=== PATIENT | female | born 1930 | race Caucasian/White ===

== ENCOUNTER 2018-09-29 15:26 | Inpatient (IN) ==
[2018-09-29 16:35] LABS: Calcium 8.9 mg/dL (8.6-10.3); Potassium 4.1 mEq/L (3.5-5.1)
[2018-09-29] MEDS ORDERED: 0.9 % Sodium Chloride 500 ML IVC ONE (16:38)
--- NOTE | 2018-09-29 16:47 | Emergency Department Note ---
Disposition Clinical Impression: SERENITY (acute kidney injury), Suspected UTI Altered mental status Qualifiers: Altered mental status type: unspecified Qualified Code(s): R41.82 - Altered mental status, unspecified Disposition: Admitted As Inpatient Condition: Fair Referrals: Estephania Lopes DO [Primary Care Provider] - Forms: ED Satisfaction Letter General Adult HPI - General Chief complaint: ED Recheck/Abnormal Lab/Rx Stated complaint: abnormal test results Time Seen by Provider: 09/29/18 15:48 Source: patient Limitations: no limitations - History of Present Illness Pain Scale: 9 - Related Data Home Medications Medication Instructions Recorded Confirmed Alendronate Sodium [Fosamax] 35 mg PO QMONTH 09/29/18 09/29/18 Aspirin [Lo-Dose Aspirin EC] 81 mg PO DAILY 09/29/18 09/29/18 Atenolol [Tenormin] 50 mg PO BID 09/29/18 09/29/18 Calcium Carbonate/Vitamin D3 1 each PO BID 09/29/18 09/29/18 [Calcium 500 + Vit D Caplet] Ciprofloxacin HCl [Cipro] 500 mg PO BID 09/29/18 09/29/18 Colesevelam HCl [Welchol] 1,875 mg PO BID 09/29/18 09/29/18 Cyanocobalamin (Vitamin B-12) 1,000 mcg SL MOWEFR 09/29/18 09/29/18 [Vitamin B-12] Docusate [Colace] 100 mg PO BID PRN 09/29/18 09/29/18 Ergocalciferol (VITAMIN D2) 50,000 unit PO GRACE 09/29/18 09/29/18 [Vitamin D2] Furosemide [Lasix] 20 mg PO AD 09/29/18 09/29/18 HYDROcodone/Acet 7.5/325 mg [[place] 1 tab PO Q6H PRN 09/29/18 09/29/18 7.5-325 mg] Insulin ASPART [Novolog Flexpen] 0 units SQ TID 09/29/18 09/29/18 Insulin Glargine,Hum.rec.anlog 42 unit SQ DAILY 09/29/18 09/29/18 [Lantus Solostar] Losartan Potassium [Cozaar] 50 mg PO DAILY 09/29/18 09/29/18 Magnesium Oxide [Magnesium] 400 mg PO DAILY 09/29/18 09/29/18 Memantine [Namenda] 5 mg PO BID 09/29/18 09/29/18 Multivit-Min/Iron Fum/Folic AC 1 each PO DAILY 09/29/18 09/29/18 [Fsjkw-Cckbure-Hrjsdfsx Tablet] [place]-3/Dha/Epa/Fish Oil [Fish Oil 1 each PO BID 09/29/18 09/29/18 1,000 mg Softgel] Pregabalin [Lyrica] 100 mg PO BID 09/29/18 09/29/18 Quetiapine Fumarate [SEROquel] 25 mg PO BID PRN 09/29/18 09/29/18 Ropinirole HCl [Requip] 3 mg PO HS 09/29/18 09/29/18 Allergies Allergy/AdvReac Type Severity Reaction Status Date / Time pravastatin Allergy Anaphylaxis Verified 06/06/15 13:59 atorvastatin AdvReac Muscle Pain Verified 06/06/15 13:59 Past Medical History - Past Medical History Medical history: Reports: dementia, diabetes, hypertension, osteoporosis, renal disease Psychiatric history: Reports: no psych history - Social History Smoking Status: Former smoker Smokeless Tobacco Status: No Alcohol use: Reports: none Drug use: Reports: none Physical Exam - General Limitations: no limitations General appearance: alert, in no apparent distress Course Vital Signs Temperature 99.0 F 09/29/18 15:32 Pulse Rate 67 09/29/18 15:32 Respiratory Rate 18 09/29/18 15:32 Blood Pressure 144/54 09/29/18 15:32 O2 Sat by Pulse Oximetry 97 09/29/18 15:32 Temperature 99.0 F 09/29/18 15:32 Pulse Rate 65 09/29/18 18:55 Respiratory Rate 14 09/29/18 18:55 Blood Pressure 136/56 09/29/18 18:55 O2 Sat by Pulse Oximetry 96 09/29/18 18:55 Oxygen Delivery Oxygen Delivery Room Air Medical Decision Making - Lab Data Result diagrams: 09/29/18 17:03 09/29/18 16:02 Lab Results 09/29/18 09/29/18 09/29/18 Range/Units 16:02 17:03 17:03 WBC 11.7 H (4.3-11.1) K/mcL RBC 3.45 L (3.82-4.97) M/mcL Hgb 10.5 L (11.5-15.4) g/dL Hct 31.9 L (35.3-44.9) % MCV 92.5 (83.0-100.0) fL MCH 30.4 (28.0-33.3) pg MCHC 32.9 (31.6-35.5) g/dL RDW 13.2 (11.5-14.5) % Plt Count 181 (140-400) K/mcL MPV 10.9 (9.4-12.4) fL Sodium 141 (136-145) mEq/L Potassium 4.1 (3.5-5.1) mEq/L Chloride 108 H (98-107) mEq/L Carbon Dioxide 27 (23-29) mEq/L BUN 47 H (8-23) mg/dL Creatinine 1.51 H (0.60-1.20) mg/dL Est GFR ( Amer) 39 L (> 60) Est GFR (Non-Af Amer) 32 L (> 60) BUN/Creatinine Ratio 31 H (6-26) Glucose 222 H (70-105) mg/dL Calculated Osmolality 311 H (280-300) Lactic Acid 0.7 (0.5-2.2) mmol/L Calcium 8.9 (8.6-10.3) mg/dL Urine Color (Yellow) Urine Clarity (Clear) Urine pH (5.0-8.0) pH Units Ur Specific [place] (1.010-1.025) Urine Protein (Neg-Trace) mg/dL Urine Glucose (UA) (Normal) mg/dL Urine Ketones (Negative) mg/dL Urine Blood (Negative) Urine Nitrite (Negative) Urine Bilirubin (Negative) Urine Urobilinogen (Normal) mg/dL Ur Leukocyte Esterase (Negative) Urine Microscopic RBC (0-3) per hpf Urine Microscopic WBC (0-3) per hpf Ur Squamous Epith Cells (None-Few) per lpf Urine Bacteria (None-Few) per hpf Hyaline Casts (None-Few) per lpf Ur Culture Indicated? (NO) 09/29/18 Range/Units 18:09 WBC (4.3-11.1) K/mcL RBC (3.82-4.97) M/mcL Hgb (11.5-15.4) g/dL Hct (35.3-44.9) % MCV (83.0-100.0) fL MCH (28.0-33.3) pg MCHC (31.6-35.5) g/dL RDW (11.5-14.5) % Plt Count (140-400) K/mcL MPV (9.4-12.4) fL Sodium (136-145) mEq/L Potassium (3.5-5.1) mEq/L Chloride (98-107) mEq/L Carbon Dioxide (23-29) mEq/L BUN (8-23) mg/dL Creatinine (0.60-1.20) mg/dL Est GFR ( Amer) (> 60) Est GFR (Non-Af Amer) (> 60) BUN/Creatinine Ratio (6-26) Glucose (70-105) mg/dL Calculated Osmolality (280-300) Lactic Acid (0.5-2.2) mmol/L Calcium (8.6-10.3) mg/dL Urine Color Yellow (Yellow) Urine Clarity Cloudy A (Clear) Urine pH 5.5 (5.0-8.0) pH Units Ur Specific [place] 1.013 (1.010-1.025) Urine Protein 30 H (Neg-Trace) mg/dL Urine Glucose (UA) 100 H (Normal) mg/dL Urine Ketones Negative (Negative) mg/dL Urine Blood Moderate H (Negative) Urine Nitrite Negative (Negative) Urine Bilirubin Negative (Negative) Urine Urobilinogen Normal (Normal) mg/dL Ur Leukocyte Esterase Large H (Negative) Urine Microscopic RBC 5-15 H (0-3) per hpf Urine Microscopic WBC 50-100 H (0-3) per hpf Ur Squamous Epith Cells Moderate H (None-Few) per lpf Urine Bacteria None Seen (None-Few) per hpf Hyaline Casts None Seen (None-Few) per lpf Ur Culture Indicated? YES A (NO) Attestation Statement - Attestation Attestation: I examined this patient and my medical decision-making was reviewed with the E D TECH/PA/Advanced Practice Nurse/Resident Physician. I agree with the documented findings, disposition and treatment plan as described except to the extent set forth below. The patient presents with intermittent confusion for the last 2 days and the patient was diagnosed with urinary tract infection and put on ciprofloxacin 2 days ago and she does not have any localized numbness or weakness of the extremities now however yesterday told the daughter she had numbness of the right hand but then told the provider at the primary care office that she did not have numbness of the hand. No slurred speech or facial droop. Does have chronic confusion from Alzheimer's disease and the patient does know the name of the hospital but does not know the day or month or year. She is breathing comfortably. My neuro exam does not show any focal neurologic deficit or any cranial nerve abnormalities at this time. Test results are pending including blood tests which will be repeated and urine testing. I did review the records from yesterday showing elevated creatinine level 1.69 did write for 500 mL normal saline bolus 1646 Did review the patient's test results. Creatinine is minimally improved but still elevated from baseline. IV fluids have been ordered. Urine results pending. The patient will be straight catheter. [id number]
--- NOTE | 2018-09-29 16:51 | Emergency Department Note ---
Disposition Clinical Impression: SERENITY (acute kidney injury), Suspected UTI Altered mental status Qualifiers: Altered mental status type: unspecified Qualified Code(s): R41.82 - Altered mental status, unspecified Disposition: Admitted As Inpatient Condition: Fair Referrals: Estephania Lopes DO [Primary Care Provider] - Forms: ED Satisfaction Letter Time of Disposition: 19:45 General Adult HPI - General Chief complaint: ED Recheck/Abnormal Lab/Rx Stated complaint: abnormal test results Time Seen by Provider: 09/29/18 15:48 Source: patient Limitations: no limitations Nursing Notes Reviewed: Yes Vital Signs Reviewed: Yes - History of Present Illness HPI Narrative: Patient presenting for abnormal chest x-ray, atelectasis vs infection in RML. Patient was seen by PCP for increased confusion over past 2-3 days. Daughter states she has Alzheimer's but has increased confusion from baseline. She knows she's at [place] and her date but is unsure of her age and what year it is. She denies slurred speech. She doesn't think she's anymore confused than baseline. She was treated with ciprofloxacin for suspected UTI yesterday. Patient also had elevated creatinine at 1.61, she sees Dr. Mortensen for CKD III. She denies urinary symptoms, chest pain, shortness of breath, fevers/chills, numbness/tingling, changes in bowel/bladder habits. Pt Subjective Complaint: Abnormal chest x-ray Pain Scale: 9 - Related Data Home Medications Medication Instructions Recorded Confirmed Alendronate Sodium [Fosamax] 35 mg PO QMONTH 09/29/18 09/29/18 Aspirin [Lo-Dose Aspirin EC] 81 mg PO DAILY 09/29/18 09/29/18 Atenolol [Tenormin] 50 mg PO BID 09/29/18 09/29/18 Calcium Carbonate/Vitamin D3 1 each PO BID 09/29/18 09/29/18 [Calcium 500 + Vit D Caplet] Ciprofloxacin HCl [Cipro] 500 mg PO BID 09/29/18 09/29/18 Colesevelam HCl [Welchol] 1,875 mg PO BID 09/29/18 09/29/18 Cyanocobalamin (Vitamin B-12) 1,000 mcg SL MOWEFR 09/29/18 09/29/18 [Vitamin B-12] Docusate [Colace] 100 mg PO BID PRN 09/29/18 09/29/18 Ergocalciferol (VITAMIN D2) 50,000 unit PO GRACE 09/29/18 09/29/18 [Vitamin D2] Furosemide [Lasix] 20 mg PO AD 09/29/18 09/29/18 HYDROcodone/Acet 7.5/325 mg [[place] 1 tab PO Q6H PRN 09/29/18 09/29/18 7.5-325 mg] Insulin ASPART [Novolog Flexpen] 0 units SQ TID 09/29/18 09/29/18 Insulin Glargine,Hum.rec.anlog 42 unit SQ DAILY 09/29/18 09/29/18 [Lantus Solostar] Losartan Potassium [Cozaar] 50 mg PO DAILY 09/29/18 09/29/18 Magnesium Oxide [Magnesium] 400 mg PO DAILY 09/29/18 09/29/18 Memantine [Namenda] 5 mg PO BID 09/29/18 09/29/18 Multivit-Min/Iron Fum/Folic AC 1 each PO DAILY 09/29/18 09/29/18 [Rbaao-Eogzqot-Exvglrak Tablet] [place]-3/Dha/Epa/Fish Oil [Fish Oil 1 each PO BID 09/29/18 09/29/18 1,000 mg Softgel] Pregabalin [Lyrica] 100 mg PO BID 09/29/18 09/29/18 Quetiapine Fumarate [SEROquel] 25 mg PO BID PRN 09/29/18 09/29/18 Ropinirole HCl [Requip] 3 mg PO HS 09/29/18 09/29/18 Allergies Allergy/AdvReac Type Severity Reaction Status Date / Time pravastatin Allergy Anaphylaxis Verified 06/06/15 13:59 atorvastatin AdvReac Muscle Pain Verified 06/06/15 13:59 Review of Systems: Patient denies CP, SOB, blurred vision, MEDRANO, abdominal pain, n/v, changes in bowel/bladder habits, numbness/tingling. All systems ED: reviewed and negative except as stated. Review of Systems: As Per HPI Past Medical History - Past Medical History Medical history: Reports: dementia, diabetes, hypertension, osteoporosis, renal disease Psychiatric history: Reports: no psych history - Social History Smoking Status: Former smoker Smokeless Tobacco Status: No Alcohol use: Reports: none Drug use: Reports: none Physical Exam - General Limitations: no limitations General appearance: alert, in no apparent distress - Head Head exam: atraumatic - Respiratory Respiratory exam: Present: normal lung sounds bilaterally - Cardiovascular Cardiovascular exam: Present: regular rate, normal rhythm - Abdominal Exam Abdominal exam: Present: soft, Non-Tender - Extremities Exam Extremities exam: Present: normal inspection - Expanded Lower Extremity Exam Lower leg exam: Present: swelling (+1 pitting edema in lower 1/3 of leg bilaterally) - Neurological Exam Neurological exam: Present: alert, CN II-XII intact - Expanded Neurological Exam Cranial nerves: EOM function (II, III, IV, ): Normal, facial sensation (V): Normal, facial palsy (VII): Normal, gag reflex (IX): Normal, spinal accessory function (XI): Normal, tongue deviation (XII): Normal Motor strength - LUE: 5/5 Motor strength - RUE: 5/5 Motor strength - LLE: 5/5 Motor strength - RLE: 5/5 Sensory exam upper extremity: light touch: Normal Sensory exam lower extremity: light touch: Normal - Psychiatric Psychiatric exam: Present: normal affect, normal mood - Skin Skin exam: Present: warm, dry Course Course Narrative: Will order UA from straight cath, chest x-ray, CBC, BMP, lactic acid. Will give patient 500 ml fluid bolus of normal saline. Head CT to rule out bleed. Vital Signs Temperature 99.0 F 09/29/18 15:32 Pulse Rate 67 09/29/18 15:32 Respiratory Rate 18 09/29/18 15:32 Blood Pressure 144/54 09/29/18 15:32 O2 Sat by Pulse Oximetry 97 09/29/18 15:32 Temperature 99.0 F 09/29/18 15:32 Pulse Rate 65 09/29/18 18:55 Respiratory Rate 14 09/29/18 18:55 Blood Pressure 136/56 09/29/18 18:55 O2 Sat by Pulse Oximetry 96 09/29/18 18:55 Oxygen Delivery Oxygen Delivery Room Air Medical Decision Making - MDM Narrative Medical decision making narrative: CBC shows WBC of 11.7, improved from 12.8 yesterday. BMP shows creatinine of 1.5, improved from 1.61 yesterday. Glucose 222. Lactic acid normal. Chest x- ray shows minimal linear opacities at lung base favored to reflect atelectasis, no well-defined consolidation. Head CT shows no acute process. Patient given dose of rocephin in ED. Family states patient is still more confused than baseline. Spoke to hospitalist, who agrees to accept patient for AMS and SERENITY. - Medical Records Medical records reviewed: Yes I reviewed the patient's medical records. - Lab Data Lab results reviewed: Yes I reviewed the patient's lab results. Result diagrams: 09/29/18 17:03 09/29/18 16:02 Lab Results 09/29/18 09/29/18 09/29/18 Range/Units 16:02 17:03 17:03 WBC 11.7 H (4.3-11.1) K/mcL RBC 3.45 L (3.82-4.97) M/mcL Hgb 10.5 L (11.5-15.4) g/dL Hct 31.9 L (35.3-44.9) % MCV 92.5 (83.0-100.0) fL MCH 30.4 (28.0-33.3) pg MCHC 32.9 (31.6-35.5) g/dL RDW 13.2 (11.5-14.5) % Plt Count 181 (140-400) K/mcL MPV 10.9 (9.4-12.4) fL Sodium 141 (136-145) mEq/L Potassium 4.1 (3.5-5.1) mEq/L Chloride 108 H (98-107) mEq/L Carbon Dioxide 27 (23-29) mEq/L BUN 47 H (8-23) mg/dL Creatinine 1.51 H (0.60-1.20) mg/dL Est GFR ( Amer) 39 L (> 60) Est GFR (Non-Af Amer) 32 L (> 60) BUN/Creatinine Ratio 31 H (6-26) Glucose 222 H (70-105) mg/dL Calculated Osmolality 311 H (280-300) Lactic Acid 0.7 (0.5-2.2) mmol/L Calcium 8.9 (8.6-10.3) mg/dL Urine Color (Yellow) Urine Clarity (Clear) Urine pH (5.0-8.0) pH Units Ur Specific [place] (1.010-1.025) Urine Protein (Neg-Trace) mg/dL Urine Glucose (UA) (Normal) mg/dL Urine Ketones (Negative) mg/dL Urine Blood (Negative) Urine Nitrite (Negative) Urine Bilirubin (Negative) Urine Urobilinogen (Normal) mg/dL Ur Leukocyte Esterase (Negative) Urine Microscopic RBC (0-3) per hpf Urine Microscopic WBC (0-3) per hpf Ur Squamous Epith Cells (None-Few) per lpf Urine Bacteria (None-Few) per hpf Hyaline Casts (None-Few) per lpf Ur Culture Indicated? (NO) 09/29/18 Range/Units 18:09 WBC (4.3-11.1) K/mcL RBC (3.82-4.97) M/mcL Hgb (11.5-15.4) g/dL Hct (35.3-44.9) % MCV (83.0-100.0) fL MCH (28.0-33.3) pg MCHC (31.6-35.5) g/dL RDW (11.5-14.5) % Plt Count (140-400) K/mcL MPV (9.4-12.4) fL Sodium (136-145) mEq/L Potassium (3.5-5.1) mEq/L Chloride (98-107) mEq/L Carbon Dioxide (23-29) mEq/L BUN (8-23) mg/dL Creatinine (0.60-1.20) mg/dL Est GFR ( Amer) (> 60) Est GFR (Non-Af Amer) (> 60) BUN/Creatinine Ratio (6-26) Glucose (70-105) mg/dL Calculated Osmolality (280-300) Lactic Acid (0.5-2.2) mmol/L Calcium (8.6-10.3) mg/dL Urine Color Yellow (Yellow) Urine Clarity Cloudy A (Clear) Urine pH 5.5 (5.0-8.0) pH Units Ur Specific [place] 1.013 (1.010-1.025) Urine Protein 30 H (Neg-Trace) mg/dL Urine Glucose (UA) 100 H (Normal) mg/dL Urine Ketones Negative (Negative) mg/dL Urine Blood Moderate H (Negative) Urine Nitrite Negative (Negative) Urine Bilirubin Negative (Negative) Urine Urobilinogen Normal (Normal) mg/dL Ur Leukocyte Esterase Large H (Negative) Urine Microscopic RBC 5-15 H (0-3) per hpf Urine Microscopic WBC 50-100 H (0-3) per hpf Ur Squamous Epith Cells Moderate H (None-Few) per lpf Urine Bacteria None Seen (None-Few) per hpf Hyaline Casts None Seen (None-Few) per lpf Ur Culture Indicated? YES A (NO) - Radiology Data Radiology results reviewed: Yes I reviewed the patient's radiology results.
[2018-09-29 17:14] LABS: Hematocrit 31.9 % (35.3-44.9); Hemoglobin 10.5 g/dL (11.5-15.4); Mean Corpuscular HGB Conc 32.9 g/dL (31.6-35.5); Mean Corpuscular Hemoglobin 30.4 pg (28.0-33.3); Mean Corpuscular Volume 92.5 fL (83.0-100.0); Mean Platelet Volume 10.9 fL (9.4-12.4); Platelet Count 181 K/mcL (140-400); Red Blood Count 3.45 M/mcL (3.82-4.97); Red Cell Distribution Width 13.2 % (11.5-14.5)
[2018-09-29 18:26] LABS: Bilirubin,Urine Negative (Negative); Blood,Urine Moderate (Negative); Clarity,Urine Cloudy (Clear); Color,Urine Yellow (Yellow); Glucose,Urine (UA) 100 mg/dL (Normal); Ketones,Urine Negative (Negative); Leukocyte Esterase,Urine Large (Negative); Nitrite,Urine Negative (Negative); PH,Urine 5.5 pH Units (5.0-8.0); Protein,Urine 30 mg/dL (Neg-Trace); Specific Gravity,Urine 1.013 (1.010-1.025); Urobilinogen,Urine Normal (Normal)
[2018-09-29 18:28] LABS: Bacteria,Urine None Seen per hpf (None-Few); Hyaline Casts,Urine None Seen per lpf (None-Few); Squamous Epithelial Cell,Urine Moderate per lpf (None-Few); WBC,Urine 50-100 per hpf (0-3)
[2018-09-29] MEDS ORDERED: cefTRIAXone 2,000 MG in Water for inj. (sterile) 20 ML 20 ML IVP ONE (19:03)
[2018-09-30] MEDS ORDERED: Naloxone 0.4 MG/ML INJ IVP PRN (01:41)
[2018-09-30] MEDS ORDERED: *HR* Dextrose 50 % in Water (Syg) 50 ML SYRINGE IVP PRN (05:08)
[2018-09-30] MEDS ORDERED: D5% in Water 1,000 ML IVC PRN (05:08)
[2018-09-30] MEDS ORDERED: Dextrose Gel 15 GM/37.5 ML TUBE PO PRN ×2 (05:08)
[2018-09-30] MEDS ORDERED: Dextrose 4 GM Chewable Tablets PO PRN ×2 (05:08)
--- NOTE | 2018-09-30 05:18 | Internal Med History&Physical ---
Date of Encounter: 09/30/18 Time of Encounter: 02:35 Internal Medicine - H&P: HPI Chief complaint: Urinary tract infection Admitted From: Emergency Dept Plans for Post Hospital Care: Home History of present illness: Ms. Munson is a 88 year old female Patient presented to the emergency room for increased confusion for the last few days. She has a history of Alzheimer's disease at baseline. She has a recent history of diagnosis of a urinary tract infection, and was started on ciprofloxacin outpatient. Her granddaughter is at bedside, and assists with the history. She says that the patient had a fall last Thursday but did not hit her head or lose consciousness. On Thursday she went to her primary care physician, and was diagnosed with a urinary tract infection. Patient continued to have pain with urination and increased confusion from her normal baseline. She has history of kidney disease stage III and follows with nephrology. In the emergency room patient's vital signs were within normal limits. Patien t's CBC was also within normal limits. Patient's BMP showed a creatinine of 1.51 which is up from her baseline. Patient's GFR was also 32 which is decreased from her baseline of around 45. Urinalysis was negative for nitrites but had large leukocyte esterase. Chest x-ray showed minimal linear opacities at the lung bases most likely atelectasis. There was no well-defined consolidation. Head CT showed no acute intracranial abnormality. Patient was started on ceftriaxone, and urine culture was ordered. She was sent to the medical floor for further management. Upon my evaluation, patient is resting comfortably in hospital bed. She is having some back pain which she has baseline. She denies chest pain, nausea, vomiting and diarrhea. She does have some constipation and lower abdominal pain. On my exam she is awake alert and oriented 3. Past Med Surg Social Fam HX - Past Medical History Medical history: dementia, diabetes, hypertension, osteoporosis, renal disease Additional medical history: neuropathy, spinal stenosis, alzheimers, stage 3 kidney dx Psychiatric history: no psych history - Social History Smoking Status: Former smoker Smokeless Tobacco Status: No Alcohol use: none Drug use: none - Family History Sister Hx Family Cancer: Yes (lung) Brother Hx Family Medical Disorders: Yes (diabetes) Internal Medicine - H&P: Meds Alendronate Sodium [Fosamax] 35 mg PO QMONTH 09/29/18 [History] Aspirin [Lo-Dose Aspirin EC] 81 mg PO DAILY 09/29/18 [History] Atenolol [Tenormin] 50 mg PO BID 09/29/18 [History] Calcium Carbonate/Vitamin D3 [Calcium 500 + Vit D Caplet] 1 each PO BID 09/29/18 [History] Ciprofloxacin HCl [Cipro] 500 mg PO BID 09/29/18 [History] Colesevelam HCl [Welchol] 1,875 mg PO BID 09/29/18 [History] Cyanocobalamin (Vitamin B-12) [Vitamin B-12] 1,000 mcg SL MOWEFR 09/29/18 [History] Docusate [Colace] 100 mg PO BID PRN 09/29/18 [History] Ergocalciferol (VITAMIN D2) [Vitamin D2] 50,000 unit PO GRACE 09/29/18 [History] Furosemide [Lasix] 20 mg PO AD 09/29/18 [History] HYDROcodone/Acet 7.5/325 mg [[place] 7.5-325 mg] 1 tab PO Q6H PRN 09/29/18 [History] Insulin ASPART [Novolog Flexpen] 0 units SQ TID 09/29/18 [History] Insulin Glargine,Hum.rec.anlog [Lantus Solostar] 42 unit SQ DAILY 09/29/18 [His tory] Losartan Potassium [Cozaar] 50 mg PO DAILY 09/29/18 [History] Magnesium Oxide [Magnesium] 400 mg PO DAILY 09/29/18 [History] Memantine [Namenda] 5 mg PO BID 09/29/18 [History] Multivit-Min/Iron Fum/Folic AC [[place]-Dnlsxnb-Vwwpuohy Tablet] 1 each PO DAILY 09/29/18 [History] [place]-3/Dha/Epa/Fish Oil [Fish Oil 1,000 mg Softgel] 1 each PO BID 09/29/18 [History] Pregabalin [Lyrica] 100 mg PO BID 09/29/18 [History] Quetiapine Fumarate [SEROquel] 25 mg PO BID PRN 09/29/18 [History] Ropinirole HCl [Requip] 3 mg PO HS 09/29/18 [History] Allergy/AdvReac Type Severity Reaction Status Date / Time pravastatin Allergy Anaphylaxis Verified 06/06/15 13:59 atorvastatin AdvReac Muscle Pain Verified 06/06/15 13:59 All Systems PM: A 10-system review of systems was performed and is negative for pertinent findings except as documented above in the HPI. - Constitutional Vitals: Temp Pulse Resp BP Pulse Ox 97.5 F L 80 16 161/69 93 09/30/18 03:16 09/30/18 03:16 09/30/18 03:16 09/30/18 03:16 09/30/18 03:16 General appearance: Present: cooperative, A&O X 3, pleasant, no acute distress, answers questions appropriately Exam: - - Head Head exam: Present: normal inspection - Eye Eye exam: Present: EOMI, normal appearance Additional comments: Poor vision at baseline - Neck Neck exam general surgery: Present: full ROM - Respiratory Respiratory exam: Present: CTAB. Absent: rales, respiratory distress, rhonchi, wheezes - Cardiovascular Cardiovascular exam: Present: RRR. Absent: diastolic murmur, systolic murmur - GI/Abdominal GI/Abdominal exam: Present: normal bowel sounds, soft, tenderness Additional comments: Lower abdominal pain - Extremities Exam Extremities exam: Present: warm, radial pulses palpable and symmetrical. Absent: pedal edema, tenderness - Neurological Exam Neurological exam: Present: no focal deficits, strengths equal and symetr throughout. Absent: motor sensory deficit, facial droop, speech deficit - Skin Skin exam: Present: dry, normal color, warm Internal Med - H&P Results - Labs CBC & Chem 7: 09/29/18 17:03 09/29/18 16:02 Labs: Short CBC 09/29/18 Range/Units 17:03 WBC 11.7 H (4.3-11.1) K/mcL Hgb 10.5 L (11.5-15.4) g/dL Hct 31.9 L (35.3-44.9) % Plt Count 181 (140-400) K/mcL BMP 09/29/18 16:02 Sodium 141 Potassium 4.1 Chloride 108 H Carbon Dioxide 27 BUN 47 H Creatinine 1.51 H Glucose 222 H Calcium 8.9 Urine 09/29/18 Range/Units 18:09 Urine Color Yellow (Yellow) Urine Clarity Cloudy A (Clear) Urine pH 5.5 (5.0-8.0) pH Units Ur Specific [place] 1.013 (1.010-1.025) Urine Protein 30 H (Neg-Trace) mg/dL Urine Glucose (UA) 100 H (Normal) mg/dL - Impressions ITS Impressions Chest X-Ray 09/29/18 16:38 IMPRESSION: 1. Minimal linear opacities at the lung bases favored to reflect atelectasis. No well-defined consolidative change identified. D/ / Noel Grewal MD / Noel Grewal MD Interpreting Provider: Noel Grewal MD Head CT 09/29/18 17:35 IMPRESSION: No acute intracranial abnormality. D/ / Sylvain Bear MD / Sylvain Bear MD Interpreting Provider: Sylvain Bear MD - Assessment and Plan (1) Suspected UTI Current Visit: Yes Status: Acute Assessment and plan: patient's UA not totally convincing of infection, but is positive for large leukocyte esterase and 5200 white blood cells. Nitrites are negative. She has been treated outpatient for urinary tract infection already which can skew these results. She started on ceftriaxone in the ER. She does state she has some dysuria which has been going on for about a week. Continue ceftriaxone Follow-up urine culture (2) Back pain Current Visit: Yes Status: Acute Assessment and plan: Chronic, continue home meds Qualifiers: Chronicity: chronic Back pain laterality: unspecified Sciatica presence: unspecified whether sciatica present Qualified Code(s): M54.5 - Low back pain; G89.29 - Other chronic pain (3) SERENITY (acute kidney injury) Current Visit: Yes Status: Acute Assessment and plan: Elevated creatinine from baseline. Patient received 500 mL bolus of IV fluids in the ER. Repeat labs in the morning Continue IV fluid hydration (4) Altered mental status Current Visit: Yes Status: Acute Assessment and plan: on my exam, patient is awake alert and oriented 3. She has baseline dementia. 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 Continue to monitor Qualifiers: Altered mental status type: unspecified Qualified Code(s): R41.82 - Altered mental status, unspecified (5) DVT prophylaxis Current Visit: Yes Status: Acute Assessment and plan: Subcutaneous heparin - Time Spent With Patient Total time spent is greater than 50% in coordination of care (as documented) at patient's floor/unit and/or counseling patient: Greater than 35 minutes
[2018-09-30] MEDS ORDERED: 0.9 % Sodium Chloride 1,000 ML IVC ONE (05:55)
[2018-09-30] MEDS: cefTRIAXone 2,000 MG in Water for inj. (sterile) 20 ML 20 ML IVP SCH (06:10)
[2018-09-30] MEDS: *HR* HYDROcodone/Acet 7.5/325 mg TABLET PO PRN ×3 (06:10→20:46)
[2018-09-30] MEDS: *HR* Heparin 5,000 UNIT/ML VIAL SQ SCH ×2 (06:10→17:59)
[2018-09-30 06:19] LABS: Hematocrit 31.7 % (35.3-44.9); Hemoglobin 10.5 g/dL (11.5-15.4); Mean Corpuscular HGB Conc 33.1 g/dL (31.6-35.5); Mean Corpuscular Hemoglobin 30.2 pg (28.0-33.3); Mean Corpuscular Volume 91.1 fL (83.0-100.0); Platelet Count 204 K/mcL (140-400); Red Blood Count 3.48 M/mcL (3.82-4.97); Red Cell Distribution Width 13.3 % (11.5-14.5)
[2018-09-30 06:35] LABS: Calcium 8.7 mg/dL (8.6-10.3); Potassium 4.1 mEq/L (3.5-5.1)
[2018-09-30] MEDS: Aspirin Enteric Coated 81 MG Tablet PO SCH (09:02)
[2018-09-30] MEDS: Insulin LISPRO 300 UNITS/3 ML VIAL SQ SCH ×3 (09:02→17:58)
--- NOTE | 2018-09-30 09:34 | Internal Med Progress Note ---
<Michael Pena - Last Filed: 09/30/18 17:06> Hospitalist Progress Note - Encounter Date of Encounter: 09/30/18 Time of Encounter: 08:40 - Subjective Interval History: Patient 88 yo female, is here for possible UTI and SERENITY on CKD. Patient on exam is noticeably forgetful, the granddaughter states that it is worse than her baseline. Patient has a history of dementia per family. Patient denies palpitation, orthopnea, and chest pain but admits to edema. Patient denies an overnight cough, dyspnea, and wheezing. patient denies vomiting, diarrhea, or rectal bleeding, she admits to being constipated. Patient admits to having an i ncrease urinary urgency and dysuria. The nurse on staff didnt have anything to note. - Exam Vitals: Temp Pulse Resp BP Pulse Ox 98.3 F 76 14 150/74 95 09/30/18 08:31 09/30/18 08:31 09/30/18 08:31 09/30/18 08:31 09/30/18 08:31 Exam: GEN: Well appearing, alert, and interactive. Neuro: AA&O x1, CN II-XII grossly intact, no focal deficits Cardio: RRR, no rubs, no murmurs, b/l LE edema present Lungs: normal effort, no wheezing, no rales, CTA b/l GI: Soft, non-distended, BSx4, + hypogastric tenderness, + CVA tenderness I & O 09/29/18 15:26 thru 09/30/18 13:38 Intake Total 760 Output Total 850 Balance -90 Weight 93.2 kg Intake: IV Fluids 520 0.9 % Sodium Chloride 500 ML @ 500 1875 mls/hr IVC .Q16M ONE Rx#: [id number] Rocephin 2,000 MG In Water for 20 inj. (sterile) 20 ML @ 600 mls/ hr IVP ONCE ONE Rx#:[id number] Oral 240 Output: Urine 850 Other: Meal Breakfast Percent of Meal Consumed 100% Stool Size Large Stool Consistency formed Stool Characteristics Normal for Patient Stool Color Brown # Voids 1 # Bowel Movements 1 Blood Glucose* [address]: No acute abnormalities Chest x-ray: Atelectasis - Assessment and Plan (1) Suspected UTI Current Visit: Yes Status: Acute Assessment and Plan: Urine Culture: pending. Urine analysis: Positive Leukocyte esterase, microscopic RBC & WBC. Negative nitrites and bacteria. Patient was given a fluorquinolone before the urine was collected WBC: 8.9, Temp: 98.8 F, pulse rate: 63, RR: 14, BP: 171/79 Start IV Ceftriaxone Sodium 2,000 mg in sterile water 20 mls @ 600 mls/hr IVP Q24H SMILEY (2) Altered mental status Current Visit: Yes Status: Acute Assessment and Plan: Head CT: no acute abnormalities, CN II-XII grossly intact Continue to monitor AMS likely secondary to acute UTI (3) SERENITY (acute kidney injury) Current Visit: Yes Status: Acute Assessment and Plan: BUN: 40, Cr: 1.27, CrCl: 44, GFR: 40 Stop IV fluids, promote oral rehydration Likely pre-renal SERENITY secondary to dehydration. Kidneys responded to IV fluids. (4) CKD (chronic kidney disease) stage 3, GFR 30-59 ml/min Current Visit: Yes Status: Chronic Assessment and Plan: BUN: 40, Cr: 1.27, CrCl: 44, GFR: 40 BUN baseline: ~34, Cr baseline: ~1.01, GFR baseline: ~59 Stop IV fluids, Start oral rehydration. (5) Hypovolemia Current Visit: Yes Status: Resolved Assessment and Plan: Na: 141 --> 142, GFR: 39 --> 48 Normal skin turgor, normal mucus membranes, 2/4 peripheral pulses Stop IV fluids, Start oral rehydration Hypovolemia likely secondary to dehydration secondary to hypersomnolence (6) Dementia Current Visit: Yes Status: Chronic Assessment and Plan: AMS per family Continue memantine, continue monitoring (7) HTN (hypertension) Current Visit: No Status: Chronic Assessment and Plan: Blood Pressure: 136/67 --> 171/79. Head CT: No acute abnormalities Start Hydralazine Hcl 10 mg IVP Q6HR PRN, Continue Atenolol 50 mg PO BID SMILEY (8) Diabetes mellitus Current Visit: No Status: Chronic Assessment and Plan: Glucose: 222 --> 207, Urine analysis shows increase glucose, protein in the urine Continue Gluctose, and Glucagen, continue Humalog - Time Spent with Patient Total time spent is greater than 50% in coordination of care (as documented) at patient's floor/unit and/or counseling patient: 25 - 35 minutes Internal Medicine: Result - Labs CBC & Chem 7: 09/30/18 05:40 09/30/18 05:40 Labs: Short CBC 09/29/18 09/30/18 Range/Units 17:03 05:40 WBC 11.7 H 8.9 (4.3-11.1) K/mcL Hgb 10.5 L 10.5 L (11.5-15.4) g/dL Hct 31.9 L 31.7 L (35.3-44.9) % Plt Count 181 204 (140-400) K/mcL BMP 09/29/18 09/30/18 16:02 05:40 Sodium 141 142 Potassium 4.1 4.1 Chloride 108 H 112 H Carbon Dioxide 27 21 L BUN 47 H 40 H Creatinine 1.51 H 1.27 H Glucose 222 H 207 H Calcium 8.9 8.7 Urine 09/29/18 Range/Units 18:09 Urine Color Yellow (Yellow) Urine Clarity Cloudy A (Clear) Urine pH 5.5 (5.0-8.0) pH Units Ur Specific [place] 1.013 (1.010-1.025) Urine Protein 30 H (Neg-Trace) mg/dL Urine Glucose (UA) 100 H (Normal) mg/dL - Impressions Impressions Chest X-Ray 09/29/18 16:38 IMPRESSION: 1. Minimal linear opacities at the lung bases favored to reflect atelectasis. No well-defined consolidative change identified. D/ / Noel Grewal MD / Noel Grewal MD Interpreting Provider: Noel Grewal MD Head CT 09/29/18 17:35 IMPRESSION: No acute intracranial abnormality. D/ / Sylvain Bear MD / Sylvain Bear MD Interpreting Provider: Sylvain Bear MD Consult Discharge Plan - Plan Referrals: Estephania Lopes DO [Primary Care Provider] - <Kemar Braxton - Last Filed: 09/30/18 18:22> Hospitalist Progress Note - Encounter Date of Encounter: 09/30/18 Internal Medicine: Result - Labs CBC & Chem 7: 09/30/18 05:40 09/30/18 05:40 Labs: Short CBC 09/30/18 Range/Units 05:40 WBC 8.9 (4.3-11.1) K/mcL Hgb 10.5 L (11.5-15.4) g/dL Hct 31.7 L (35.3-44.9) % Plt Count 204 (140-400) K/mcL BMP 09/30/18 05:40 Sodium 142 Potassium 4.1 Chloride 112 H Carbon Dioxide 21 L BUN 40 H Creatinine 1.27 H Glucose 207 H Calcium 8.7 Urine 09/29/18 Range/Units 18:09 Urine Color Yellow (Yellow) Urine Clarity Cloudy A (Clear) Urine pH 5.5 (5.0-8.0) pH Units Ur Specific [place] 1.013 (1.010-1.025) Urine Protein 30 H (Neg-Trace) mg/dL Urine Glucose (UA) 100 H (Normal) mg/dL - Impressions Impressions Head CT 09/29/18 17:35 IMPRESSION: No acute intracranial abnormality. D/ / Sylvain Bear MD / Sylvain Bear MD Interpreting Provider: Sylvain Bear MD - Attending Attestation Patient seen and examined independently, including review of objective data including labs, micro, and imaging. I agree with plan of care as documented above by the medical student; MDM discussed and pt examined together. Here are additional comments: S: Pt already feeling better, decreased back pain, improving appetite, daughter is present and reports considerable improvement already O: Vitals reviewed and unremarkable, patient awake and oriented to person, at baseline per daughter, no abdominal tenderness, lungs clear and heart regular, does have pedal edema, UA w +LE +WBC A/P: UTI causing dehydration and acute metabolic encephalopathy. Continue Rocephin and de-escalate to PO when UCx results. D/c MIVF as pt now has good PO. Likely d/c home tomorrow on PO abx. <Michael Pena Filed: 09/30/18 17:06> (2) Altered mental status Qualifiers: Altered mental status type: unspecified Qualified Code(s): R41.82 - Altered mental status, unspecified (6) Dementia Qualifiers: Dementia type: Alzheimer's disease (8) Diabetes mellitus Qualifiers: Diabetes mellitus type: type 2
[2018-09-30] MEDS ORDERED: Insulin LISPRO 300 UNITS/3 ML VIAL SQ SCH (21:00)
[2018-10-01] MEDS ORDERED: Melatonin 3 MG TABLET PO PRN ×2 (01:17→11:56)
[2018-10-01] MEDS: *HR* HYDROcodone/Acet 7.5/325 mg TABLET PO PRN ×3 (03:28→18:47)
[2018-10-01 04:09] LABS: Calcium 8.4 mg/dL (8.6-10.3); Potassium 4.1 mEq/L (3.5-5.1)
[2018-10-01] MEDS: cefTRIAXone 2,000 MG in Water for inj. (sterile) 20 ML 20 ML IVP SCH (06:16)
[2018-10-01] MEDS: *HR* Heparin 5,000 UNIT/ML VIAL SQ SCH ×2 (06:17→17:16)
[2018-10-01] MEDS: Aspirin Enteric Coated 81 MG Tablet PO SCH (08:21)
[2018-10-01] MEDS: Insulin LISPRO 300 UNITS/3 ML VIAL SQ SCH ×3 (08:21→17:16)
--- NOTE | 2018-10-01 10:00 | Internal Med Progress Note ---
<Michael Pena - Last Filed: 10/01/18 14:23> Hospitalist Progress Note - Encounter Date of Encounter: 10/01/18 Time of Encounter: 08:30 - Subjective Interval History: Patient is in no acute distress today. No notable events overnight. Patient is having worsening cognitive ability. Patient states and supported by her family that she denied fatigue but admitted to change in her sleep patterns. She denied headaches, vertigo, but admits to being unstable when upright. She admits to a slight cough but denies wheezing, or sputum production. Patient admits to edema of the lower extremites but denies palpitations, diaphoresis or orthopnea. She complained last night of loose stools and an increase in appetite. She is still complaining of increased urgency and burning on urination. The nurse didn't express any concern. - Exam Vitals: Temp Pulse Resp BP Pulse Ox 98.2 F 56 17 146/75 95 10/01/18 05:10 10/01/18 05:10 10/01/18 05:10 10/01/18 05:10 10/01/18 05:10 Exam: GEN: NAD, well appearing, interactive Cardiac: RRR, no rubs, no murmurs, LE edema, 2/4 peripheral pulse Lungs: CTA b/l, no wheezes, no rales GI: BSx4, non-tender to palpations Extremities: Tender to R ankle pain Neuro: MOCA 07/25, AA&Ox1 I & O 09/29/18 15:26 thru 10/01/18 09:14 Intake Total 900 Output Total 851 Balance 49 Weight 93.2 kg Intake: IV Fluids 540 0.9 % Sodium Chloride 500 ML @ 500 1875 mls/hr IVC .Q16M ONE Rx#: [id number] Rocephin 2,000 MG In Water for 40 inj. (sterile) 20 ML @ 600 mls/ hr IVP Q24H SMILEY Rx#:[id number] Oral 360 Output: Urine 851 Other: Meal Breakfast Percent of Meal Consumed 70% Stool Size Smear Stool Consistency soft formed Stool Characteristics Normal for Patient Stool Color Brown # Voids 1 # Bowel Movements 2 Blood Glucose* 258 Urine culture: No growth - Assessment and Plan (1) Suspected UTI Current Visit: Yes Status: Acute Assessment and Plan: Urine Culture: no growth. Urine analysis: Positive Leukocyte esterase, microscopic RBC & WBC. Negative nitrites and bacteria. Patient was given a fluorquinolone before the urine was collected DC IV Ceftriaxone Sodium, Start Cephalexin 500 mg PO q12h X10 days (2) Altered mental status Current Visit: Yes Status: Acute Assessment and Plan: Head CT: no acute abnormalities, CN II-XII grossly intact Continue to monitor, promote wakefulness by increasing light and sun exposure. MOCA score of 07/25 AMS likely secondary to acute UTI (3) SERENITY (acute kidney injury) Current Visit: Yes Status: Acute Assessment and Plan: BUN: 30, Cr: 1.25, GFR: 40 BUN baseline: ~34, Cr baseline: ~1.01, GFR baseline: ~59 Continue to encourage oral re-hydration (4) CKD (chronic kidney disease) stage 3, GFR 30-59 ml/min Current Visit: Yes Status: Chronic Assessment and Plan: BUN: 30, Cr: 1.25, GFR: 40 BUN baseline: ~34, Cr baseline: ~1.01, GFR baseline: ~59 Continue oral re-hydration (5) Hypovolemia Current Visit: Yes Status: Resolved Assessment and Plan: Na: 142 --> 142, GFR: 40 --> 40 Normal skin turgor, normal mucus membranes, 2/4 peripheral pulses Stop IV fluids, Start oral rehydration Hypovolemia likely secondary to dehydration secondary to hypersomnolence (6) Dementia Current Visit: Yes Status: Chronic Assessment and Plan: Patient has a history of Alzheimer's MOCA evaluation showed 07/25. - Executive functioning 3/5 - Naming 3/3 - Attention 2/2 - Language 2/3 - Abstraction 1/2 - Delayed Recall 0/5 - Orientation 0/6 Continue memantine, continue monitoring (7) HTN (hypertension) Current Visit: No Status: Chronic Assessment and Plan: Blood Pressure: 171/79--> 146/[address]: No acute abnormalities Continue Hydralazine Hcl 10 mg IVP Q6HR PRN, Continue Atenolol 50 mg PO BID SMILEY (8) Diabetes mellitus Current Visit: No Status: Chronic Assessment and Plan: Glucose: 207 --> 214, Urine analysis shows increase glucose, protein in the urine Continue Gluctose, and Glucagen, continue Humalog (9) Sleep disturbance, unspecified Current Visit: Yes Status: Acute Assessment and Plan: Patient and her family are reporting a decrease in sleep Start Melatonin 3 mg PO PRN. Promote proper [employer] daytime arousal, ie increasing light/sun exposure. Prioritize quitetime Sleep disturbances most likely secondary to abnormal sleep hygiene. - Time Spent with Patient Total time spent is greater than 50% in coordination of care (as documented) at patient's floor/unit and/or counseling patient: 25 - 35 minutes Internal Medicine: Result - Labs CBC & Chem 7: 09/30/18 05:40 10/01/18 03:14 Labs: BMP 10/01/18 03:14 Sodium 142 Potassium 4.1 Chloride 112 H Carbon Dioxide 24 BUN 30 H Creatinine 1.25 H Glucose 214 H Calcium 8.4 L Consult Discharge Plan - Plan Referrals: Estephania Lopes DO [Primary Care Provider] - Prescriptions: cephALEXin [Keflex] 500 mg PO BID #10 capsule <Kemar Braxton - Last Filed: 10/01/18 14:47> Hospitalist Progress Note - Encounter Date of Encounter: 10/01/18 - Assessment and Plan (1) Dementia Current Visit: Yes Status: Chronic Internal Medicine: Result - Labs CBC & Chem 7: 09/30/18 05:40 10/01/18 03:14 Labs: BMP 10/01/18 03:14 Sodium 142 Potassium 4.1 Chloride 112 H Carbon Dioxide 24 BUN 30 H Creatinine 1.25 H Glucose 214 H Calcium 8.4 L - Attending Attestation Patient seen and examined together with the medical student. Relevant objective data including labs, imaging, and micro were reviewed. Medical decision making was discussed with the medical student and is reflected in the note above, with the following comments: UTI causing acute metabolic encephalopathy: UTI improving, UCx expectantly negative given recent cipro use, continues to improve on Rocephin and will deescalate empirically to Keflex 500 bid ending 10/05. Encephalopathy resolved, and pt able to stand and take a few steps assisted on my exam. PO intake improving. Awaiting PT/OT evaluation for discharge rec's. Patient has good family support and they are hopeful to take her home tomorrow. <Michael Pena - Last Filed: 10/01/18 14:23> (2) Altered mental status Qualifiers: Altered mental status type: unspecified Qualified Code(s): R41.82 - Altered mental status, unspecified (6) Dementia Qualifiers: Dementia type: Alzheimer's disease (8) Diabetes mellitus Qualifiers: Diabetes mellitus type: type 2 <Kemar Braxton G - Last Filed: 10/01/18 14:47> (1) Dementia Qualifiers: Dementia type: Alzheimer's disease
--- NOTE | 2018-10-01 13:26 | Physician Discharge Referral ---
Home Health/Hosp Referral Info Transfer to: Home Health Provider in Charge Post Discharge: PCP - Diagnosis (1) Dementia Priority: Primary Status: Chronic - Respiratory Orders Smoking Cessation: Smoking cessation has been advised. For more information, call the [place] Tobacco Quit Line at 7-010-ILUO-NOW. - Services Needed Following services are medically necessary services: Nursing, Home Health Aide, Physical Therapy, Occupational Therapy - Transfer Medications Prescriptions: cephALEXin [Keflex] 500 mg PO BID #10 capsule Home Medications: Alendronate Sodium [Fosamax] 35 mg PO QMONTH 09/29/18 [History] Aspirin [Lo-Dose Aspirin EC] 81 mg PO DAILY 09/29/18 [History] Atenolol [Tenormin] 50 mg PO BID 09/29/18 [History] Calcium Carbonate/Vitamin D3 [Calcium 500 + Vit D Caplet] 1 each PO BID 09/29/18 [History] Colesevelam HCl [Welchol] 1,875 mg PO BID 09/29/18 [History] Cyanocobalamin (Vitamin B-12) [Vitamin B-12] 1,000 mcg SL MOWEFR 09/29/18 [History] Docusate [Colace] 100 mg PO BID PRN 09/29/18 [History] Ergocalciferol (VITAMIN D2) [Vitamin D2] 50,000 unit PO GRACE 09/29/18 [History] Furosemide [Lasix] 20 mg PO AD 09/29/18 [History] HYDROcodone/Acet 7.5/325 mg [[place] 7.5-325 mg] 1 tab PO Q6H PRN 09/29/18 [History] Insulin ASPART [Novolog Flexpen] 0 units SQ TID 09/29/18 [History] Insulin Glargine,Hum.rec.anlog [Lantus Solostar] 42 unit SQ DAILY 09/29/18 [History] Losartan Potassium [Cozaar] 50 mg PO DAILY 09/29/18 [History] Magnesium Oxide [Magnesium] 400 mg PO DAILY 09/29/18 [History] Memantine [Namenda] 5 mg PO BID 09/29/18 [History] Multivit-Min/Iron Fum/Folic AC [Rdrra-Lwwhnfk-Uqfsgxvs Tablet] 1 each PO DAILY 09/29/18 [History] [place]-3/Dha/Epa/Fish Oil [Fish Oil 1,000 mg Softgel] 1 each PO BID 09/29/18 [History] Pregabalin [Lyrica] 100 mg PO BID 09/29/18 [History] Quetiapine Fumarate [Seroquel] 25 mg PO BID PRN 09/29/18 [History] Ropinirole HCl [Requip] 3 mg PO HS 09/29/18 [History] cephALEXin [Keflex] 500 mg PO BID #10 capsule 10/01/18 [Rx] Allergies/Adverse Reactions: Allergy/AdvReac Type Severity Reaction Status Date / Time pravastatin Allergy Anaphylaxis Verified 06/06/15 13:59 atorvastatin AdvReac Muscle Pain Verified 06/06/15 13:59 Certification: Further, I certify that my clinical findings support that this patient is homebound (i.e. absences from home require considerable and taxing effort and are for medical reasons or jew services or infrequently or short duration when for other reasons) because: Homebound Reason: Altered mental status requiring supervision when leaving home Attestation: My signature below is to certify that this patient is under my care and that I, or nurse practitioner, or a physician's preschool teacher's assistant working with me, has a [id number] encounter with this patient.
[2018-10-01] MEDS: cephALEXin 500 MG CAPSULE PO SCH (20:23)
[2018-10-01] MEDS ORDERED: Insulin LISPRO 300 UNITS/3 ML VIAL SQ SCH (21:00)
[2018-10-01] MEDS ORDERED: cephALEXin 250 MG CAPSULE PO SCH (21:00)
[2018-10-01] MEDS ORDERED: Hydrocortisone Rectal 2.5% CRM 28 GM TUBE RC PRN (22:35)
[2018-10-02] MEDS: *HR* HYDROcodone/Acet 7.5/325 mg TABLET PO PRN (01:12)
[2018-10-02] MEDS ORDERED: cephALEXin 500 MG CAPSULE PO SCH (06:00)
[2018-10-02] MEDS: *HR* Heparin 5,000 UNIT/ML VIAL SQ SCH (06:08)
--- NOTE | 2018-10-02 07:13 | Discharge Summary ---
- NOTES TO OUTPATIENT PROVIDER Notes to Outpatient Provider: UTI on Keflex Date of Encounter: 10/02/18 Time of Encounter: 07:08 - Discharge Diagnosis (1) UTI (urinary tract infection) Priority: Primary Status: Acute Qualifiers: Urinary tract infection type: acute cystitis Hematuria presence: with hematuria Qualified Code(s): N30.01 - Acute cystitis with hematuria Hospital course: Dear Doctors, I recently had the opportunity to care for this patient during their recent hospital stay at [facility] [place]. Iris Munson is an 88 F w hx dementia, HTN, DM2, who presented at time of admission with worsening confusion and unsteady gait and weakness. She has had UTIs in the past, and her UA here was dirty. The patient was hypovolemic from poor PO intake for 2-3 days. Prior to admission, her PCP sent in a Rx for Cipro, which patient took once or twice prior to presentation, and thus resultant UCx here was negative. Patient improved with Rocephin and IV rehydration. She lives with her daughter who has stayed with her here in the hospital during admission (supportive home environment), and will be discharged home with home health/PT. 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 Please contact me with any questions or concerns regarding their hospital stay. Sincerely, Kemar Braxton MD - Discharge Medications Prescriptions: New cephALEXin [Keflex] 500 mg PO BID #10 capsule Continue Memantine [Namenda] 5 mg PO BID HYDROcodone/Acet 7.5/325 mg [[place] 7.5-325 mg] 1 tab PO Q6H PRN PRN Reason: Pain Multivit-Min/Iron Fum/Folic AC [Zbhfg-Drzjpoz-Swbdygmj Tablet] 1 each PO DAILY Magnesium Oxide [Magnesium] 400 mg PO DAILY Pregabalin [Lyrica] 100 mg PO BID Losartan Potassium [Cozaar] 50 mg PO DAILY Alendronate Sodium [Fosamax] 35 mg PO QMONTH Insulin Glargine,Hum.rec.anlog [Lantus Solostar] 42 unit SQ DAILY [place]-3/Dha/Epa/Fish Oil [Fish Oil 1,000 mg Softgel] 1 each PO BID Furosemide [Lasix] 20 mg PO AD Docusate [Colace] 100 mg PO BID PRN PRN Reason: Constipation Calcium Carbonate/Vitamin D3 [Calcium 500 + Vit D Caplet] 1 each PO BID Atenolol [Tenormin] 50 mg PO BID Aspirin [Lo-Dose Aspirin EC] 81 mg PO DAILY Insulin ASPART [Novolog Flexpen] 0 units SQ TID Ergocalciferol (VITAMIN D2) [Vitamin D2] 50,000 unit PO GRACE Cyanocobalamin (Vitamin B-12) [Vitamin B-12] 1,000 mcg SL MOWEFR Quetiapine Fumarate [Seroquel] 25 mg PO BID PRN PRN Reason: Agitation Ropinirole HCl [Requip] 3 mg PO HS Colesevelam HCl [Welchol] 1,875 mg PO BID Home Medications: Alendronate Sodium [Fosamax] 35 mg PO QMONTH 09/29/18 [History] Aspirin [Lo-Dose Aspirin EC] 81 mg PO DAILY 09/29/18 [History] Atenolol [Tenormin] 50 mg PO BID 09/29/18 [History] Calcium Carbonate/Vitamin D3 [Calcium 500 + Vit D Caplet] 1 each PO BID 09/29/18 [History] Colesevelam HCl [Welchol] 1,875 mg PO BID 09/29/18 [History] Cyanocobalamin (Vitamin B-12) [Vitamin B-12] 1,000 mcg SL MOWEFR 09/29/18 [History] Docusate [Colace] 100 mg PO BID PRN 09/29/18 [History] Ergocalciferol (VITAMIN D2) [Vitamin D2] 50,000 unit PO GRACE 09/29/18 [History] Furosemide [Lasix] 20 mg PO AD 09/29/18 [History] HYDROcodone/Acet 7.5/325 mg [[place] 7.5-325 mg] 1 tab PO Q6H PRN 09/29/18 [History] Insulin ASPART [Novolog Flexpen] 0 units SQ TID 09/29/18 [History] Insulin Glargine,Hum.rec.anlog [Lantus Solostar] 42 unit SQ DAILY 09/29/18 [History] Losartan Potassium [Cozaar] 50 mg PO DAILY 09/29/18 [History] Magnesium Oxide [Magnesium] 400 mg PO DAILY 09/29/18 [History] Memantine [Namenda] 5 mg PO BID 09/29/18 [History] Multivit-Min/Iron Fum/Folic AC [Epwpw-Qmwiahc-Rpsmjlsg Tablet] 1 each PO DAILY 09/29/18 [History] [place]-3/Dha/Epa/Fish Oil [Fish Oil 1,000 mg Softgel] 1 each PO BID 09/29/18 [History] Pregabalin [Lyrica] 100 mg PO BID 09/29/18 [History] Quetiapine Fumarate [Seroquel] 25 mg PO BID PRN 09/29/18 [History] Ropinirole HCl [Requip] 3 mg PO HS 09/29/18 [History] cephALEXin [Keflex] 500 mg PO BID #10 capsule 10/01/18 [Rx] Allergies/Adverse Reactions: Allergy/AdvReac Type Severity Reaction Status Date / Time pravastatin Allergy Anaphylaxis Verified 06/06/15 13:59 atorvastatin AdvReac Muscle Pain Verified 06/06/15 13:59 Date of admission: 10/01/18 13:51 Primary care physician: Estephania Lopes DO Consults: 09/30/18 10:37 Consult to Nursing Home Manager [CONS] Routine Reason for SW Consult: Patient currently has home health 10/01/18 08:38 Consult to Occupational Therapy [CONS] Routine Comment: Evaluate, develop and implement POC Reason for Consult: d/c planning Does patient have active BEDREST order?: No Is patient medically & hemodynamically stable?: Yes Consult to Physical Therapy [CONS] Routine Comment: Evaluate, develop and implement POC Reason for Consult: d/c planning Does patient have active BEDREST order?: No Is patient medically & hemodynamically stable?: Yes - Constitutional Vitals: Temp Pulse Resp BP Pulse Ox 98.5 F 70 16 190/75 96 10/02/18 06:42 10/02/18 06:42 10/02/18 06:42 10/02/18 06:42 10/02/18 06:42 General appearance: Present: cooperative, A&O X 3, pleasant, no acute distress, answers questions appropriately Exam: General: NAD, good eye contact, well appearing, elderly Thoracic: Normal breath sounds b/l, no wheezing or crackles Cardio: Normal S1 and S2, regular rate and rhythm, no murmurs Abdomen: Soft, nontender Extremities: Warm, well perfused. DP pulses 2+ b/l. Mild pedal edema. Skin: Intact. No rashes, bruises, or ulcers Neuro: Awake, oriented to person and place. Speech fluent. Able to stand independently and walk slowly with slight imbalance - Patient Status Disposition: Home Health Service Condition: Fair - Discharge Instructions Instructions: Acute Kidney Injury (DC), Urinary Tract Infection in Women (DC) Follow Up With: Estephania Lopes DO [Primary Care Provider] -
[2018-10-02 07:33] VITALS: BP 170/70
[2018-10-02] MEDS: Aspirin Enteric Coated 81 MG Tablet PO SCH (08:10)
[2018-10-02] MEDS: cephALEXin 500 MG CAPSULE PO SCH (08:10)
[2018-10-02] MEDS: Insulin LISPRO 300 UNITS/3 ML VIAL SQ SCH (08:11)
== END 2018-10-02 12:06 | disposition home health service (06) | DRG 689 ==
LOC: 3NENU 15:26 → EMEROOARM 15:26 → SUATTDRO 21:06 → 3NENU 21:31
PROVIDERS: ADMIT Family Medicine; ATTEND Internal Medicine

== ENCOUNTER 2018-12-09 08:25 | Inpatient (IN) ==
--- NOTE | 2018-12-09 08:30 | Emergency Department Note ---
Disposition Clinical Impression: Sepsis, Weakness, Pneumonia, UTI (urinary tract infection) Disposition: Admitted As Inpatient Condition: Fair Referrals: Estephania Lopes DO [Primary Care Provider] - Forms: ED Satisfaction Letter General Adult HPI - General Stated complaint: General weakness Time Seen by Provider: 12/09/18 08:27 - Related Data Home Medications Medication Instructions Recorded Confirmed Alendronate Sodium [Fosamax] 35 mg PO QMONTH 09/29/18 09/29/18 Aspirin [Lo-Dose Aspirin EC] 81 mg PO DAILY 09/29/18 09/29/18 Atenolol [Tenormin] 50 mg PO BID 09/29/18 09/29/18 Calcium Carbonate/Vitamin D3 1 each PO BID 09/29/18 09/29/18 [Calcium 500 + Vit D Caplet] Colesevelam HCl [Welchol] 1,875 mg PO BID 09/29/18 09/29/18 Cyanocobalamin (Vitamin B-12) 1,000 mcg SL MOWEFR 09/29/18 09/29/18 [Vitamin B-12] Docusate [Colace] 100 mg PO BID PRN 09/29/18 09/29/18 Ergocalciferol (VITAMIN D2) 50,000 unit PO GRACE 09/29/18 09/29/18 [Vitamin D2] Furosemide [Lasix] 20 mg PO AD 09/29/18 09/29/18 HYDROcodone/Acet 7.5/325 mg [[place] 1 tab PO Q6H PRN 09/29/18 09/29/18 7.5-325 mg] Insulin ASPART [Novolog Flexpen] 0 units SQ TID 09/29/18 09/29/18 Insulin Glargine,Hum.rec.anlog 42 unit SQ DAILY 09/29/18 09/29/18 [Lantus Solostar] Losartan Potassium [Cozaar] 50 mg PO DAILY 09/29/18 09/29/18 Magnesium Oxide [Magnesium] 400 mg PO DAILY 09/29/18 09/29/18 Memantine [Namenda] 5 mg PO BID 09/29/18 09/29/18 Multivit-Min/Iron Fum/Folic AC 1 each PO DAILY 09/29/18 09/29/18 [Uxdbc-Imimzrc-Evplbrbb Tablet] [place]-3/Dha/Epa/Fish Oil [Fish Oil 1 each PO BID 09/29/18 09/29/18 1,000 mg Softgel] Pregabalin [Lyrica] 100 mg PO BID 09/29/18 09/29/18 Quetiapine Fumarate [Seroquel] 25 mg PO BID PRN 09/29/18 09/29/18 Ropinirole HCl [Requip] 3 mg PO HS 09/29/18 09/29/18 Previous Rx's Medication Instructions Recorded cephALEXin [Keflex] 500 mg PO BID #10 capsule 10/01/18 Allergies Allergy/AdvReac Type Severity Reaction Status Date / Time pravastatin Allergy Anaphylaxis Verified 12/09/18 08:31 atorvastatin AdvReac Muscle Pain Verified 12/09/18 08:31 Past Medical History - Past Medical History Medical history: Reports: dementia, diabetes, hypertension, osteoporosis, renal disease Psychiatric history: Reports: no psych history - Social History Smoking Status: Former smoker Smokeless Tobacco Status: No Alcohol use: Reports: none Drug use: Reports: none Course Vital Signs Temperature 100.4 F H 12/09/18 08:31 Pulse Rate 91 12/09/18 08:31 Respiratory Rate 20 12/09/18 08:31 Blood Pressure 140/53 12/09/18 08:31 O2 Sat by Pulse Oximetry 90 12/09/18 08:31 Temperature 100.4 F H 12/09/18 08:31 Pulse Rate 80 12/09/18 09:47 Respiratory Rate 16 12/09/18 09:47 Blood Pressure 125/46 12/09/18 09:47 O2 Sat by Pulse Oximetry 95 12/09/18 09:47 Oxygen Delivery Oxygen Delivery Nasal Cannula Medical Decision Making - Lab Data Result diagrams: 12/09/18 08:30 12/09/18 08:30 Lab Results 12/09/18 12/09/18 12/09/18 Range/Units 08:30 08:30 08:30 WBC 13.7 H D (4.3-11.1) K/mcL RBC 4.24 (3.82-4.97) M/mcL Hgb 13.0 (11.5-15.4) g/dL Hct 40.1 (35.3-44.9) % MCV 94.6 (83.0-100.0) fL MCH 30.7 (28.0-33.3) pg MCHC 32.4 (31.6-35.5) g/dL RDW 13.9 (11.5-14.5) % Plt Count 193 (140-400) K/mcL MPV 10.5 (9.4-12.4) fL Immature Gran % 0.4 (0-4) % Seg Neutrophils % 85.7 % Lymphocytes % 8.9 % Monocytes % 4.1 % Eosinophils % 0.5 % Basophils % 0.4 % Neutrophils # 11.7 H (1.6-8.9) K/mcL Lymphocytes # 1.2 (0.6-4.6) K/mcL Monocytes # 0.6 (0.0-1.3) K/mcL Eosinophils # 0.1 (0.0-0.6) K/mcL Basophils # 0.1 (0.0-0.2) K/mcL PT 10.6 (9.4-12.1) Seconds INR 0.9 Sodium 142 (136-145) mEq/L Potassium 4.4 (3.5-5.1) mEq/L Chloride 109 H (98-107) mEq/L Carbon Dioxide 24 (23-29) mEq/L BUN 29 H (8-23) mg/dL Creatinine 1.03 (0.60-1.20) mg/dL Est GFR ( Amer) > 60 (> 60) Est GFR (Non-Af Amer) 50 L (> 60) BUN/Creatinine Ratio 28 H (6-26) Glucose 179 H (70-105) mg/dL Calculated Osmolality 304 H (280-300) Lactic Acid (0.5-2.2) mmol/L Calcium 9.3 (8.6-10.3) mg/dL Phosphorus 3.2 (2.7-4.5) mg/dL Magnesium 1.6 (1.6-2.6) mg/dL Total Bilirubin 0.5 (0.3-1.0) mg/dL Direct Bilirubin 0.1 (0.0-0.2) mg/dL Indirect Bilirubin 0.4 (0.0-1.2) mg/dL AST 15 (13-39) Units/L ALT 16 (7-52) Units/L Alkaline Phosphatase 50 (34-104) Units/L Troponin I < 0.03 (< 0.04) ng/mL Serum Total Protein 6.4 (6.4-8.9) g/dL Albumin 3.7 (3.5-5.7) g/dL Globulin 2.7 (2.4-3.5) g/dL Albumin/Globulin Ratio 1.4 (1.1-2.2) Lipase 12 (11-82) Units/L Urine Color (Yellow) Urine Clarity (Clear) Urine pH (5.0-8.0) pH Units Ur Specific [place] (1.010-1.025) Urine Protein (Neg-Trace) mg/dL Urine Glucose (UA) (Normal) mg/dL Urine Ketones (Negative) mg/dL Urine Blood (Negative) Urine Nitrite (Negative) Urine Bilirubin (Negative) Urine Urobilinogen (Normal) mg/dL Ur Leukocyte Esterase (Negative) Urine Microscopic RBC (0-3) per hpf Urine Microscopic WBC (0-3) per hpf Ur Squamous Epith Cells (None-Few) per lpf Urine Bacteria (None-Few) per hpf Hyaline Casts (None-Few) per lpf Ur Culture Indicated? (NO) 12/09/18 12/09/18 Range/Units 08:30 08:40 WBC (4.3-11.1) K/mcL RBC (3.82-4.97) M/mcL Hgb (11.5-15.4) g/dL Hct (35.3-44.9) % MCV (83.0-100.0) fL MCH (28.0-33.3) pg MCHC (31.6-35.5) g/dL RDW (11.5-14.5) % Plt Count (140-400) K/mcL MPV (9.4-12.4) fL Immature Gran % (0-4) % Seg Neutrophils % % Lymphocytes % % Monocytes % % Eosinophils % % Basophils % % Neutrophils # (1.6-8.9) K/mcL Lymphocytes # (0.6-4.6) K/mcL Monocytes # (0.0-1.3) K/mcL Eosinophils # (0.0-0.6) K/mcL Basophils # (0.0-0.2) K/mcL PT (9.4-12.1) Seconds INR Sodium (136-145) mEq/L Potassium (3.5-5.1) mEq/L Chloride (98-107) mEq/L Carbon Dioxide (23-29) mEq/L BUN (8-23) mg/dL Creatinine (0.60-1.20) mg/dL Est GFR ( Amer) (> 60) Est GFR (Non-Af Amer) (> 60) BUN/Creatinine Ratio (6-26) Glucose (70-105) mg/dL Calculated Osmolality (280-300) Lactic Acid 1.9 (0.5-2.2) mmol/L Calcium (8.6-10.3) mg/dL Phosphorus (2.7-4.5) mg/dL Magnesium (1.6-2.6) mg/dL Total Bilirubin (0.3-1.0) mg/dL Direct Bilirubin (0.0-0.2) mg/dL Indirect Bilirubin (0.0-1.2) mg/dL AST (13-39) Units/L ALT (7-52) Units/L Alkaline Phosphatase (34-104) Units/L Troponin I (< 0.04) ng/mL Serum Total Protein (6.4-8.9) g/dL Albumin (3.5-5.7) g/dL Globulin (2.4-3.5) g/dL Albumin/Globulin Ratio (1.1-2.2) Lipase (11-82) Units/L Urine Color Yellow (Yellow) Urine Clarity Cloudy A (Clear) Urine pH 5.0 (5.0-8.0) pH Units Ur Specific [place] 1.021 (1.010-1.025) Urine Protein 100 H (Neg-Trace) mg/dL Urine Glucose (UA) Normal (Normal) mg/dL Urine Ketones Negative (Negative) mg/dL Urine Blood Negative (Negative) Urine Nitrite Positive A (Negative) Urine Bilirubin Negative (Negative) Urine Urobilinogen Normal (Normal) mg/dL Ur Leukocyte Esterase Moderate H (Negative) Urine Microscopic RBC 0-3 (0-3) per hpf Urine Microscopic WBC 30-50 H (0-3) per hpf Ur Squamous Epith Cells Few (None-Few) per lpf Urine Bacteria Many H (None-Few) per hpf Hyaline Casts None Seen (None-Few) per lpf Ur Culture Indicated? YES A (NO) Critical Care Time Critical Care Time: Yes Total Critical Care Time: 30 Attestation: The high probability of a clinically significant, sudden or life threatening deterioration of the [] system(s) required my full and direct attention, intervention and personal management. The aggregate critical care time was [] minutes. This time is in addition to time spent performing reported procedures but includes the following: [] Data Review and interpretation [] Patient assessment and monitoring of vital signs [] Documentation [] Medication orders and managementn Attestation Statement - Attestation Attestation: I reviewed the residents documentation and agree with the residents assessment and plan of care. I have personally had face to face time with the patient. (Brief History, Brief Exam, and MDM) I personally supervised and was present for the delong/critical portions of the following procedures completed by the resident: (add procedures performed here). [id number] time provided Patient arrives home by EMS. Family is concerned about generalized weakness. Patient appears in no acute distress upon arrival. I attest to supervising the resident physician's interpretation of the ECG 10:00: Patient meets sepsis criteria due to Temp, WBC, CXR.
[2018-12-09] MEDS ORDERED: 0.9 % Sodium Chloride 1,000 ML IVC ONE (08:35)
--- NOTE | 2018-12-09 08:40 | Emergency Department Note ---
Disposition Clinical Impression: Weakness Sepsis Qualifiers: Sepsis type: sepsis due to unspecified organism Qualified Code(s): A41.9 - Sepsis, unspecified organism Pneumonia Qualifiers: Pneumonia type: due to unspecified organism Laterality: unspecified laterality Lung location: unspecified part of lung Qualified Code(s): J18.9 - Pneumonia, unspecified organism UTI (urinary tract infection) Qualifiers: Urinary tract infection type: site unspecified Hematuria presence: without hematuria Qualified Code(s): N39.0 - Urinary tract infection, site not specified Disposition: Admitted As Inpatient Condition: Fair Referrals: Estephania Lopes DO [Primary Care Provider] - Forms: ED Satisfaction Letter Time of Disposition: 09:43 General Adult HPI - General Chief complaint: ED Altered Mental Status Stated complaint: General weakness Time Seen by Provider: 12/09/18 08:27 Source: family, EMS Mode of arrival: ambulatory Limitations: altered mental status Nursing Notes Reviewed: Yes Vital Signs Reviewed: Yes - History of Present Illness HPI Narrative: 88-year-old female history of dementia, hypertension, diabetes presents for evaluation of generalized weakness in the setting of altered mental status. Much of the history provided via EMS as well as the patient's daughter at bedside. States the patient become more altered in the past 24 hours. States that they obtained a urine culture in the past week. States that the patient has been having these tremors as started last night. Denies any recent trauma or falls. States the patient was coughing last night. Denies any chest pain nausea vomiting or abdominal pain. Denies any recent changes in medications. Pain Scale: 5 - Related Data Home Medications Medication Instructions Recorded Confirmed Alendronate Sodium [Fosamax] 35 mg PO QMONTH 09/29/18 09/29/18 Aspirin [Lo-Dose Aspirin EC] 81 mg PO DAILY 09/29/18 09/29/18 Atenolol [Tenormin] 50 mg PO BID 09/29/18 09/29/18 Calcium Carbonate/Vitamin D3 1 each PO BID 09/29/18 09/29/18 [Calcium 500 + Vit D Caplet] Colesevelam HCl [Welchol] 1,875 mg PO BID 09/29/18 09/29/18 Cyanocobalamin (Vitamin B-12) 1,000 mcg SL MOWEFR 09/29/18 09/29/18 [Vitamin B-12] Docusate [Colace] 100 mg PO BID PRN 09/29/18 09/29/18 Ergocalciferol (VITAMIN D2) 50,000 unit PO GRACE 09/29/18 09/29/18 [Vitamin D2] Furosemide [Lasix] 20 mg PO AD 09/29/18 09/29/18 HYDROcodone/Acet 7.5/325 mg [[place] 1 tab PO Q6H PRN 09/29/18 09/29/18 7.5-325 mg] Insulin ASPART [Novolog Flexpen] 0 units SQ TID 09/29/18 09/29/18 Insulin Glargine,Hum.rec.anlog 42 unit SQ DAILY 09/29/18 09/29/18 [Lantus Solostar] Losartan Potassium [Cozaar] 50 mg PO DAILY 09/29/18 09/29/18 Magnesium Oxide [Magnesium] 400 mg PO DAILY 09/29/18 09/29/18 Memantine [Namenda] 5 mg PO BID 09/29/18 09/29/18 Multivit-Min/Iron Fum/Folic AC 1 each PO DAILY 09/29/18 09/29/18 [Dzobj-Fkghnht-Pengtyas Tablet] [place]-3/Dha/Epa/Fish Oil [Fish Oil 1 each PO BID 09/29/18 09/29/18 1,000 mg Softgel] Pregabalin [Lyrica] 100 mg PO BID 09/29/18 09/29/18 Quetiapine Fumarate [Seroquel] 25 mg PO BID PRN 09/29/18 09/29/18 Ropinirole HCl [Requip] 3 mg PO HS 09/29/18 09/29/18 Allergies Allergy/AdvReac Type Severity Reaction Status Date / Time pravastatin Allergy Anaphylaxis Verified 12/09/18 08:31 atorvastatin AdvReac Muscle Pain Verified 12/09/18 08:31 All systems ED: reviewed and negative except as stated. Constitutional: Reports: fever Cardiovascular: Denies: chest pain Respiratory: Reports: cough. Denies: dyspnea Gastrointestinal: Denies: abdominal pain, nausea, vomiting Past Medical History - Past Medical History Source: patient Medical history: Reports: dementia, diabetes, hypertension, osteoporosis, renal disease Psychiatric history: Reports: no psych history - Social History Smoking Status: Former smoker Smokeless Tobacco Status: No Alcohol use: Reports: none Drug use: Reports: none Physical Exam - General Limitations: altered mental status General appearance: alert, in no apparent distress - Head Head exam: atraumatic, normocephalic, normal inspection - Eye Eye exam: Present: normal appearance, PERRL, EOMI - ENT ENT exam: normal exam - Neck Neck exam: Present: normal inspection - Chest Chest inspection: Present: normal inspection, symmetric chest wall rise - Respiratory Respiratory exam: Present: other (Poor inspiratory effort). Absent: respiratory distress, prolonged expiratory phase - Cardiovascular Cardiovascular exam: Present: regular rate, normal rhythm. Absent: normal heart sounds - Abdominal Exam Abdominal exam: Present: soft, Non-Tender. Absent: guarding, rebound - Extremities Exam Extremities exam: Present: normal inspection. Absent: pedal edema - Back Exam Back exam: Present: normal inspection. Absent: tenderness - Neurological Exam Neurological exam: Present: alert, CN II-XII intact. Absent: oriented X3 - Expanded Neurological Exam Patient oriented to: Present: person Cranial nerves: EOM function (II, III, IV, ): Normal, facial sensation (V): Normal, facial palsy (VII): Normal, spinal accessory function (XI): Normal, tongue deviation (XII): Normal Motor strength - LUE: 5/5 Motor strength - RUE: 5/5 Motor strength - LLE: 5/5 Motor strength - RLE: 5/5 Coma Scale Eye Opening: Spontaneous Coma Scale Motor Response: Obeys Commands Coma Scale Verbal Response: Confused Coma Scale Total: 14 - Skin Skin exam: Present: warm, dry, intact, normal color Course Course Narrative: Patient presents with abnormal vitals. Patient does appear to meet sepsis. Patient will get broad workup including looking at focus in the lungs as well as in the urine. Patient's prior urine cultures grew pansensitive Escherichia coli. Patient also get a head CT given the evidence of jerking on exam however believe this less likely be secondary to any central etiology. Disposition admission. - Reevaluation(s) Reevaluation #1: Patient's prior records reviewed show evidence of pansensitive Escherichia coli. Patient was recently hospitalized for weakness was in the past couple months. Concerns of patient's cough, oxygen requirement and fever for clinical pneumonia. Patient will be covered for healthcare associated pneumonia. Time: 09:05 Reevaluation #2: Patient's lactate came back normal. Patient does not meet the 30 mL/kg requirement. Patient did receive a liter of fluids as well as placed on maintenance. Time: 09:34 Reevaluation #3: Plan of care was discussed with the family. All questions were answered. Time: 09:40 Vital Signs Temperature 100.4 F H 12/09/18 08:31 Pulse Rate 91 12/09/18 08:31 Respiratory Rate 20 12/09/18 08:31 Blood Pressure 140/53 12/09/18 08:31 O2 Sat by Pulse Oximetry 90 12/09/18 08:31 Temperature 100.4 F H 12/09/18 08:31 Pulse Rate 76 12/09/18 10:06 Respiratory Rate 20 12/09/18 10:06 Blood Pressure 115/44 12/09/18 10:06 O2 Sat by Pulse Oximetry 95 12/09/18 10:06 Oxygen Delivery Oxygen Delivery Nasal Cannula Medical Decision Making - MDM Narrative Medical decision making narrative: Patient presents for concerns of generalized weakness. On exam the patient is a GCS 14. Patient's confused. Patient does have abnormal vitals concerning for likely sepsis. Patient does have a nausea requirement with a cough and was treated for healthcare associated pneumonia with Vanco and Zosyn. Patient source likely in the lungs. Patient was started on broad-spectrum antibiotic coverage. Cultures obtained. Patient will be admitted to the hospital service for continued evaluation monitoring. Patient has low suspicion or concern that this is related to any meningitis or encephalitis. Patient's abdominal exam is soft and benign and no need to obtain any imaging. Patient urine also for signs of infection. - Lab Data Lab results reviewed: Yes I reviewed the patient's lab results. Result diagrams: 12/09/18 08:30 12/09/18 08:30 Lab Results 12/09/18 12/09/18 12/09/18 Range/Units 08:30 08:30 08:30 WBC 13.7 H D (4.3-11.1) K/mcL RBC 4.24 (3.82-4.97) M/mcL Hgb 13.0 (11.5-15.4) g/dL Hct 40.1 (35.3-44.9) % MCV 94.6 (83.0-100.0) fL MCH 30.7 (28.0-33.3) pg MCHC 32.4 (31.6-35.5) g/dL RDW 13.9 (11.5-14.5) % Plt Count 193 (140-400) K/mcL MPV 10.5 (9.4-12.4) fL Immature Gran % 0.4 (0-4) % Seg Neutrophils % 85.7 % Lymphocytes % 8.9 % Monocytes % 4.1 % Eosinophils % 0.5 % Basophils % 0.4 % Neutrophils # 11.7 H (1.6-8.9) K/mcL Lymphocytes # 1.2 (0.6-4.6) K/mcL Monocytes # 0.6 (0.0-1.3) K/mcL Eosinophils # 0.1 (0.0-0.6) K/mcL Basophils # 0.1 (0.0-0.2) K/mcL PT 10.6 (9.4-12.1) Seconds INR 0.9 Sodium 142 (136-145) mEq/L Potassium 4.4 (3.5-5.1) mEq/L Chloride 109 H (98-107) mEq/L Carbon Dioxide 24 (23-29) mEq/L BUN 29 H (8-23) mg/dL Creatinine 1.03 (0.60-1.20) mg/dL Est GFR ( Amer) > 60 (> 60) Est GFR (Non-Af Amer) 50 L (> 60) BUN/Creatinine Ratio 28 H (6-26) Glucose 179 H (70-105) mg/dL Calculated Osmolality 304 H (280-300) Lactic Acid (0.5-2.2) mmol/L Calcium 9.3 (8.6-10.3) mg/dL Phosphorus 3.2 (2.7-4.5) mg/dL Magnesium 1.6 (1.6-2.6) mg/dL Total Bilirubin 0.5 (0.3-1.0) mg/dL Direct Bilirubin 0.1 (0.0-0.2) mg/dL Indirect Bilirubin 0.4 (0.0-1.2) mg/dL AST 15 (13-39) Units/L ALT 16 (7-52) Units/L Alkaline Phosphatase 50 (34-104) Units/L Troponin I < 0.03 (< 0.04) ng/mL Serum Total Protein 6.4 (6.4-8.9) g/dL Albumin 3.7 (3.5-5.7) g/dL Globulin 2.7 (2.4-3.5) g/dL Albumin/Globulin Ratio 1.4 (1.1-2.2) Lipase 12 (11-82) Units/L Urine Color (Yellow) Urine Clarity (Clear) Urine pH (5.0-8.0) pH Units Ur Specific [place] (1.010-1.025) Urine Protein (Neg-Trace) mg/dL Urine Glucose (UA) (Normal) mg/dL Urine Ketones (Negative) mg/dL Urine Blood (Negative) Urine Nitrite (Negative) Urine Bilirubin (Negative) Urine Urobilinogen (Normal) mg/dL Ur Leukocyte Esterase (Negative) Urine Microscopic RBC (0-3) per hpf Urine Microscopic WBC (0-3) per hpf Ur Squamous Epith Cells (None-Few) per lpf Urine Bacteria (None-Few) per hpf Hyaline Casts (None-Few) per lpf Ur Culture Indicated? (NO) 12/09/18 12/09/18 Range/Units 08:30 08:40 WBC (4.3-11.1) K/mcL RBC (3.82-4.97) M/mcL Hgb (11.5-15.4) g/dL Hct (35.3-44.9) % MCV (83.0-100.0) fL MCH (28.0-33.3) pg MCHC (31.6-35.5) g/dL RDW (11.5-14.5) % Plt Count (140-400) K/mcL MPV (9.4-12.4) fL Immature Gran % (0-4) % Seg Neutrophils % % Lymphocytes % % Monocytes % % Eosinophils % % Basophils % % Neutrophils # (1.6-8.9) K/mcL Lymphocytes # (0.6-4.6) K/mcL Monocytes # (0.0-1.3) K/mcL Eosinophils # (0.0-0.6) K/mcL Basophils # (0.0-0.2) K/mcL PT (9.4-12.1) Seconds INR Sodium (136-145) mEq/L Potassium (3.5-5.1) mEq/L Chloride (98-107) mEq/L Carbon Dioxide (23-29) mEq/L BUN (8-23) mg/dL Creatinine (0.60-1.20) mg/dL Est GFR ( Amer) (> 60) Est GFR (Non-Af Amer) (> 60) BUN/Creatinine Ratio (6-26) Glucose (70-105) mg/dL Calculated Osmolality (280-300) Lactic Acid 1.9 (0.5-2.2) mmol/L Calcium (8.6-10.3) mg/dL Phosphorus (2.7-4.5) mg/dL Magnesium (1.6-2.6) mg/dL Total Bilirubin (0.3-1.0) mg/dL Direct Bilirubin (0.0-0.2) mg/dL Indirect Bilirubin (0.0-1.2) mg/dL AST (13-39) Units/L ALT (7-52) Units/L Alkaline Phosphatase (34-104) Units/L Troponin I (< 0.04) ng/mL Serum Total Protein (6.4-8.9) g/dL Albumin (3.5-5.7) g/dL Globulin (2.4-3.5) g/dL Albumin/Globulin Ratio (1.1-2.2) Lipase (11-82) Units/L Urine Color Yellow (Yellow) Urine Clarity Cloudy A (Clear) Urine pH 5.0 (5.0-8.0) pH Units Ur Specific [place] 1.021 (1.010-1.025) Urine Protein 100 H (Neg-Trace) mg/dL Urine Glucose (UA) Normal (Normal) mg/dL Urine Ketones Negative (Negative) mg/dL Urine Blood Negative (Negative) Urine Nitrite Positive A (Negative) Urine Bilirubin Negative (Negative) Urine Urobilinogen Normal (Normal) mg/dL Ur Leukocyte Esterase Moderate H (Negative) Urine Microscopic RBC 0-3 (0-3) per hpf Urine Microscopic WBC 30-50 H (0-3) per hpf Ur Squamous Epith Cells Few (None-Few) per lpf Urine Bacteria Many H (None-Few) per hpf Hyaline Casts None Seen (None-Few) per lpf Ur Culture Indicated? YES A (NO) - Radiology Data Radiology results reviewed: Yes I reviewed the patient's radiology results. Vital Signs Temperature 100.4 F H 12/09/18 08:31 Pulse Rate 91 12/09/18 08:31 Respiratory Rate 20 12/09/18 08:31 Blood Pressure 140/53 12/09/18 08:31 O2 Sat by Pulse Oximetry 90 12/09/18 08:31 Temperature 100.4 F H 12/09/18 08:31 Pulse Rate 91 12/09/18 08:31 Respiratory Rate 20 12/09/18 08:31 Blood Pressure 140/53 12/09/18 08:31 O2 Sat by Pulse Oximetry 93 12/09/18 08:35 Oxygen Delivery Oxygen Delivery Room Air Chest X-Ray 12/09/18 08:36 IMPRESSION: 1. Cardiomegaly with vascular congestion. 2. Patchy density involving the right upper and left lower lobes which could represent developing pneumonia. Follow-up to resolution is recommended. D/ / Edmund Fraser MD / Edmund Fraser MD Interpreting Provider: Edmund Fraser MD Head CT 12/09/18 08:36 IMPRESSION: 1. Motion compromised study but no acute intracranial abnormality. I would suggest follow-up. 2. Diffuse cerebral atrophy with chronic small vessel ischemic disease. D/ / Edmund Fraser MD / Edmund Fraser MD Interpreting Provider: Edmund Fraser MD - EKG Data EKG #1 EKG attestation: Yes I reviewed and interpreted this EKG. EKG shows normal: sinus rhythm Rate: normal Rhythm: NSR [place]/QRS: left axis deviation Interpretation: no acute changes, nonspecific ST-T wave changes S.Silverio - Fany Situation: Demographics Background: Presenting Complaint Assessment: Vital Signs, Course and respsone to treatment, Patient/Family Expectation Recommendation: Barrier(s) to disposition, Recommendation based on pending studies, treatments, or consults S.Silverio Report Given to: Hospitalist Fany Repor Time: 10:08
[2018-12-09 08:58] LABS: Basophils # 0.1 K/mcL (0.0-0.2); Basophils % 0.4 %; Eosinophils # 0.1 K/mcL (0.0-0.6); Eosinophils % 0.5 %; Hematocrit 40.1 % (35.3-44.9); Immature Granulocytes % 0.4 % (0-4); Lymphocytes # 1.2 K/mcL (0.6-4.6); Lymphocytes % 8.9 %; Mean Corpuscular HGB Conc 32.4 g/dL (31.6-35.5); Mean Corpuscular Hemoglobin 30.7 pg (28.0-33.3); Mean Corpuscular Volume 94.6 fL (83.0-100.0); Mean Platelet Volume 10.5 fL (9.4-12.4); Monocytes # 0.6 K/mcL (0.0-1.3); Monocytes % 4.1 %; Neutrophils # 11.7 K/mcL (1.6-8.9); Platelet Count 193 K/mcL (140-400); Red Blood Count 4.24 M/mcL (3.82-4.97); Red Cell Distribution Width 13.9 % (11.5-14.5); Segmented Neutrophils % 85.7 %
[2018-12-09] MEDS ORDERED: Piperacillin/Tazobactam 3.375 GM in Water for inj. (sterile) 20 ML 20 ML IVP ONE (09:04)
[2018-12-09 09:05] LABS: INR 0.9; Prothrombin Time 10.6 Seconds (9.4-12.1)
[2018-12-09] MEDS ORDERED: 0.9 % Sodium Chloride 1,000 ML IVC SCH ×2 (09:15→09:46)
[2018-12-09 09:19] LABS: Alanine Aminotransferase 16 Units/L (7-52); Albumin 3.7 g/dL (3.5-5.7); Albumin/Globulin Ratio 1.4 (1.1-2.2); Alkaline Phosphatase 50 Units/L (34-104); Aspartate Amino Transferase 15 Units/L (13-39); BUN/Creatinine Ratio 28 (6-26); Bilirubin,Direct 0.1 mg/dL (0.0-0.2); Bilirubin,Indirect 0.4 mg/dL (0.0-1.2); Bilirubin,Total 0.5 mg/dL (0.3-1.0); Blood Urea Nitrogen 29 mg/dL (8-23); Calcium 9.3 mg/dL (8.6-10.3); Carbon Dioxide 24 mEq/L (23-29); Chloride 109 mEq/L (98-107); Globulin 2.7 g/dL (2.4-3.5); Glucose 179 mg/dL (70-105); Lipase 12 Units/L (11-82); Magnesium 1.6 mg/dL (1.6-2.6); Osmolality,Calculated 304 (280-300); Phosphorous 3.2 mg/dL (2.7-4.5); Potassium 4.4 mEq/L (3.5-5.1); Sodium 142 mEq/L (136-145); Total Protein 6.4 g/dL (6.4-8.9); Troponin I < 0.03 ng/mL (< 0.04); eGFR For Non-African Americans 50 (> 60)
[2018-12-09 09:33] LABS: Bilirubin,Urine Negative (Negative); Blood,Urine Negative (Negative); Clarity,Urine Cloudy (Clear); Color,Urine Yellow (Yellow); Glucose,Urine (UA) Normal (Normal); Ketones,Urine Negative (Negative); Leukocyte Esterase,Urine Moderate (Negative); Nitrite,Urine Positive (Negative); Protein,Urine 100 mg/dL (Neg-Trace); Specific Gravity,Urine 1.021 (1.010-1.025); Urobilinogen,Urine Normal (Normal)
[2018-12-09 09:36] LABS: Bacteria,Urine Many per hpf (None-Few); Hyaline Casts,Urine None Seen per lpf (None-Few); RBC,Urine 0-3 per hpf (0-3); Squamous Epithelial Cell,Urine Few per lpf (None-Few); WBC,Urine 30-50 per hpf (0-3)
[2018-12-09] MEDS ORDERED: 0.9 % Sodium Chloride 1,000 ML ONE (09:49)
--- NOTE | 2018-12-09 10:16 | Internal Med History&Physical ---
<Tano Jeffers - Last Filed: 12/09/18 11:51> Date of Encounter: 12/09/18 Time of Encounter: 10:13 Internal Medicine - H&P: HPI Chief complaint: AMS Admitted From: Emergency Dept History of present illness: Ms. Munson is a 88 year old female with a past medical history of hypertension, dementia, RLS, and osteoporosis who presented to the ED with her daughter due to altered mental status. Patient lives at home with her daughter who reported patient is confused and has associated fever, rigors, non-productive cough, urinary frequency, urinary urgency, and generalized weakness. Patient has a history of Escherichia coli UTIs in the past with most recent hospitalization on 10/02/18. Family is at bedside and reports she has been sleeping more for the past 2 days. She was evaluated her PCP yesterday and urine culture was obtained at that time. She was not started on an antibiotic therapy. In the ED, patient meet sepsis criteria with leukocytosis WBC 13.7, tachycardia heart rate 91, and PNA/UTI as likley source of infection. Temperature was elevated at 100.4 F and patient was hypoxic at 90% on room air. CXR revealed vascular congestion and patchy density involving the right upper and left lower lobes which could represent developing pneumonia. Patient was placed on 2 L supplemental oxygen, lactic acid was 1.9, blood cultures were obtained, IV fluid bolus, and patient was started on broad-spectrum IV antibiotics. Past Med Surg Social Fam HX - Past Medical History Medical history: dementia, diabetes, hypertension, osteoporosis, renal disease Additional medical history: neuropathy, spinal stenosis, alzheimers, stage 3 kidney dx Psychiatric history: no psych history - Past Surgical History Surgical History: cholecystectomy, orthopedic, other (Left shoulder) Additional surgical history: Tubal ligation - Social History Smoking Status: Former smoker Smokeless Tobacco Status: No Alcohol use: none Drug use: none Current living situation: With Family - Family History Sister Hx Family Cancer: Yes (lung) Hx Family Endocrine Disorder: Yes (DM) Mother Living Status: Hx Family Cardiac Disorders: Yes (CHF) Father Hx Family Cancer: Yes (Throat) Brother Hx Family Endocrine Disorder: Yes (DM) Internal Medicine - H&P: Meds Alendronate Sodium [Fosamax] 35 mg PO QMONTH 09/29/18 [History] Aspirin [Lo-Dose Aspirin EC] 81 mg PO DAILY 09/29/18 [History] Atenolol [Tenormin] 50 mg PO BID 09/29/18 [History] Calcium Carbonate/Vitamin D3 [Calcium 500 + Vit D Caplet] 1 each PO BID 09/29/18 [History] Colesevelam HCl [Welchol] 1,875 mg PO BID 09/29/18 [History] Cyanocobalamin (Vitamin B-12) [Vitamin B-12] 1,000 mcg SL MOWEFR 09/29/18 [History] Docusate [Colace] 100 mg PO BID PRN 09/29/18 [History] Ergocalciferol (VITAMIN D2) [Vitamin D2] 50,000 unit PO GRACE 09/29/18 [History] Furosemide [Lasix] 20 mg PO AD 09/29/18 [History] HYDROcodone/Acet 7.5/325 mg [[place] 7.5-325 mg] 1 tab PO TID PRN 09/29/18 [History] Insulin ASPART [Novolog Flexpen] 4 - 15 units SQ TID 09/29/18 [History] Insulin Glargine,Hum.rec.anlog [Lantus Solostar] 45 unit SQ HS 09/29/18 [Hist ory] Losartan Potassium [Cozaar] 50 mg PO DAILY 09/29/18 [History] Magnesium Oxide [Magnesium] 400 mg PO DAILY 09/29/18 [History] Memantine [Namenda] 5 mg PO BID 09/29/18 [History] Multivit-Min/Iron Fum/Folic AC [Erfug-Vgedgod-Gwumbjbw Tablet] 1 each PO DAILY 09/29/18 [History] [place]-3/Dha/Epa/Fish Oil [Fish Oil 1,000 mg Softgel] 1 each PO BID 09/29/18 [History] Pregabalin [Lyrica] 100 mg PO BID 09/29/18 [History] Quetiapine Fumarate [Seroquel] 25 mg PO BID PRN 09/29/18 [History] Ropinirole HCl [Requip] 3 mg PO HS 09/29/18 [History] Allergy/AdvReac Type Severity Reaction Status Date / Time pravastatin Allergy Anaphylaxis Verified 12/09/18 10:52 atorvastatin AdvReac Muscle Pain Verified 12/09/18 10:52 ROS unobtainable: due to mental status All Systems PM: A 10-system review of systems was performed and is negative for pertinent findings except as documented above in the HPI. - Constitutional Vitals: Temp Pulse Resp BP Pulse Ox 100.4 F H 76 20 115/44 95 12/09/18 08:31 12/09/18 10:06 12/09/18 10:06 12/09/18 10:06 12/09/18 10:06 General appearance: Present: obese. Absent: cooperative, answers questions appropriately Exam: Lethargic, arousable with sternal rub - Head Head exam: Present: atraumatic, normocephalic - Eye Eye exam: Present: EOMI, conjuntiva pink, sclera anicteric - ENT ENT exam: Present: mucous membranes dry, normal oropharynx - Neck Neck exam general surgery: Present: supple, trachea midline. Absent: lymphadenopathy - Respiratory Respiratory exam: Present: decreased breath sounds (Poor respiratory effort). Absent: accessory muscle use, rales, rhonchi, wheezes Additional comments: Wearing 2 L oxygen via nasal cannula - Cardiovascular Cardiovascular exam: Present: RRR, +S1, +S2. Absent: diastolic murmur, gallop, rubs, systolic murmur - GI/Abdominal GI/Abdominal exam: Present: normal bowel sounds, soft, no peritoneal signs. Absent: distended, guarding, tenderness - Extremities Exam Extremities exam: Present: pedal edema (2+), warm, radial pulses palpable and symmetrical. Absent: calf tenderness, cyanotic - Back Exam Back exam: Present: normal inspection. Absent: paraspinal tenderness, tenderness - Neurological Exam Neurological exam: Present: altered, no focal deficits. Absent: facial droop, speech deficit - Psychiatric Psychiatric exam: Present: flat affect. Absent: normal mood - Skin Skin exam: Present: dry, intact. Absent: warm Additional comments: Capillary refill 2 seconds Internal Med - H&P Results - Labs CBC & Chem 7: 12/09/18 08:30 12/09/18 08:30 Labs: Short CBC 12/09/18 Range/Units 08:30 WBC 13.7 H D (4.3-11.1) K/mcL Hgb 13.0 (11.5-15.4) g/dL Hct 40.1 (35.3-44.9) % Plt Count 193 (140-400) K/mcL Neutrophils # 11.7 H (1.6-8.9) K/mcL BMP 12/09/18 08:30 Sodium 142 Potassium 4.4 Chloride 109 H Carbon Dioxide 24 BUN 29 H Creatinine 1.03 Glucose 179 H Calcium 9.3 Cardiac Enzymes 12/09/18 Range/Units 08:30 Troponin I < 0.03 (< 0.04) ng/mL Liver Function 12/09/18 Range/Units 08:30 Total Bilirubin 0.5 (0.3-1.0) mg/dL Direct Bilirubin 0.1 (0.0-0.2) mg/dL AST 15 (13-39) Units/L ALT 16 (7-52) Units/L Alkaline Phosphatase 50 (34-104) Units/L Albumin 3.7 (3.5-5.7) g/dL Urine 12/09/18 Range/Units 08:40 Urine Color Yellow (Yellow) Urine Clarity Cloudy A (Clear) Urine pH 5.0 (5.0-8.0) pH Units Ur Specific [place] 1.021 (1.010-1.025) Urine Protein 100 H (Neg-Trace) mg/dL Urine Glucose (UA) Normal (Normal) mg/dL - Pulse Oximetry Interpretation Digit-Finger O2 Sat by Pulse Oximetry: 95 (On 2 L supplemental oxygen via nasal cannula) Actions taken: none - EKG Data -: EKG Interpreted by Myself EKG shows normal: sinus rhythm (NSR, Heart rate 91, QTC 415, no signs of ischemia) - EKG Data Prior EKG available for review: yes When compared to previous EKG: there is no significant change - Impressions ITS Impressions Chest X-Ray 12/09/18 08:36 IMPRESSION: 1. Cardiomegaly with vascular congestion. 2. Patchy density involving the right upper and left lower lobes which could represent developing pneumonia. Follow-up to resolution is recommended. D/ / Edmund Fraser MD / Edmund Fraser MD Interpreting Provider: Edmund Fraser MD Head CT 12/09/18 08:36 IMPRESSION: 1. Motion compromised study but no acute intracranial abnormality. I would suggest follow-up. 2. Diffuse cerebral atrophy with chronic small vessel ischemic disease. D/ / Edmund Fraser MD / Edmund Fraser MD Interpreting Provider: Edmund Fraser MD - Assessment and Plan (1) Sepsis Current Visit: Yes Status: Acute Assessment and plan: Patient meet sepsis criteria with leukocytosis WBC 13.7, tachycardia heart rate 91, and PNA/UTI as likley source of infection. CXR revealed vascular congestion and patchy density involving the right upper and left lower lobes which could represent developing pneumonia. Lactic acid was 1.9, repeat lactic acid level pending Patient was evaluated her PCP 12/08/18 and urine culture was obtained at that time. Urine culture results pending. Blood cultures were obtained, sepsis IV fluid bolus was given, and patient was started on broad-spectrum IV antibiotics . Qualifiers: Sepsis type: sepsis due to unspecified organism Qualified Code(s): A41.9 - Sepsis, unspecified organism (2) HCAP (healthcare-associated pneumonia) Current Visit: Yes Status: Acute Assessment and plan: Patient with non-productive cough, leukocytosis WBC 13.7, Temperature elevated at 100.4 F, patient hypoxic at 90% on room air, and recent hospitalization on 10/02/18. CXR revealed vascular congestion and patchy density involving the right upper and left lower lobes which could represent developing pneumonia. Patient was placed on 2 L supplemental oxygen, ABG reveals hypoxemia Continue broad-spectrum IV antibiotics (Vanc, Zosyn, Levaquin). Urine Legionella and strep pneumo antigens pending. MRSA nasal screen pending. Sputum culture pending De-escalate antibiotics based on culture results. Continue close monitoring (3) UTI (urinary tract infection) Current Visit: Yes Status: Acute Assessment and plan: Patient with altered renal status was evaluated her PCP yesterday, and urine culture was obtained at that time. Urinalysis revealed cloudy appearance, positive nitrates, moderate leukocyte esterase, 30-50 WBCs, urine culture pending De-escalate antibiotics based on culture results. Qualifiers: Urinary tract infection type: site unspecified Hematuria presence: without hematuria Qualified Code(s): N39.0 - Urinary tract infection, site not specified (4) Weakness Current Visit: Yes Status: Acute Assessment and plan: Patient walks with a walker at baseline PT/OT consulted (5) HTN (hypertension) Current Visit: Yes Status: Chronic Assessment and plan: Blood pressure stable. Continue home meds Qualifiers: Hypertension type: essential hypertension Qualified Code(s): I10 - Essential (primary) hypertension (6) Diabetes mellitus Current Visit: No Status: Chronic Assessment and plan: Hemoglobin A1c 8.2 on 12/04/18 Continue low dose SSI and Accu-Cheks. ADA diet Qualifiers: Diabetes mellitus type: type 2 Diabetes mellitus buttermaker insulin use: with chcf use Diabetes mellitus complication detail: with nephropathy Qualified Code(s): E11.21 - Type 2 diabetes mellitus with diabetic nephropathy; Z79.4 - [facility] (current) use of insulin (7) Dementia Current Visit: Yes Status: Chronic Assessment and plan: Continue home meds Qualifiers: Dementia type: Alzheimer's disease Alzheimer's disease onset: unspecified onset Dementia behavioral disturbance: without behavioral disturbance Qualified Code(s): G30.9 - Alzheimer's disease, unspecified; F02.80 - Dementia in other diseases classified elsewhere without behavioral disturbance (8) DVT prophylaxis Current Visit: No Status: Acute Assessment and plan: Heparin subcutaneous TID (9) GINNY on CPAP Current Visit: Yes Status: Chronic Assessment and plan: Continue CPAP daily at bedtime - Time Spent With Patient Total time spent is greater than 50% in coordination of care (as documented) at patient's floor/unit and/or counseling patient: Sepsis Reassessment Note - Evaluation Sepsis Screen: Severe Sepsis Risk Current Stage of Sepsis: sepsis Possible Source of Sepsis: genitourinary (vs PNA) - Focused Exam Date of Encounter: 12/09/18 Time of Encounter: 11:53 Vital Signs: Vital Signs Temp Pulse Resp BP Pulse Ox 12/09/18 10:23 99.5 F 12/09/18 10:06 76 20 115/44 95 12/09/18 09:47 80 16 125/46 95 12/09/18 08:35 93 12/09/18 08:31 100.4 F H 91 20 140/53 90 Respiratory Exam: Present: decreased breath sounds Cardiovascular Exam: Present: RRR Capillary Refill: < 2 seconds Peripheral Pulse Strength: 3+ normal Peripheral Pulse Location: Radial Skin Exam: pallor <Alexa Manjarrez Celsa - Last Filed: 12/10/18 03:30> Date of Encounter: 12/09/18 Internal Medicine - H&P: HPI History of present illness: Ms. Munson is a 88 year old female All Systems PM: A 10-system review of systems was performed and is negative for pertinent findings except as documented above in the HPI. - Constitutional Vitals: Temp Pulse Resp BP Pulse Ox 98.6 F 77 20 130/57 97 12/10/18 00:33 12/10/18 00:33 12/10/18 00:33 12/10/18 00:33 12/10/18 00:33 Internal Med - H&P Results - Labs CBC & Chem 7: 12/09/18 08:30 12/09/18 08:30 Labs: Short CBC 12/09/18 Range/Units 08:30 WBC 13.7 H D (4.3-11.1) K/mcL Hgb 13.0 (11.5-15.4) g/dL Hct 40.1 (35.3-44.9) % Plt Count 193 (140-400) K/mcL Neutrophils # 11.7 H (1.6-8.9) K/mcL BMP 12/09/18 08:30 Sodium 142 Potassium 4.4 Chloride 109 H Carbon Dioxide 24 BUN 29 H Creatinine 1.03 Glucose 179 H Calcium 9.3 Cardiac Enzymes 12/09/18 Range/Units 08:30 Troponin I < 0.03 (< 0.04) ng/mL Liver Function 12/09/18 Range/Units 08:30 Total Bilirubin 0.5 (0.3-1.0) mg/dL Direct Bilirubin 0.1 (0.0-0.2) mg/dL AST 15 (13-39) Units/L ALT 16 (7-52) Units/L Alkaline Phosphatase 50 (34-104) Units/L Albumin 3.7 (3.5-5.7) g/dL Urine 12/09/18 Range/Units 08:40 Urine Color Yellow (Yellow) Urine Clarity Cloudy A (Clear) Urine pH 5.0 (5.0-8.0) pH Units Ur Specific [place] 1.021 (1.010-1.025) Urine Protein 100 H (Neg-Trace) mg/dL Urine Glucose (UA) Normal (Normal) mg/dL - ABG Interpretation ABG results: 12/09/18 11:46 ABG pH 7.36 ABG pCO2 46 H ABG pO2 57 L ABG HCO3 26 ABG Total CO2 27 H ABG O2 Saturation 88 L ABG Base Excess 0 - Impressions ITS Impressions Chest X-Ray 12/09/18 08:36 IMPRESSION: 1. Cardiomegaly with vascular congestion. 2. Patchy density involving the right upper and left lower lobes which could represent developing pneumonia. Follow-up to resolution is recommended. D/ / Edmund Fraser MD / Edmund Fraser MD Interpreting Provider: Edmund Fraser MD Head CT 12/09/18 08:36 IMPRESSION: 1. Motion compromised study but no acute intracranial abnormality. I would suggest follow-up. 2. Diffuse cerebral atrophy with chronic small vessel ischemic disease. D/ / Edmund Fraser MD / Edmund Fraser MD Interpreting Provider: Edmund Fraser MD - Assessment and Plan (1) DVT prophylaxis Current Visit: No Status: Acute (2) Dementia Current Visit: Yes Status: Chronic Qualifiers: Dementia type: Alzheimer's disease Alzheimer's disease onset: unspecified onset Dementia behavioral disturbance: without behavioral disturbance Qualified Code(s): G30.9 - Alzheimer's disease, unspecified; F02.80 - Dementia in other diseases classified elsewhere without behavioral disturbance (3) Diabetes mellitus Current Visit: No Status: Chronic Qualifiers: Diabetes mellitus type: type 2 Diabetes mellitus chcf insulin use: with chcf use Diabetes mellitus complication detail: with nephropathy Qualified Code(s): E11.21 - Type 2 diabetes mellitus with diabetic nephropathy; Z79.4 - [employer] (current) use of insulin (4) HTN (hypertension) Current Visit: Yes Status: Chronic Qualifiers: Hypertension type: essential hypertension Qualified Code(s): I10 - Essential (primary) hypertension (5) UTI (urinary tract infection) Current Visit: Yes Status: Acute Qualifiers: Urinary tract infection type: site unspecified Hematuria presence: without hematuria Qualified Code(s): N39.0 - Urinary tract infection, site not sp ecified (6) Sepsis Current Visit: Yes Status: Acute Qualifiers: Sepsis type: sepsis due to unspecified organism Qualified Code(s): A41.9 - Sepsis, unspecified organism (7) Weakness Current Visit: Yes Status: Acute (8) HCAP (healthcare-associated pneumonia) Current Visit: Yes Status: Acute (9) GINNY on CPAP Current Visit: Yes Status: Chronic - Time Spent With Patient Total time spent is greater than 50% in coordination of care (as documented) at patient's floor/unit and/or counseling patient: - Attending Attestation I personally and independently interviewed and examined the patient, and I reviewed the patient's medical records. I am in agreement with the assessment and proposed treatment plan. I discussed my findings and recommendation with the patient and answer his questions. The patient's medical records were edited to accurately reflect this encounter. Sepsis Reassessment Note - Focused Exam Vital Signs: Vital Signs Temp Pulse Resp BP Pulse Ox 12/10/18 00:33 98.6 F 77 20 130/57 97 12/09/18 23:24 14 95 12/09/18 22:40 93 12/09/18 21:29 98.0 F 92 18 120/45 93 12/09/18 20:16 14 99 12/09/18 15:45 18 97
[2018-12-09] MEDS ORDERED: Acetaminophen 325 MG TABLET PO PRN (10:26)
[2018-12-09] MEDS ORDERED: Ondansetron 4 MG/2 ML VIAL IVP PRN (10:26)
[2018-12-09] MEDS ORDERED: Naloxone 0.4 MG/ML INJ IVP PRN (10:26)
[2018-12-09] MEDS ORDERED: Vancomycin (wt based) 1,000 MG VIAL IVPB SCH (11:00)
[2018-12-09] MEDS ORDERED: Dextrose Gel 15 GM/37.5 ML TUBE PO PRN ×2 (11:13)
[2018-12-09] MEDS ORDERED: *HR* Dextrose 50 % in Water (Syg) 50 ML SYRINGE IVP PRN (11:13)
[2018-12-09] MEDS ORDERED: D5% in Water 1,000 ML IVC PRN (11:13)
[2018-12-09] MEDS ORDERED: Levofloxacin 750 MG/150 ML 750 MG/150 ML BAG IVPB SCH ×2 (11:15→12:00)
[2018-12-09 11:50] LABS: ABG Base Excess 0 mEq/L (-2 to 3); ABG HCO3 26 mEq/L (21-27); ABG Oxygen Saturation 88 % (95-98); ABG PCO2 46 mmHg (35-45); ABG PH 7.36 pH Units (7.32-7.45); ABG PO2 57 mmHg (85-104); ABG TCO2 27 mEq/L (20-26)
[2018-12-09] MEDS: Insulin LISPRO 300 UNITS/3 ML VIAL SQ SCH ×3 (11:51→21:47)
[2018-12-09] MEDS: *HR* Heparin 5,000 UNIT/ML VIAL SQ SCH ×2 (14:36→21:24)
[2018-12-09] MEDS: Ipratropium/Albuterol Neb 3 ML IH SCH ×4 (14:45→23:24)
[2018-12-09] MEDS: Piperacillin/Tazobactam 3.375 GM in 0.9 % Sodium Chloride Mini Bag 100 ML IVPB SCH (17:29)
[2018-12-09] MEDS: Pregabalin 50 MG CAPSULE PO SCH (21:23)
--- NOTE | 2018-12-09 22:14 | Electrocardiograph Report ---
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
[2018-12-10] MEDS: Piperacillin/Tazobactam 3.375 GM in 0.9 % Sodium Chloride Mini Bag 100 ML IVPB SCH ×3 (00:35→16:41)
[2018-12-10] MEDS: Ipratropium/Albuterol Neb 3 ML IH SCH ×5 (04:13→20:32)
[2018-12-10] MEDS: *HR* Heparin 5,000 UNIT/ML VIAL SQ SCH ×3 (05:04→22:10)
--- NOTE | 2018-12-10 09:08 | Internal Med Progress Note ---
Hospitalist Progress Note - Encounter Date of Encounter: 12/10/18 Time of Encounter: 08:26 - Subjective Interval History: Patient seen and examined this morning at bedside. No acute overnight events. Patient alert and oriented. Denies any significant difficulty breathing. Denies any urinary complaints. Denies any chest pain abdominal pain bowel or bladder complaints. - Exam Vitals: Temp Pulse Resp BP Pulse Ox 97.6 F 69 16 183/69 98 12/10/18 08:05 12/10/18 08:05 12/10/18 08:05 12/10/18 08:05 12/10/18 07:36 Exam: General: In no acute distress. Respiratory exam: no accessory muscle use. Rales on Rt >Lt Cardiovascular exam: RRR, +S1, +S2. no murmur, gallop, rubs. GI/Abdominal exam: Non-tender, Non-distended, normal bowel sounds, soft, no peritoneal signs. Extremities exam: no pedal edema, pulses palpable in b/l lower extremities. no calf tenderness Neurological exam: CN II-XII intact, AO X3, no focal deficits. Skin exam: No skin rash - Assessment and Plan (1) DVT prophylaxis Current Visit: No Status: Acute (2) Dementia Current Visit: Yes Status: Chronic (3) Diabetes mellitus Current Visit: No Status: Chronic (4) HTN (hypertension) Current Visit: Yes Status: Chronic (5) UTI (urinary tract infection) Current Visit: Yes Status: Acute (6) Sepsis Current Visit: Yes Status: Acute (7) Weakness Current Visit: Yes Status: Acute (8) HCAP (healthcare-associated pneumonia) Current Visit: Yes Status: Acute (9) GINNY on CPAP Current Visit: Yes Status: Chronic - Summary of Assessment and Plan Summary of Assessment and Plan: Assessment Pneumonia Abnormal UA HTN dementia GINNY on CPAP Plan - Patient does not appear to have sepsis. - Patient started on broad antibiotics vancomycin and Zosyn and Levaquin. Patient hemodynamically stable. Discontinue Levaquin. MRSA negative on screening. Obtain respiratory infectious panel. Follow blood, sputum and urine culture. Urinary antigen negative. - We will de-escalate antibiotic to zosyn if blood culture remain negative by tomorrow. - Sliding scale insulin with Accu-Cheks - Continue with atenolol Lasix losartan - Continue with home memantine, pregabalin, Seroquel - Patient will continue home health referral on discharge. - Time Spent with Patient Total time spent is greater than 50% in coordination of care (as documented) at patient's floor/unit and/or counseling patient: Internal Medicine: Result - Labs CBC & Chem 7: 12/10/18 08:29 12/10/18 08:29 Labs: Short CBC 12/09/18 Range/Units 08:30 WBC 13.7 H D (4.3-11.1) K/mcL Hgb 13.0 (11.5-15.4) g/dL Hct 40.1 (35.3-44.9) % Plt Count 193 (140-400) K/mcL Neutrophils # 11.7 H (1.6-8.9) K/mcL BMP 12/09/18 08:30 Sodium 142 Potassium 4.4 Chloride 109 H Carbon Dioxide 24 BUN 29 H Creatinine 1.03 Glucose 179 H Calcium 9.3 Cardiac Enzymes 12/09/18 Range/Units 08:30 Troponin I < 0.03 (< 0.04) ng/mL Liver Function 12/09/18 Range/Units 08:30 Total Bilirubin 0.5 (0.3-1.0) mg/dL Direct Bilirubin 0.1 (0.0-0.2) mg/dL AST 15 (13-39) Units/L ALT 16 (7-52) Units/L Alkaline Phosphatase 50 (34-104) Units/L Albumin 3.7 (3.5-5.7) g/dL Urine 12/09/18 Range/Units 08:40 Urine Color Yellow (Yellow) Urine Clarity Cloudy A (Clear) Urine pH 5.0 (5.0-8.0) pH Units Ur Specific [place] 1.021 (1.010-1.025) Urine Protein 100 H (Neg-Trace) mg/dL Urine Glucose (UA) Normal (Normal) mg/dL - ABG Interpretation ABG results: ABG ABG pH 7.36 pH Units (7.32-7.45) 12/09/18 11:46 ABG pCO2 46 mmHg (35-45) H 12/09/18 11:46 ABG pO2 57 mmHg (85-104) L 12/09/18 11:46 ABG O2 Saturation 88 % (95-98) L 12/09/18 11:46 PT/INR, D-dimer PT 10.6 Seconds (9.4-12.1) 12/09/18 08:30 - Impressions Impressions Chest X-Ray 12/09/18 08:36 IMPRESSION: 1. Cardiomegaly with vascular congestion. 2. Patchy density involving the right upper and left lower lobes which could represent developing pneumonia. Follow-up to resolution is recommended. D/ / Edmund Fraser MD / Edmund Fraser MD Interpreting Provider: Edmund Fraser MD Head CT 12/09/18 08:36 IMPRESSION: 1. Motion compromised study but no acute intracranial abnormality. I would suggest follow-up. 2. Diffuse cerebral atrophy with chronic small vessel ischemic disease. D/ / Edmund Fraser MD / Edmund Fraser MD Interpreting Provider: Edmund Fraser MD Consult Discharge Plan - Plan Referrals: Estephania Lopes DO [Primary Care Provider] - (2) Dementia Qualifiers: Dementia type: Alzheimer's disease Alzheimer's disease onset: unspecified onset Dementia behavioral disturbance: without behavioral disturbance Qualified Code(s): G30.9 - Alzheimer's disease, unspecified; F02.80 - Dementia in other diseases classified elsewhere without behavioral disturbance (3) Diabetes mellitus Qualifiers: Diabetes mellitus type: type 2 Diabetes mellitus nursing home insulin use: with buttermaker helper use Diabetes mellitus complication detail: with nephropathy Qualified Code(s): E11.21 - Type 2 diabetes mellitus with diabetic nephropathy; Z79.4 - correction (current) use of insulin (4) HTN (hypertension) Qualifiers: Hypertension type: essential hypertension Qualified Code(s): I10 - Essential (primary) hypertension (5) UTI (urinary tract infection) Qualifiers: Urinary tract infection type: site unspecified Hematuria presence: without hematuria Qualified Code(s): N39.0 - Urinary tract infection, site not specified (6) Sepsis Qualifiers: Sepsis type: sepsis due to unspecified organism Qualified Code(s): A41.9 - Sepsis, unspecified organism
[2018-12-10 09:34] LABS: Basophils % 0.5 %; Eosinophils # 0.2 K/mcL (0.0-0.6); Eosinophils % 2.2 %; Hematocrit 36.7 % (35.3-44.9); Hemoglobin 11.5 g/dL (11.5-15.4); Immature Granulocytes % 0.1 % (0-4); Lymphocytes # 2.2 K/mcL (0.6-4.6); Lymphocytes % 28.4 %; Mean Corpuscular HGB Conc 31.3 g/dL (31.6-35.5); Mean Corpuscular Hemoglobin 30.6 pg (28.0-33.3); Mean Corpuscular Volume 97.6 fL (83.0-100.0); Mean Platelet Volume 10.9 fL (9.4-12.4); Monocytes # 0.6 K/mcL (0.0-1.3); Monocytes % 7.8 %; Neutrophils # 4.6 K/mcL (1.6-8.9); Platelet Count 172 K/mcL (140-400); Red Blood Count 3.76 M/mcL (3.82-4.97); Red Cell Distribution Width 14.2 % (11.5-14.5)
[2018-12-10 09:53] LABS: Calcium 8.9 mg/dL (8.6-10.3)
[2018-12-10] MEDS: Aspirin Enteric Coated 81 MG Tablet PO SCH (10:20)
[2018-12-10] MEDS: Magnesium Oxide 400 MG TABLET PO SCH (10:20)
[2018-12-10] MEDS: Pregabalin 50 MG CAPSULE PO SCH ×2 (10:21→22:08)
[2018-12-10] MEDS: Insulin LISPRO 300 UNITS/3 ML VIAL SQ SCH ×4 (10:30→22:14)
[2018-12-10] MEDS ORDERED: Cyanocobalamin (B-12) 1,000 MCG TABLET PO SCH (11:14)
[2018-12-10] MEDS: Furosemide 20 MG TABLET PO SCH (16:42)
[2018-12-10] MEDS ORDERED: *HR* HYDROcodone/Acet 7.5/325 mg TABLET PO PRN (22:46)
[2018-12-11] MEDS: Ipratropium/Albuterol Neb 3 ML IH SCH ×5 (00:03→15:33)
[2018-12-11] MEDS: Piperacillin/Tazobactam 3.375 GM in 0.9 % Sodium Chloride Mini Bag 100 ML IVPB SCH ×2 (01:05→08:36)
[2018-12-11] MEDS: *HR* Heparin 5,000 UNIT/ML VIAL SQ SCH ×2 (05:24→13:39)
[2018-12-11] MEDS: Magnesium Oxide 400 MG TABLET PO SCH (08:33)
[2018-12-11] MEDS: Aspirin Enteric Coated 81 MG Tablet PO SCH (08:33)
[2018-12-11] MEDS: Pregabalin 50 MG CAPSULE PO SCH (08:34)
[2018-12-11] MEDS: Insulin LISPRO 300 UNITS/3 ML VIAL SQ SCH ×2 (08:35→13:38)
[2018-12-11 11:17] VITALS: BP 175/71
[2018-12-11] MEDS ORDERED: cephALEXin 500 MG CAPSULE PO SCH (13:30)
--- NOTE | 2018-12-11 13:33 | Discharge Summary ---
- NOTES TO OUTPATIENT PROVIDER Notes to Outpatient Provider: UTI causing AMS, discharged on keflex Date of Encounter: 12/11/18 Time of Encounter: 13:30 - Discharge Diagnosis (1) UTI (urinary tract infection) Priority: Primary Status: Acute Qualifiers: Urinary tract infection type: site unspecified Hematuria presence: without hematuria Qualified Code(s): N39.0 - Urinary tract infection, site not specified Hospital course: Dear Doctors, I recently had the opportunity to care for this patient during their recent hospital stay at [facility]. Iris Munson is an 88 F w hx dementia, HTN, DM2, RLS, chronic pain, who presented at time of admission with worsening confusion associated w fever, rigors, cough, and urinary urgency/frequency, as well as generalized weakness. She has had UTIs in the past. In the ED, vitals showed T100.4, HR 90s, RR 20, WBC 14, and her UA here showed nitrites, LE, WBCs, and bacteria, concerning for UTI and sepsis. Due to reported cough, pt got CXR which showed cardiomegaly and vascular congestion as well as patchy infiltrates suggestive of possible PNA, and thus pt started on broad spectrum abx and admitted. Cultures were drawn. Lactate normal. In the hospital, patient improved w abx including return to baseline mentation and function per pt's daughter. UCx resulted E coli sensitive to keflex. Blood cultures negative and pt without any pulmonary symptoms and maintains O2 >92% while ambulating. Pt will discharge today on PO keflex, follow up PCP 1 week, and resume home health. Dx: UTI, sepsis, acute metabolic encephalopathy Pertinent tests/consults: CT head, CT chest, UA and UCx Follow up: PCP 1 week Tests pending: Blood cultures no growth at 48h Med changes: new Keflex 500 bid, last dose 12/16 Mental status: awake, oriented to person and place, speech fluent Code status: DNRCC-A / DNI Time spent on discharge: 25 minutes It has been my pleasure participating in this patient's care. Please contact me with any questions or concerns regarding their hospital stay. Sincerely, Kemar Braxton MD - Discharge Medications Prescriptions: New cephALEXin [Keflex] 500 mg PO BID #10 capsule Continued Memantine [Namenda] 5 mg PO BID HYDROcodone/Acet 7.5/325 mg [[place] 7.5-325 mg] 1 tab PO TID PRN PRN Reason: Pain Multivit-Min/Iron Fum/Folic AC [Jvftd-Dbokdmt-Ijmqduto Tablet] 1 each PO DAILY Magnesium Oxide [Magnesium] 400 mg PO DAILY Pregabalin [Lyrica] 100 mg PO BID Losartan Potassium [Cozaar] 50 mg PO DAILY Alendronate Sodium [Fosamax] 35 mg PO QMONTH Insulin Glargine,Hum.rec.anlog [Lantus Solostar] 45 unit SQ HS [place]-3/Dha/Epa/Fish Oil [Fish Oil 1,000 mg Softgel] 1 each PO BID Furosemide [Lasix] 20 mg PO AD Docusate [Colace] 100 mg PO BID PRN PRN Reason: Constipation Calcium Carbonate/Vitamin D3 [Calcium 500 + Vit D Caplet] 1 each PO BID Atenolol [Tenormin] 50 mg PO BID Aspirin [Lo-Dose Aspirin EC] 81 mg PO DAILY Insulin ASPART [Novolog Flexpen] 4 - 15 units SQ TID Ergocalciferol (VITAMIN D2) [Vitamin D2] 50,000 unit PO GRACE Cyanocobalamin (Vitamin B-12) [Vitamin B-12] 1,000 mcg SL MOWEFR Quetiapine Fumarate [Seroquel] 25 mg PO BID PRN PRN Reason: Agitation Ropinirole HCl [Requip] 3 mg PO HS Colesevelam HCl [Welchol] 1,875 mg PO BID HYDROcodone/Acet 7.5/325 mg [[place] 7.5-325 mg] 1 tab PO Q6HR PRN PRN Reason: Pain Home Medications: Alendronate Sodium [Fosamax] 35 mg PO QMONTH 09/29/18 [History] Aspirin [Lo-Dose Aspirin EC] 81 mg PO DAILY 09/29/18 [History] Atenolol [Tenormin] 50 mg PO BID 09/29/18 [History] Calcium Carbonate/Vitamin D3 [Calcium 500 + Vit D Caplet] 1 each PO BID 09/29/18 [History] Colesevelam HCl [Welchol] 1,875 mg PO BID 09/29/18 [History] Cyanocobalamin (Vitamin B-12) [Vitamin B-12] 1,000 mcg SL MOWEFR 09/29/18 [History] Docusate [Colace] 100 mg PO BID PRN 09/29/18 [History] Ergocalciferol (VITAMIN D2) [Vitamin D2] 50,000 unit PO GRACE 09/29/18 [History] Furosemide [Lasix] 20 mg PO AD 09/29/18 [History] HYDROcodone/Acet 7.5/325 mg [[place] 7.5-325 mg] 1 tab PO TID PRN 09/29/18 [History] Insulin ASPART [Novolog Flexpen] 4 - 15 units SQ TID 09/29/18 [History] Insulin Glargine,Hum.rec.anlog [Lantus Solostar] 45 unit SQ HS 09/29/18 [History] Losartan Potassium [Cozaar] 50 mg PO DAILY 09/29/18 [History] Magnesium Oxide [Magnesium] 400 mg PO DAILY 09/29/18 [History] Memantine [Namenda] 5 mg PO BID 09/29/18 [History] Multivit-Min/Iron Fum/Folic AC [Tfixo-Zhkvjzg-Uivnrzvx Tablet] 1 each PO DAILY 09/29/18 [History] [place]-3/Dha/Epa/Fish Oil [Fish Oil 1,000 mg Softgel] 1 each PO BID 09/29/18 [History] Pregabalin [Lyrica] 100 mg PO BID 09/29/18 [History] Quetiapine Fumarate [Seroquel] 25 mg PO BID PRN 09/29/18 [History] Ropinirole HCl [Requip] 3 mg PO HS 09/29/18 [History] HYDROcodone/Acet 7.5/325 mg [[place] 7.5-325 mg] 1 tab PO Q6HR PRN 12/10/18 [History] cephALEXin [Keflex] 500 mg PO BID #10 capsule 12/11/18 [Rx] Allergies/Adverse Reactions: Allergy/AdvReac Type Severity Reaction Status Date / Time pravastatin Allergy Anaphylaxis Verified 12/09/18 10:52 atorvastatin AdvReac Muscle Pain Verified 12/09/18 10:52 Date of admission: 12/10/18 14:32 Primary care physician: Estephania Lopes DO Consults: 12/09/18 10:29 Consult to Occupational Therapy [CONS] Routine Comment: Evaluate, develop and implement POC Reason for Consult: weakness Does patient have active BEDREST order?: No Is patient medically & hemodynamically stable?: Yes Patient assessed for mobility or mobilized this visit?: No Consult to Physical Therapy [CONS] Routine Comment: Evaluate, develop and implement POC Reason for Consult: weakness Does patient have active BEDREST order?: No Is patient medically & hemodynamically stable?: Yes Patient assessed for mobility or mobilized this visit?: No 12/09/18 11:31 Consult to Nutrition [CONS] Routine Comment: Consulting Provider: NUTRITION Reason for Dietary Consult: MST Score - Constitutional Vitals: Temp Pulse Resp BP Pulse Ox 97.9 F 57 16 175/71 99 12/11/18 11:12 12/11/18 11:12 12/11/18 11:12 12/11/18 11:12 12/11/18 11:12 Exam: General: NAD, good eye contact, well appearing, elderly Thoracic: Normal breath sounds b/l, no wheezing or crackles Cardio: Normal S1 and S2, regular rate and rhythm, no murmurs Abdomen: Soft, nontender Extremities: Warm, well perfused. DP pulses 2+ b/l. Mild pedal edema. Skin: Intact. No rashes, bruises, or ulcers Neuro: Awake, oriented to person and place. Speech fluent. Poor short term memory. Able to stand independently and walk slowly with slight imbalance - Patient Status Disposition: Home Health Service Condition: Fair Functional capacity at discharge: uses cane/walker Overall status at discharge: patient is back to baseline - Discharge Instructions Follow Up With: Estephania Lopes DO [Primary Care Provider] - - Diet and Activity Activity: resume usual activities as tolerated Diet: advance to your usual diet
[2018-12-11] MEDS: Furosemide 20 MG TABLET PO SCH ×2 (13:46→13:47)
== END 2018-12-11 16:24 | disposition home health service (06) | DRG 871 ==
LOC: EMEROOARM 08:25 → 3BNU 08:25 → SUATTDRO 10:13 → 3BNU 10:42 → 2NENU 11:22 → SUATTDRO 12-10 14:32
PROVIDERS: ADMIT Internal Medicine Nephrology; ATTEND Internal Medicine

== ENCOUNTER 2018-12-20 09:12 | Inpatient (IN) ==
--- NOTE | 2018-12-20 09:21 | Emergency Department Note ---
Disposition Clinical Impression: Hypoxia, Generalized weakness Pneumonia Qualifiers: Pneumonia type: due to unspecified organism Laterality: left Lung location: lower lobe of lung Qualified Code(s): J18.1 - Lobar pneumonia, unspecified organism Urinary tract infection Qualifiers: Urinary tract infection type: acute cystitis Hematuria presence: with hematuria Qualified Code(s): N30.01 - Acute cystitis with hematuria Leukocytosis Qualifiers: Leukocytosis type: unspecified Qualified Code(s): D72.829 - Elevated white blood cell count, unspecified Disposition: Admitted As Inpatient Condition: Undetermined Time of Disposition: 13:10 General Adult HPI - General Chief complaint: ED Recheck/Abnormal Lab/Rx Stated complaint: Weakness Time Seen by Provider: 12/20/18 09:18 Source: patient, EMS Limitations: no limitations Nursing Notes Reviewed: Yes Vital Signs Reviewed: Yes - History of Present Illness HPI Narrative: Patient is an 88-year-old female with past medical history of hypertension, diabetes mellitus, dementia, presenting with a chief complaint of generalized weakness and feeling tired. The patient was recently admitted for treatment of pneumonia. She received IV antibiotics and was discharged home on antibiotics. She lives with a family member. She finished the course of antibiotics several days ago. She has been in her usual health and at baseline until this morning. Family states the patient woke up and she was feeling more tired than usual. She also complains of generalized weakness. She has chills but no documented fevers. Family states this is how the presentation presented to the emergency department prior to her last admission. They were concerned that she might be septic again. EMS was called. When they arrived, the patient was hypoxic in the low 80s. They placed her on 2 L of oxygen with improvement in her oxygen saturation. Denies chest pain, abdominal pain, nausea, vomiting, diarrhea. Pain Scale: 0 - Related Data Home Medications Medication Instructions Recorded Confirmed Alendronate Sodium [Fosamax] 35 mg PO QMONTH 09/29/18 12/20/18 Aspirin [Lo-Dose Aspirin EC] 81 mg PO DAILY 09/29/18 12/20/18 Atenolol [Tenormin] 50 mg PO BID 09/29/18 12/20/18 Calcium Carbonate/Vitamin D3 1 each PO BID 09/29/18 12/20/18 [Calcium 500 + Vit D Caplet] Colesevelam HCl [Welchol] 1,875 mg PO BID 09/29/18 12/20/18 Cyanocobalamin (Vitamin B-12) 1,000 mcg SL MOWEFR 09/29/18 12/20/18 [Vitamin B-12] Docusate [Colace] 100 mg PO BID PRN 09/29/18 12/20/18 Ergocalciferol (VITAMIN D2) 50,000 unit PO GRACE 09/29/18 12/20/18 [Vitamin D2] Furosemide [Lasix] 20 mg PO AD 09/29/18 12/20/18 HYDROcodone/Acet 7.5/325 mg [[place] 1 tab PO TID PRN 09/29/18 12/20/18 7.5-325 mg] Insulin ASPART [Novolog Flexpen] 4 - 15 units SQ TID 09/29/18 12/20/18 Insulin Glargine,Hum.rec.anlog 45 unit SQ HS 09/29/18 12/20/18 [Lantus Solostar] Losartan Potassium [Cozaar] 50 mg PO DAILY 09/29/18 12/20/18 Magnesium Oxide [Magnesium] 400 mg PO DAILY 09/29/18 12/20/18 Memantine [Namenda] 5 mg PO BID 09/29/18 12/20/18 Multivit-Min/Iron Fum/Folic AC 1 each PO DAILY 09/29/18 12/20/18 [Lpcpi-Nitnbrw-Lrujavpp Tablet] [place]-3/Dha/Epa/Fish Oil [Fish Oil 1 each PO BID 09/29/18 12/20/18 1,000 mg Softgel] Pregabalin [Lyrica] 100 mg PO BID 09/29/18 12/20/18 Quetiapine Fumarate [Seroquel] 25 mg PO BID PRN 09/29/18 12/20/18 Ropinirole HCl [Requip] 3 mg PO HS 09/29/18 12/20/18 HYDROcodone/Acet 7.5/325 mg [[place] 1 tab PO Q6HR PRN 12/10/18 12/20/18 7.5-325 mg] Previous Rx's Medication Instructions Recorded cephALEXin [Keflex] 500 mg PO BID #10 capsule 12/11/18 Allergies Allergy/AdvReac Type Severity Reaction Status Date / Time pravastatin Allergy Anaphylaxis Verified 12/09/18 10:52 atorvastatin AdvReac Muscle Pain Verified 12/09/18 10:52 All systems ED: reviewed and negative except as stated. Review of Systems: As Per HPI Constitutional: Reports: chills. Denies: fever Cardiovascular: Denies: chest pain, palpitations Respiratory: Reports: cough, dyspnea Gastrointestinal: Denies: abdominal pain, nausea Genitourinary: Denies: dysuria Neurological: Reports: weakness. Denies: headache Past Medical History - Past Medical History Attestation: Yes The following information was validated with the patient. Source: patient Medical history: Reports: dementia, diabetes, hypertension, osteoporosis, renal disease Surgical history: Reports: cholecystectomy, orthopedic, other (Left shoulder) Psychiatric history: Reports: no psych history - Social History Smoking Status: Former smoker Smokeless Tobacco Status: No Alcohol use: Reports: none Drug use: Reports: none Physical Exam - General Limitations: no limitations General appearance: alert, in no apparent distress - Head Head exam: atraumatic, normocephalic - Eye Eye exam: Present: normal appearance, PERRL, EOMI - ENT ENT exam: normal exam, normal oropharynx - Neck Neck exam: Present: normal inspection, trachea midline - Chest Chest inspection: Present: normal inspection, symmetric chest wall rise - Respiratory Respiratory exam: Present: other (Diminished breath sounds bilateral bases without crackles or wheezing) - Cardiovascular Cardiovascular exam: Present: regular rate, normal rhythm, other (bilateral radial pulses palpable and equal) - Abdominal Exam Abdominal exam: Present: soft, Non-Tender - Extremities Exam Extremities exam: Present: normal inspection, normal capillary refill, other (Mild 1+ lateral lower extremity swelling to the calf, unchanged per family) - Neurological Exam Neurological exam: Present: alert, oriented X3, CN II-XII intact. Absent: motor sensory deficit - Expanded Neurological Exam Motor strength - LUE: 5/5 Motor strength - RUE: 5/5 Motor strength - LLE: 5/5 Motor strength - RLE: 5/5 - Psychiatric Psychiatric exam: Present: normal affect, normal mood - Skin Skin exam: Present: warm, dry. Absent: diaphoresis, pallor Course Vital Signs Temperature 99.4 F 12/20/18 09:17 Pulse Rate 88 12/20/18 09:17 Respiratory Rate 18 12/20/18 09:17 Blood Pressure 153/77 12/20/18 09:17 O2 Sat by Pulse Oximetry 100 12/20/18 09:17 Temperature 99.4 F 12/20/18 09:17 Pulse Rate 73 12/20/18 14:14 Respiratory Rate 18 12/20/18 14:14 Blood Pressure 104/77 12/20/18 14:14 O2 Sat by Pulse Oximetry 96 12/20/18 14:14 Oxygen Delivery Oxygen Delivery Nasal Cannula Medical Decision Making - MDM Narrative Medical decision making narrative: Patient presenting with signs and symptoms concerning for an infection. She has generalized weakness and feeling tired. Initial vitals were stable. She remains on 2 L of oxygen at 100%. Patient has no gross neurologic deficits on examination. Afebrile. Chest x-ray, EKG, CBC, BMP, lactate, blood cultures, urinalysis were obtained to evaluate for further sources of infection. Troponin was also obtained to evaluate for ACS. 12:20 Lab work and imaging were reviewed. The patient has pneumonia in the left lung base, as well as interstitial edema, as well as a urinary tract infection. As the patient had a recent hospital admission, we will treat for hospital-acquired pneumonia. We will give her vancomycin, Zosyn, azithromycin. Blood pressures remained stable. She is not septic at this time. She has leukocytosis of 18,000. Lactate is normal. Troponin is less than 0.03. BNP 83. No acute ischemic changes on EKG. Patient will require admission for further management. 13:00 Discussed with hospitalist, Dr. Manjarrez, who accepts admission. She remains stable. - Medical Records Medical records reviewed: Yes I reviewed the patient's medical records. - Lab Data Lab results reviewed: Yes I reviewed the patient's lab results. Result diagrams: 12/20/18 09:18 12/20/18 09:27 Lab Results 12/20/18 12/20/18 12/20/18 Range/Units 09:18 09:27 09:27 WBC 18.7 H (4.3-11.1) K/mcL RBC 4.10 (3.82-4.97) M/mcL Hgb 12.5 (11.5-15.4) g/dL Hct 39.1 (35.3-44.9) % MCV 95.4 (83.0-100.0) fL MCH 30.5 (28.0-33.3) pg MCHC 32.0 (31.6-35.5) g/dL RDW 13.7 (11.5-14.5) % Plt Count 173 (140-400) K/mcL MPV 10.5 (9.4-12.4) fL Immature Gran % 0.4 (0-4) % Seg Neutrophils % 89.1 % Lymphocytes % 7.3 % Monocytes % 2.8 % Eosinophils % 0.2 % Basophils % 0.2 % Neutrophils # 16.7 H (1.6-8.9) K/mcL Lymphocytes # 1.4 (0.6-4.6) K/mcL Monocytes # 0.5 (0.0-1.3) K/mcL Eosinophils # 0.0 (0.0-0.6) K/mcL Basophils # 0.0 (0.0-0.2) K/mcL Carboxyhemoglobin (0-5) % Sodium 141 (136-145) mEq/L Potassium 4.7 (3.5-5.1) mEq/L Chloride 107 (98-107) mEq/L Carbon Dioxide 26 (23-29) mEq/L BUN 32 H (8-23) mg/dL Creatinine 1.16 (0.60-1.20) mg/dL Est GFR ( Amer) 53 L (> 60) Est GFR (Non-Af Amer) 44 L (> 60) BUN/Creatinine Ratio 28 H (6-26) Glucose 170 H (70-105) mg/dL Calculated Osmolality 303 H (280-300) Lactic Acid 1.8 (0.5-2.2) mmol/L Calcium 9.5 (8.6-10.3) mg/dL Troponin I < 0.03 (< 0.04) ng/mL B-Natriuretic Peptide (Less than 100) pg/mL Urine Color (Yellow) Urine Clarity (Clear) Urine pH (5.0-8.0) pH Units Ur Specific [place] (1.010-1.025) Urine Protein (Neg-Trace) mg/dL Urine Glucose (UA) (Normal) mg/dL Urine Ketones (Negative) mg/dL Urine Blood (Negative) Urine Nitrite (Negative) Urine Bilirubin (Negative) Urine Urobilinogen (Normal) mg/dL Ur Leukocyte Esterase (Negative) Urine Microscopic RBC (0-3) per hpf Urine Microscopic WBC (0-3) per hpf Ur Squamous Epith Cells (None-Few) per lpf Urine Bacteria (None-Few) per hpf Hyaline Casts (None-Few) per lpf Ur Culture Indicated? (NO) 12/20/18 12/20/18 12/20/18 Range/Units 09:27 09:27 11:05 WBC (4.3-11.1) K/mcL RBC (3.82-4.97) M/mcL Hgb (11.5-15.4) g/dL Hct (35.3-44.9) % MCV (83.0-100.0) fL MCH (28.0-33.3) pg MCHC (31.6-35.5) g/dL RDW (11.5-14.5) % Plt Count (140-400) K/mcL MPV (9.4-12.4) fL Immature Gran % (0-4) % Seg Neutrophils % % Lymphocytes % % Monocytes % % Eosinophils % % Basophils % % Neutrophils # (1.6-8.9) K/mcL Lymphocytes # (0.6-4.6) K/mcL Monocytes # (0.0-1.3) K/mcL Eosinophils # (0.0-0.6) K/mcL Basophils # (0.0-0.2) K/mcL Carboxyhemoglobin 4 (0-5) % Sodium (136-145) mEq/L Potassium (3.5-5.1) mEq/L Chloride (98-107) mEq/L Carbon Dioxide (23-29) mEq/L BUN (8-23) mg/dL Creatinine (0.60-1.20) mg/dL Est GFR ( Amer) (> 60) Est GFR (Non-Af Amer) (> 60) BUN/Creatinine Ratio (6-26) Glucose (70-105) mg/dL Calculated Osmolality (280-300) Lactic Acid (0.5-2.2) mmol/L Calcium (8.6-10.3) mg/dL Troponin I (< 0.04) ng/mL B-Natriuretic Peptide 83 (Less than 100) pg/mL Urine Color Yellow (Yellow) Urine Clarity Cloudy A (Clear) Urine pH 5.0 (5.0-8.0) pH Units Ur Specific [place] 1.012 (1.010-1.025) Urine Protein 30 H (Neg-Trace) mg/dL Urine Glucose (UA) Normal (Normal) mg/dL Urine Ketones Negative (Negative) mg/dL Urine Blood Large H (Negative) Urine Nitrite Positive A (Negative) Urine Bilirubin Negative (Negative) Urine Urobilinogen Normal (Normal) mg/dL Ur Leukocyte Esterase Trace H (Negative) Urine Microscopic RBC TNTC H (0-3) per hpf Urine Microscopic WBC 15-30 H (0-3) per hpf Ur Squamous Epith Cells Moderate H (None-Few) per lpf Urine Bacteria Many H (None-Few) per hpf Hyaline Casts None Seen (None-Few) per lpf Ur Culture Indicated? YES A (NO) - Radiology Data Radiology results reviewed: Yes I reviewed the patient's radiology results. Chest X-Ray 12/20/18 09:18 IMPRESSION: Prominence of the interstitial markings which is concerning for interstitial edema. Small left effusion. Atelectasis or infiltrate in the left lung base. Follow up to resolution is suggested. D/ / 12/20/2018 09:57:28 Jenelle Rodriguez MD / Mallory Lantigua Interpreting Provider: Jenelle Rodriguez MD Attestation Statement - Attestation Attestation: Patient was seen with resident physician. I reviewed the history, physical, assessment and plan, and agree with the findings. I also personally evaluated this patient and had [id number] time with this patient. 88-year-old female presents to the emergency department with chief complaint of generalized weakness. Patient has a history of pneumonia and sepsis. She is recently discharged hospital approximately week ago. She was being treated at home for UTI. She said the treatments were done, but today she started feeling bad again. Family says that the symptoms are similar to when she had her sepsis. Namely is just generalized weakness and not feeling well. Patient denies dysuria. She has had no cough. She did have a fever at home. I which again was hard with the family was concerned about. Review of systems as above remainder negative. Physical exam vital signs on arrival were stable, but this is on oxygen provided by EMS. Patient is not on home O2. Report per EMS is that she had mid 80s was her oxygen sat on room air. ENT is unremarkable. Heart regular rhythm and rate. Lungs could not hear any crackles or wheezing. Abdomen is soft and nontender. Extremities unremarkable. Neurologically she moves all extremities she has no focal deficits and she is alert. Psych little bit of a flat affect but otherwise okay. ED course. We will do a full sepsis workup. Likely considering the patient's history she will end up being admitted to the hospital for additional evaluation and treatment. Patient's workup demonstrated UTI and pneumonia. Because she is recently discharged hospital will treat for hospital-acquired pneumonia. She is also given IV hydration. Hemodynamically she did well while in the emergency department. Hospitalist agreed to accept patient for admission. I agree with resident physician assessment and plan.
[2018-12-20 09:48] LABS: Basophils % 0.2 %; Eosinophils % 0.2 %; Hematocrit 39.1 % (35.3-44.9); Hemoglobin 12.5 g/dL (11.5-15.4); Immature Granulocytes % 0.4 % (0-4); Lymphocytes # 1.4 K/mcL (0.6-4.6); Lymphocytes % 7.3 %; Mean Corpuscular Hemoglobin 30.5 pg (28.0-33.3); Mean Corpuscular Volume 95.4 fL (83.0-100.0); Mean Platelet Volume 10.5 fL (9.4-12.4); Monocytes # 0.5 K/mcL (0.0-1.3); Monocytes % 2.8 %; Neutrophils # 16.7 K/mcL (1.6-8.9); Platelet Count 173 K/mcL (140-400); Red Cell Distribution Width 13.7 % (11.5-14.5); Segmented Neutrophils % 89.1 %; White Blood Count 18.7 K/mcL (4.3-11.1)
[2018-12-20 10:04] LABS: BUN/Creatinine Ratio 28 (6-26); Blood Urea Nitrogen 32 mg/dL (8-23); Calcium 9.5 mg/dL (8.6-10.3); Carbon Dioxide 26 mEq/L (23-29); Chloride 107 mEq/L (98-107); Glucose 170 mg/dL (70-105); Osmolality,Calculated 303 (280-300); Potassium 4.7 mEq/L (3.5-5.1); Sodium 141 mEq/L (136-145); Troponin I < 0.03 ng/mL (< 0.04); eGFR For African Americans 53 (> 60); eGFR For Non-African Americans 44 (> 60)
[2018-12-20 11:24] LABS: Bilirubin,Urine Negative (Negative); Blood,Urine Large (Negative); Clarity,Urine Cloudy (Clear); Color,Urine Yellow (Yellow); Glucose,Urine (UA) Normal (Normal); Ketones,Urine Negative (Negative); Leukocyte Esterase,Urine Trace (Negative); Nitrite,Urine Positive (Negative); Protein,Urine 30 mg/dL (Neg-Trace); Specific Gravity,Urine 1.012 (1.010-1.025); Urobilinogen,Urine Normal (Normal)
[2018-12-20 11:27] LABS: Bacteria,Urine Many per hpf (None-Few); Hyaline Casts,Urine None Seen per lpf (None-Few); RBC,Urine TNTC per hpf (0-3); Squamous Epithelial Cell,Urine Moderate per lpf (None-Few); WBC,Urine 15-30 per hpf (0-3)
[2018-12-20] MEDS ORDERED: Piperacillin/Tazobactam 3.375 GM in 0.9 % Sodium Chloride Mini Bag 100 ML IVPB ONE (12:06)
[2018-12-20] MEDS ORDERED: Azithromycin 500 MG in D5% in Water 250 ML IVPB ONE (12:06)
[2018-12-20] MEDS ORDERED: Naloxone 0.4 MG/ML INJ IVP PRN ×2 (13:19→14:39)
[2018-12-20] MEDS ORDERED: Ondansetron 4 MG/2 ML VIAL IVP PRN (13:19)
[2018-12-20] MEDS ORDERED: Acetaminophen 325 MG TABLET PO PRN (13:19)
--- NOTE | 2018-12-20 13:50 | Internal Med History&Physical ---
Date of Encounter: 12/20/18 Time of Encounter: 13:39 Internal Medicine - H&P: HPI Chief complaint: weakness Admitted From: Emergency Dept Plans for Post Hospital Care: Home History of present illness: Ms. Munson is a 88 year old female past medical history hypertension dementia CKG stage III diabetes GINNY on CPAP. Patient was recently admitted to this facility approximate one week ago with urinary tract infection she received IV antibiotics and was discharged home on Keflex. She resides with her daughter who is her caregiver-daughter states that since she has been home she continues to experience fatigue and sleeps frequently. She normally uses a walker however has been generally weak and at times has almost fallen. Patient has been experiencing chills but no fevers. No nausea vomiting or diarrhea she has been experiencing urinary urgency and frequency. She also has nonproductive cough denies any shortness of breath or sputum production. Daughter was concerned the patient may be developing sepsis due to her weakness and called EMS. Upon arrival of EMS patient was found to be hypoxic with SPO2 in the 80s. She was placed on 2 L nasal cannula and oxygen saturations increased to 90s. In the ER chest x-ray did reveal a atelectasis/infiltrate in the left lung base as well as a small left effusion. Mild for did reveal leukocytosis urinalysis indicative of UTI. Blood cultures were drawn patient was initially given vancomycin and Zosyn and azithromycin in the ER. She was admitted for further workup and evaluation of UTI/HCAP. Currently patient does not appear to be in any respiratory distress and denies any pain at this time. I discussed treatment plan with the patient's family who is at bedside and verbalizes understanding. I did discuss CODE STATUS with the patient and family-POA would like patient to be a DNR CC. Past Med Surg Social Fam HX - Past Medical History Medical history: dementia, diabetes, hypertension, osteoporosis, renal disease Additional medical history: neuropathy, spinal stenosis, alzheimers, stage 3 kidney dx Psychiatric history: no psych history - Past Surgical History Surgical History: cholecystectomy, orthopedic, other (Left shoulder) Additional surgical history: Tubal ligation - Social History Smoking Status: Former smoker Smokeless Tobacco Status: No Alcohol use: none Drug use: none - Family History Sister Hx Family Cancer: Yes (lung) Hx Family Endocrine Disorder: Yes (DM) Mother Living Status: Hx Family Cardiac Disorders: Yes (CHF) Father Hx Family Cancer: Yes (Throat) Brother Hx Family Endocrine Disorder: Yes (DM) Internal Medicine - H&P: Meds Alendronate Sodium [Fosamax] 35 mg PO QMONTH 09/29/18 [History] Aspirin [Lo-Dose Aspirin EC] 81 mg PO DAILY 09/29/18 [History] Atenolol [Tenormin] 50 mg PO BID 09/29/18 [History] Calcium Carbonate/Vitamin D3 [Calcium 500 + Vit D Caplet] 1 each PO BID 09/29/18 [History] Colesevelam HCl [Welchol] 1,875 mg PO BID 09/29/18 [History] Cyanocobalamin (Vitamin B-12) [Vitamin B-12] 1,000 mcg SL MOWEFR 09/29/18 [History] Docusate [Colace] 100 mg PO BID PRN 09/29/18 [History] Ergocalciferol (VITAMIN D2) [Vitamin D2] 50,000 unit PO GRACE 09/29/18 [History] Furosemide [Lasix] 20 mg PO AD 09/29/18 [History] HYDROcodone/Acet 7.5/325 mg [[place] 7.5-325 mg] 1 tab PO TID PRN 09/29/18 [History] Insulin ASPART [Novolog Flexpen] 4 - 15 units SQ TID 09/29/18 [History] Insulin Glargine,Hum.rec.anlog [Lantus Solostar] 45 unit SQ HS 09/29/18 [History] Losartan Potassium [Cozaar] 50 mg PO DAILY 09/29/18 [History] Magnesium Oxide [Magnesium] 400 mg PO DAILY 09/29/18 [History] Memantine [Namenda] 5 mg PO BID 09/29/18 [History] Multivit-Min/Iron Fum/Folic AC [Uuiys-Hlqqdbh-Syhycwdi Tablet] 1 each PO DAILY 09/29/18 [History] [place]-3/Dha/Epa/Fish Oil [Fish Oil 1,000 mg Softgel] 1 each PO BID 09/29/18 [History] Pregabalin [Lyrica] 100 mg PO BID 09/29/18 [History] Quetiapine Fumarate [Seroquel] 25 mg PO BID PRN 09/29/18 [History] Ropinirole HCl [Requip] 3 mg PO HS 09/29/18 [History] HYDROcodone/Acet 7.5/325 mg [[place] 7.5-325 mg] 1 tab PO Q6HR PRN 12/10/18 [History] cephALEXin [Keflex] 500 mg PO BID #10 capsule 12/11/18 [Rx] Allergy/AdvReac Type Severity Reaction Status Date / Time pravastatin Allergy Anaphylaxis Verified 12/09/18 10:52 atorvastatin AdvReac Muscle Pain Verified 12/09/18 10:52 All Systems PM: A 10-system review of systems was performed and is negative for pertinent findings except as documented above in the HPI. - Constitutional Vitals: Temp Pulse Resp BP Pulse Ox 99.4 F 88 18 153/77 100 12/20/18 09:17 12/20/18 09:17 12/20/18 09:17 12/20/18 09:17 12/20/18 09:17 Exam: Skin: Free of rash and discoloration. Eyes: Sclera is white. There is no discharge from eyes. ENMT: Oral/pharyngeal mucosa is normal in appearance. There is no discharge from nose or ears. Respiratory: Breath sounds diminished in the bases-no wheezing or rales noted CV: Heart is regular with no gallop or murmur. GI: Abdomen is flat and soft with no palpable mass or visceromegaly. : There is no tenderness in patient's flanks bilaterally. Neuro exam: He has good strength in upper and lower extremities. He has normal eye movements. Psychiatric: He has normal affect. His thought process is appropriate to the situation. Internal Med - H&P Results - Labs CBC & Chem 7: 12/20/18 09:18 12/20/18 09:27 Labs: Short CBC 12/20/18 Range/Units 09:18 WBC 18.7 H (4.3-11.1) K/mcL Hgb 12.5 (11.5-15.4) g/dL Hct 39.1 (35.3-44.9) % Plt Count 173 (140-400) K/mcL Neutrophils # 16.7 H (1.6-8.9) K/mcL BMP 12/20/18 09:27 Sodium 141 Potassium 4.7 Chloride 107 Carbon Dioxide 26 BUN 32 H Creatinine 1.16 Glucose 170 H Calcium 9.5 Cardiac Enzymes 12/20/18 Range/Units 09:27 Troponin I < 0.03 (< 0.04) ng/mL Urine 12/20/18 Range/Units 11:05 Urine Color Yellow (Yellow) Urine Clarity Cloudy A (Clear) Urine pH 5.0 (5.0-8.0) pH Units Ur Specific [place] 1.012 (1.010-1.025) Urine Protein 30 H (Neg-Trace) mg/dL Urine Glucose (UA) Normal (Normal) mg/dL - Impressions ITS Impressions Chest X-Ray 12/20/18 09:18 IMPRESSION: Prominence of the interstitial markings which is concerning for interstitial edema. Small left effusion. Atelectasis or infiltrate in the left lung base. Follow up to resolution is suggested. D/ / 12/20/2018 09:57:28 Jenelle Rodriguez MD / Mallory Lantigua Interpreting Provider: Jenelle Rodriguez MD - Assessment and Plan (1) HCAP (healthcare-associated pneumonia) Current Visit: No Status: Acute Assessment and plan: Patient presented with increasing weakness and fatigue. Daughter states the patient almost fell today she assisted her to the bed. Upon arrival of EMS patient's oxygen saturations were 80% place on 2 L nasal cannula and oxygen saturations improved. Chest x-ray was obtained which did reveal atelectasis/ in the left lung base. She did have leukocytosis and a low-grade fever. Daughter states patient has had a nonproductive cough as well as subjective fevers. She was given vancomycin and Zosyn and azithromycin in the emergency department Blood cultures have been obtained We will place patient on cefepime/Levaquin Obtain sputum culture Attain Legionella and strep pneumonia antigens Continue with oxygen titrated to maintain SPO2 greater than 92% (2) Acute respiratory failure with hypoxia Current Visit: Yes Status: Acute Assessment and plan: Patient presented with weakness-upon arrival EMS patient was found to be hypoxic with PO2 in the 80s place on 2 L nasal cannula which improvement-hypoxia secondary to pneumonia Continue with oxygen titrated to maintain SPO2 greater than 92% Continue with CPAP at night (3) UTI (urinary tract infection) Current Visit: Yes Status: Acute Assessment and plan: Patient was recently treated approximately a week ago at this facility for urinary tract infections. She was sent home with Keflex-daughter states the patient continues to experience urinary urgency and frequency presented with leukocytosis and urinalysis reveals UTI. Previous micro-culture grew Escherichia coli sensitive to Levaquin which we will initiate on the patient. She was given vancomycin and Zosyn and azithromycin in the ER Urine culture pending at this time Blood cultures have been obtained Qualifiers: Urinary tract infection type: acute cystitis Hematuria presence: with h ematuria Qualified Code(s): N30.01 - Acute cystitis with hematuria (4) DVT prophylaxis Current Visit: No Status: Acute Assessment and plan: Subcutaneous heparin (5) CKD (chronic kidney disease) stage 3, GFR 30-59 ml/min Current Visit: No Status: Chronic Assessment and plan: Patient has history CK D it appears her creatinine baseline is around 1-1.5-currently at baseline we will continue to monitor closely Avoid Nephrotoxins Renal dose antibiotics Maintain MAP greater than 60 (6) Dementia Current Visit: No Status: Chronic Assessment and plan: Patient's daughter states she has a history of dementia and does have some confusion however states that she is more confused than normal. Currently patient is pleasantly confused cooperative and following simple commands. We will continue with home medications once they are verified Qualifiers: Dementia type: Alzheimer's disease Alzheimer's disease onset: unspecified onset Dementia behavioral disturbance: without behavioral disturbance Qualified Code(s): G30.9 - Alzheimer's disease, unspecified; F02.80 - Dementia in other diseases classified elsewhere without behavioral disturbance (7) Diabetes mellitus Current Visit: No Status: Chronic Assessment and plan: Accu-Cheks before meals at bedtime with sliding scale insulin as well as basal insulin Diabetic diet Qualifiers: Diabetes mellitus type: type 2 Diabetes mellitus assistant terminal manager insulin use: with prison use Diabetes mellitus complication detail: with nephropathy Qualified Code(s): E11.21 - Type 2 diabetes mellitus with diabetic nephropathy; Z79.4 - skilled nursing (current) use of insulin (8) HTN (hypertension) Current Visit: No Status: Chronic Assessment and plan: Currently blood pressure is controlled we will continue with home medications once verified Qualifiers: Hypertension type: essential hypertension Qualified Code(s): I10 - Essential (primary) hypertension (9) GINNY on CPAP Current Visit: No Status: Chronic Assessment and plan: We will continue with patient's home CPAP - Time Spent With Patient Total time spent is greater than 50% in coordination of care (as documented) at patient's floor/unit and/or counseling patient:
[2018-12-20] MEDS ORDERED: *HR* Dextrose 50 % in Water (Syg) 50 ML SYRINGE IVP PRN (14:12)
[2018-12-20] MEDS ORDERED: D5% in Water 1,000 ML IVC PRN (14:12)
[2018-12-20] MEDS ORDERED: Dextrose Gel 15 GM/37.5 ML TUBE PO PRN ×2 (14:12)
[2018-12-20] MEDS ORDERED: Furosemide 20 MG TABLET PO SCH (14:45)
[2018-12-20] MEDS: Insulin LISPRO 300 UNITS/3 ML VIAL SQ SCH ×2 (17:16→21:15)
[2018-12-20] MEDS: *HR* Heparin 5,000 UNIT/ML VIAL SQ SCH (17:18)
[2018-12-20] MEDS: Cyanocobalamin (B-12) 1,000 MCG TABLET PO SCH (17:30)
[2018-12-20] MEDS ORDERED: levoFLOXacin 750 MG/150 ML 750 MG/150 ML BAG IVPB SCH (18:00)
[2018-12-20] MEDS ORDERED: NON-FORMULARY MEDICATION 1 EACH EACH (Calcium Carbonate/Vitamin D3 [Calcium 500 + Vit D Ca PO SCH (21:00)
[2018-12-20] MEDS: Pregabalin 50 MG CAPSULE PO SCH (21:22)
[2018-12-20] MEDS: *HR* HYDROcodone/Acet 5/325 mg TABLET PO PRN (21:22)
[2018-12-20] MEDS: Insulin DETEMIR 100 UNIT/ML X5UNITS SQ SCH (21:23)
[2018-12-20] MEDS: (Omega-3/Dha/Epa/Fish Oil [Fish Oil 1,000 Mg Softgel] PO SCH (21:24)
[2018-12-21 04:59] LABS: Basophils % 0.4 %; Eosinophils # 0.2 K/mcL (0.0-0.6); Hematocrit 33.8 % (35.3-44.9); Immature Granulocytes % 0.4 % (0-4); Lymphocytes # 1.9 K/mcL (0.6-4.6); Lymphocytes % 23.6 %; Mean Corpuscular HGB Conc 31.7 g/dL (31.6-35.5); Mean Corpuscular Hemoglobin 30.3 pg (28.0-33.3); Mean Corpuscular Volume 95.8 fL (83.0-100.0); Mean Platelet Volume 10.7 fL (9.4-12.4); Monocytes # 0.5 K/mcL (0.0-1.3); Monocytes % 5.7 %; Neutrophils # 5.4 K/mcL (1.6-8.9); Platelet Count 150 K/mcL (140-400); Red Blood Count 3.53 M/mcL (3.82-4.97); Segmented Neutrophils % 66.9 %
[2018-12-21 05:02] LABS: Hemoglobin 10.7 g/dL (11.5-15.4); White Blood Count 8.1 K/mcL (4.3-11.1)
[2018-12-21 05:24] LABS: Calcium 8.8 mg/dL (8.6-10.3); Chol/HDL Ratio 3.2 (0-4.9); Magnesium 1.8 mg/dL (1.6-2.6)
[2018-12-21] MEDS: *HR* Heparin 5,000 UNIT/ML VIAL SQ SCH ×2 (05:48→17:37)
[2018-12-21] MEDS: Insulin LISPRO 300 UNITS/3 ML VIAL SQ SCH ×4 (07:30→20:27)
[2018-12-21] MEDS ORDERED: levoFLOXacin 750 MG/150 ML 750 MG/150 ML BAG IVPB SCH (09:00)
[2018-12-21] MEDS: Cefepime HCl 2,000 MG in Water for inj. (sterile) 20 ML IVP SCH ×2 (09:03→20:26)
[2018-12-21] MEDS: Pregabalin 50 MG CAPSULE PO SCH ×2 (09:04→20:26)
[2018-12-21] MEDS: Cholecalciferol (D-3) 1,000 UNIT (25MCG) TABLET PO SCH (09:04)
[2018-12-21] MEDS: Magnesium Oxide 400 MG TABLET PO SCH (09:05)
[2018-12-21] MEDS: Multivit/Ca/Min/Fe/FA 1 TAB TABLET PO SCH (09:05)
[2018-12-21] MEDS: Aspirin Enteric Coated 81 MG Tablet PO SCH (09:05)
[2018-12-21] MEDS: *HR* HYDROcodone/Acet 5/325 mg TABLET PO PRN ×2 (09:05→21:20)
[2018-12-21] MEDS: Furosemide 20 MG TABLET PO SCH (09:05)
[2018-12-21] MEDS: (Omega-3/Dha/Epa/Fish Oil [Fish Oil 1,000 Mg Softgel] PO SCH (09:06)
--- NOTE | 2018-12-21 10:56 | Internal Med Progress Note ---
Hospitalist Progress Note - Encounter Date of Encounter: 12/21/18 Time of Encounter: 10:56 - Subjective Interval History: Patient was seen and examined at bedside currently seems to be improving patient's family states that she seems to be returning to her mental baseline. He continues to require oxygen supplementation - Exam Vitals: Temp Pulse Resp BP Pulse Ox 98.0 F 57 16 161/69 97 12/21/18 06:34 12/21/18 06:34 12/21/18 06:34 12/21/18 06:34 12/21/18 06:34 Exam: Skin: Free of rash and discoloration. Eyes: Sclera is white. There is no discharge from eyes. ENMT: Oral/pharyngeal mucosa is normal in appearance. There is no discharge fr om nose or ears. Respiratory: Breath sounds diminished in the bases-no wheezing or rales noted CV: Heart is regular with no gallop or murmur. GI: Abdomen is flat and soft with no palpable mass or visceromegaly. : There is no tenderness in patient's flanks bilaterally. Neuro exam: He has good strength in upper and lower extremities. He has normal eye movements. Psychiatric: He has normal affect. His thought process is appropriate to the situation. - Assessment and Plan (1) HCAP (healthcare-associated pneumonia) Current Visit: No Status: Acute Assessment and Plan: Patient presented with increasing weakness and fatigue. Daughter states the patient almost fell today she assisted her to the bed. Upon arrival of EMS patient's oxygen saturations were 80% place on 2 L nasal cannula and oxygen saturations improved. Chest x-ray was obtained which did reveal atelectasis/ in the left lung base. She did have leukocytosis and a low-grade fever. Daughter states patient has had a nonproductive cough as well as subjective fevers. She was given vancomycin and Zosyn and azithromycin in the emergency department Blood cultures have been obtained We will place patient on cefepime/Levaquin Obtain sputum culture-pending Attain Legionella and strep pneumonia antigens Continue with oxygen titrated to maintain SPO2 92% Patient may require home oxygen and may need a walk test prior discharge (2) Acute respiratory failure with hypoxia Current Visit: Yes Status: Acute Assessment and Plan: Patient presented with weakness-upon arrival EMS patient was found to be hypoxic with PO2 in the 80s place on 2 L nasal cannula which improvement-hypoxia secondary to pneumonia Continues with oxygen supplementation patient will require 6 minute walk prior discharge Continue with oxygen titrated to maintain SPO2 greater than 92% Continue with CPAP at night (3) UTI (urinary tract infection) Current Visit: Yes Status: Acute Assessment and Plan: Patient was recently treated approximately a week ago at this facility for urinary tract infections. She was sent home with Keflex-daughter states the patient continues to experience urinary urgency and frequency presented with leukocytosis and urinalysis reveals UTI. Previous micro-culture grew Escherichia coli sensitive to Levaquin which we will initiate on the patient. She was given vancomycin and Zosyn and azithromycin in the ER Urine culture pending at this time Blood cultures have been obtained If KRSA swab negative will de escalate (4) DVT prophylaxis Current Visit: No Status: Acute Assessment and Plan: Subcutaneous heparin (5) CKD (chronic kidney disease) stage 3, GFR 30-59 ml/min Current Visit: No Status: Chronic Assessment and Plan: Patient has history CK D it appears her creatinine baseline is around 1-1.5-currently at baseline we will continue to monitor closely Avoid Nephrotoxins Renal dose antibiotics Maintain MAP greater than 60 (6) Dementia Current Visit: No Status: Chronic Assessment and Plan: Patient's daughter states she has a history of dementia and does have some confusion however states that she is more confused than normal. Currently patient is pleasantly confused cooperative and following simple commands. We will continue with home medications once they are verified (7) Diabetes mellitus Current Visit: No Status: Chronic Assessment and Plan: Accu-Cheks before meals at bedtime with sliding scale insulin as well as basal insulin Diabetic diet (8) HTN (hypertension) Current Visit: No Status: Chronic Assessment and Plan: Currently blood pressure is controlled we will continue with home medications once verified (9) GINNY on CPAP Current Visit: No Status: Chronic Assessment and Plan: We will continue with patient's home CPAP - Time Spent with Patient Total time spent is greater than 50% in coordination of care (as documented) at patient's floor/unit and/or counseling patient: Internal Medicine: Result - Labs CBC & Chem 7: 12/21/18 04:21 12/21/18 04:21 Labs: Short CBC 12/21/18 Range/Units 04:21 WBC 8.1 D (4.3-11.1) K/mcL Hgb 10.7 L D (11.5-15.4) g/dL Hct 33.8 L (35.3-44.9) % Plt Count 150 (140-400) K/mcL Neutrophils # 5.4 (1.6-8.9) K/mcL BMP 12/21/18 04:21 Sodium 142 Potassium 4.0 Chloride 110 H Carbon Dioxide 25 BUN 26 H Creatinine 1.07 Glucose 99 Calcium 8.8 Urine 12/20/18 Range/Units 11:05 Urine Color Yellow (Yellow) Urine Clarity Cloudy A (Clear) Urine pH 5.0 (5.0-8.0) pH Units Ur Specific [place] 1.012 (1.010-1.025) Urine Protein 30 H (Neg-Trace) mg/dL Urine Glucose (UA) Normal (Normal) mg/dL Consult Discharge Plan - Plan Referrals: Estephania Lopes DO [Primary Care Provider] - (3) UTI (urinary tract infection) Qualifiers: Urinary tract infection type: acute cystitis Hematuria presence: with hematuria Qualified Code(s): N30.01 - Acute cystitis with hematuria (6) Dementia Qualifiers: Dementia type: Alzheimer's disease Alzheimer's disease onset: unspecified onset Dementia behavioral disturbance: without behavioral disturbance Qualified Code(s): G30.9 - Alzheimer's disease, unspecified; F02.80 - Dementia in other diseases classified elsewhere without behavioral disturbance (7) Diabetes mellitus Qualifiers: Diabetes mellitus type: type 2 Diabetes mellitus terminal gauger insulin use: with prison use Diabetes mellitus complication detail: with nephropathy Qualified Code(s): E11.21 - Type 2 diabetes mellitus with diabetic nephropathy; Z79.4 - snf (current) use of insulin (8) HTN (hypertension) Qualifiers: Hypertension type: essential hypertension Qualified Code(s): I10 - Essential (primary) hypertension
[2018-12-21] MEDS: Insulin DETEMIR 100 UNIT/ML X5UNITS SQ SCH (20:27)
[2018-12-22] MEDS: *HR* HYDROcodone/Acet 5/325 mg TABLET PO PRN (04:58)
[2018-12-22] MEDS: *HR* Heparin 5,000 UNIT/ML VIAL SQ SCH (04:58)
[2018-12-22 07:14] VITALS: BP 116/63
[2018-12-22 07:19] LABS: Basophils # 0.1 K/mcL (0.0-0.2); Basophils % 0.6 %; Eosinophils # 0.3 K/mcL (0.0-0.6); Eosinophils % 3.1 %; Hematocrit 34.7 % (35.3-44.9); Hemoglobin 11.1 g/dL (11.5-15.4); Immature Granulocytes % 0.4 % (0-4); Lymphocytes # 2.5 K/mcL (0.6-4.6); Lymphocytes % 29.1 %; Mean Corpuscular Volume 93.8 fL (83.0-100.0); Mean Platelet Volume 10.8 fL (9.4-12.4); Monocytes # 0.5 K/mcL (0.0-1.3); Neutrophils # 5.2 K/mcL (1.6-8.9); Platelet Count 166 K/mcL (140-400); Red Cell Distribution Width 13.6 % (11.5-14.5); Segmented Neutrophils % 60.8 %; White Blood Count 8.5 K/mcL (4.3-11.1)
[2018-12-22 07:38] LABS: Calcium 8.7 mg/dL (8.6-10.3); Potassium 4.2 mEq/L (3.5-5.1)
[2018-12-22] MEDS: Insulin LISPRO 300 UNITS/3 ML VIAL SQ SCH (08:30)
[2018-12-22] MEDS: Cefepime HCl 2,000 MG in Water for inj. (sterile) 20 ML IVP SCH (08:31)
[2018-12-22] MEDS: Aspirin Enteric Coated 81 MG Tablet PO SCH (08:32)
[2018-12-22] MEDS: Cyanocobalamin (B-12) 1,000 MCG TABLET PO SCH (08:33)
[2018-12-22] MEDS: Cholecalciferol (D-3) 1,000 UNIT (25MCG) TABLET PO SCH (08:33)
[2018-12-22] MEDS: Magnesium Oxide 400 MG TABLET PO SCH (08:33)
[2018-12-22] MEDS: Furosemide 20 MG TABLET PO SCH (08:33)
[2018-12-22] MEDS: Multivit/Ca/Min/Fe/FA 1 TAB TABLET PO SCH (08:33)
[2018-12-22] MEDS: Pregabalin 50 MG CAPSULE PO SCH (08:33)
[2018-12-22] MEDS ORDERED: levoFLOXacin 750 MG/150 ML 750 MG/150 ML BAG IVPB SCH (09:00)
--- NOTE | 2018-12-22 10:26 | Physician Discharge Referral ---
Home Health/Hosp Referral Info Transfer to: Home Health Provider in Charge Post Discharge: PCP - Diagnosis (1) Diabetes mellitus Priority: Secondary Status: Chronic (2) HTN (hypertension) Priority: Secondary Status: Chronic (3) UTI (urinary tract infection) Priority: Primary Status: Acute (4) HCAP (healthcare-associated pneumonia) Priority: Primary Status: Acute (5) Acute respiratory failure with hypoxia Priority: Primary Status: Acute - Respiratory Orders Smoking Cessation: Smoking cessation has been advised. For more information, call the [place] Tobacco Quit Line at 2-093-TJCR-NOW. - Diet/Nutrition Diet/Nutrition Orders: Cardiac - Activity Activity Orders: Ambulate - Services Needed Following services are medically necessary services: Nursing, Home Health Aide, Physical Therapy, Occupational Therapy - Transfer Medications Home Medications: Alendronate Sodium [Fosamax] 35 mg PO QMONTH 09/29/18 [History] Aspirin [Lo-Dose Aspirin EC] 81 mg PO DAILY 09/29/18 [History] Atenolol [Tenormin] 50 mg PO BID 09/29/18 [History] Calcium Carbonate/Vitamin D3 [Calcium 500 + Vit D Caplet] 1 each PO BID 09/29/18 [History] Colesevelam HCl [Welchol] 1,875 mg PO BID 09/29/18 [History] Cyanocobalamin (Vitamin B-12) [Vitamin B-12] 1,000 mcg SL MOWEFR 09/29/18 [History] Docusate [Colace] 100 mg PO BID PRN 09/29/18 [History] Ergocalciferol (VITAMIN D2) [Vitamin D2] 50,000 unit PO GRACE 09/29/18 [History] Furosemide [Lasix] 20 mg PO AD 09/29/18 [History] HYDROcodone/Acet 7.5/325 mg [[place] 7.5-325 mg] 1 tab PO TID PRN 09/29/18 [History] Insulin ASPART [Novolog Flexpen] 4 - 15 units SQ TID 09/29/18 [History] Insulin Glargine,Hum.rec.anlog [Lantus Solostar] 45 unit SQ HS 09/29/18 [History] Losartan Potassium [Cozaar] 50 mg PO DAILY 09/29/18 [History] Magnesium Oxide [Magnesium] 400 mg PO DAILY 09/29/18 [History] Memantine [Namenda] 5 mg PO BID 09/29/18 [History] Multivit-Min/Iron Fum/Folic AC [Pztjm-Ayuhpja-Lirtbgxp Tablet] 1 each PO DAILY 09/29/18 [History] [place]-3/Dha/Epa/Fish Oil [Fish Oil 1,000 mg Softgel] 1 each PO BID 09/29/18 [History] Pregabalin [Lyrica] 100 mg PO BID 09/29/18 [History] Quetiapine Fumarate [Seroquel] 25 mg PO BID PRN 09/29/18 [History] Ropinirole HCl [Requip] 3 mg PO HS 09/29/18 [History] HYDROcodone/Acet 7.5/325 mg [[place] 7.5-325 mg] 1 tab PO Q6HR PRN 12/10/18 [History] cephALEXin [Keflex] 500 mg PO BID #10 capsule 12/11/18 [Rx] Allergies/Adverse Reactions: Allergy/AdvReac Type Severity Reaction Status Date / Time pravastatin Allergy Anaphylaxis Verified 12/09/18 10:52 atorvastatin AdvReac Muscle Pain Verified 12/09/18 10:52 Certification: Further, I certify that my clinical findings support that this patient is homebound (i.e. absences from home require considerable and taxing effort and are for medical reasons or hoahaoism services or infrequently or short duration when for other reasons) because: Homebound Reason: Patient requires assistance of a person or device to safely leave home Attestation: My signature below is to certify that this patient is under my care and that I, or nurse practitioner, or a physician's assistant production manager working with me, has a hyxw-[id number] encounter with this patient.
--- NOTE | 2018-12-22 10:31 | Discharge Summary ---
- NOTES TO OUTPATIENT PROVIDER Notes to Outpatient Provider: f/u with PCP within a week. 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: with termite exterminator helper use Diabetes mellitus complication detail: with nephropathy Qualified Code(s): E11.21 - Type 2 diabetes mellitus with diabetic nephropathy; Z79.4 - intermediate project manager (current) use of insulin (2) HTN (hypertension) Priority: Secondary Status: Chronic Qualifiers: Hypertension type: essential hypertension Qualified Code(s): I10 - Essential (primary) hypertension (3) UTI (urinary tract infection) Priority: Primary Status: Acute Qualifiers: Urinary tract infection type: acute cystitis Hematuria presence: with hematuria Qualified Code(s): N30.01 - Acute cystitis with hematuria (4) HCAP (healthcare-associated pneumonia) Priority: Primary Status: Acute (5) Acute respiratory failure with hypoxia Priority: Primary Status: Acute Hospital course: Ms. Munson is a 88 year old female past medical history hypertension, dementia, CKG stage III, diabetes, GINNY on CPAP. Patient was recently admitted to this facility approximate one week ago with urinary tract infection she received IV antibiotics and was discharged home on Keflex. She resides with her daughter who is her caregiver-daughter states that since she has been home she continues to experience fatigue and sleeps frequently. She normally uses a walker however has been generally weak and at times has almost fallen. Patient has been experiencing chills but no fevers. No nausea vomiting or diarrhea she has been experiencing urinary urgency and frequency. She also has nonproductive cough denies any shortness of breath or sputum production. Daughter was concerned the patient may be developing sepsis due to her weakness and called EMS. Upon arrival of EMS patient was found to be hypoxic with SPO2 in the 80s. She was placed on 2 L nasal cannula and oxygen saturations increased to 90s. In the ER chest x-ray did reveal a atelectasis/infiltrate in the left lung base as well as a small left effusion. Labss revealed leukocytosis, urinalysis indicative of UTI. Blood cultures were drawn patient was initially given vancomycin and Zosyn and azithromycin in the ER. She was admitted for further workup and evaluation of UTI/HCAP. Patient was placed on cefepime/Levaquin IV, when culture showed Klebsiella pneumoniae which was sensitive to Augmentin. Patient respiratory symptoms including cough have improved significantly with the treatment for 3 days. L eukocytosis has resolved. Patient is discharged home today with home health care, she was instructed to continue to take oral Augmentin for 10 more days. She was instructed to follow- up with PCP within a week. Discharge discussed with: patient, family Time spent discussing smoking cessation with patient: more than 10 minutes - Time Spent with Patient Total time spent providing and/or coordinating discharge services: Time spent: Greater than 30 minutes - Discharge Medications Prescriptions: New Amoxicillin/Clavulanate [Augmentin] 875 mg PO BIDWM #20 tablet Continued Memantine [Namenda] 5 mg PO BID HYDROcodone/Acet 7.5/325 mg [[place] 7.5-325 mg] 1 tab PO TID PRN PRN Reason: Pain Multivit-Min/Iron Fum/Folic AC [Oteik-Pdyeuih-Iahhtcpu Tablet] 1 each PO DAILY Magnesium Oxide [Magnesium] 400 mg PO DAILY Pregabalin [Lyrica] 100 mg PO BID Losartan Potassium [Cozaar] 50 mg PO DAILY Alendronate Sodium [Fosamax] 35 mg PO QMONTH Insulin Glargine,Hum.rec.anlog [Lantus Solostar] 45 unit SQ HS [place]-3/Dha/Epa/Fish Oil [Fish Oil 1,000 mg Softgel] 1 each PO BID Furosemide [Lasix] 20 mg PO AD Docusate [Colace] 100 mg PO BID PRN PRN Reason: Constipation Calcium Carbonate/Vitamin D3 [Calcium 500 + Vit D Caplet] 1 each PO BID Atenolol [Tenormin] 50 mg PO BID Aspirin [Lo-Dose Aspirin EC] 81 mg PO DAILY Insulin ASPART [Novolog Flexpen] 4 - 15 units SQ TID Ergocalciferol (VITAMIN D2) [Vitamin D2] 50,000 unit PO GRACE Cyanocobalamin (Vitamin B-12) [Vitamin B-12] 1,000 mcg SL MOWEFR Quetiapine Fumarate [Seroquel] 25 mg PO BID PRN PRN Reason: Agitation Ropinirole HCl [Requip] 3 mg PO HS Colesevelam HCl [Welchol] 1,875 mg PO BID HYDROcodone/Acet 7.5/325 mg [[place] 7.5-325 mg] 1 tab PO Q6HR PRN PRN Reason: Pain Discontinued cephALEXin [Keflex] 500 mg PO BID #10 capsule Home Medications: Alendronate Sodium [Fosamax] 35 mg PO QMONTH 09/29/18 [History] Aspirin [Lo-Dose Aspirin EC] 81 mg PO DAILY 09/29/18 [History] Atenolol [Tenormin] 50 mg PO BID 09/29/18 [History] Calcium Carbonate/Vitamin D3 [Calcium 500 + Vit D Caplet] 1 each PO BID 09/29/18 [History] Colesevelam HCl [Welchol] 1,875 mg PO BID 09/29/18 [History] Cyanocobalamin (Vitamin B-12) [Vitamin B-12] 1,000 mcg SL MOWEFR 09/29/18 [History] Docusate [Colace] 100 mg PO BID PRN 09/29/18 [History] Ergocalciferol (VITAMIN D2) [Vitamin D2] 50,000 unit PO GRACE 09/29/18 [History] Furosemide [Lasix] 20 mg PO AD 09/29/18 [History] HYDROcodone/Acet 7.5/325 mg [[place] 7.5-325 mg] 1 tab PO TID PRN 09/29/18 [History] Insulin ASPART [Novolog Flexpen] 4 - 15 units SQ TID 09/29/18 [History] Insulin Glargine,Hum.rec.anlog [Lantus Solostar] 45 unit SQ HS 09/29/18 [History] Losartan Potassium [Cozaar] 50 mg PO DAILY 09/29/18 [History] Magnesium Oxide [Magnesium] 400 mg PO DAILY 09/29/18 [History] Memantine [Namenda] 5 mg PO BID 09/29/18 [History] Multivit-Min/Iron Fum/Folic AC [Cpguv-Jwgpfjl-Guvdhred Tablet] 1 each PO DAILY 09/29/18 [History] [place]-3/Dha/Epa/Fish Oil [Fish Oil 1,000 mg Softgel] 1 each PO BID 09/29/18 [History] Pregabalin [Lyrica] 100 mg PO BID 09/29/18 [History] Quetiapine Fumarate [Seroquel] 25 mg PO BID PRN 09/29/18 [History] Ropinirole HCl [Requip] 3 mg PO HS 09/29/18 [History] HYDROcodone/Acet 7.5/325 mg [[place] 7.5-325 mg] 1 tab PO Q6HR PRN 12/10/18 [History] Amoxicillin/Clavulanate [Augmentin] 875 mg PO BIDWM #20 tablet 12/22/18 [Rx] Allergies/Adverse Reactions: Allergy/AdvReac Type Severity Reaction Status Date / Time pravastatin Allergy Anaphylaxis Verified 12/09/18 10:52 atorvastatin AdvReac Muscle Pain Verified 12/09/18 10:52 Date of admission: 12/21/18 18:14 Primary care physician: Estephania Lopes DO Consults: 12/22/18 08:43 Consult to Nurse Navigator [CONS] Routine Comment: pneumonia Anticipated date of discharge: 12/22/18 - Constitutional Vitals: Temp Pulse Resp BP Pulse Ox 98.7 F 63 18 116/63 93 12/22/18 07:13 12/22/18 07:13 12/22/18 07:13 12/22/18 07:13 12/22/18 07:13 General appearance: Present: A&O X 3 Exam: Skin: Free of rash and discoloration. Eyes: Sclera is white. There is no discharge from eyes. ENMT: Oral/pharyngeal mucosa is normal in appearance. There is no discharge from nose or ears. Respiratory: Breath sounds diminished in the bases-no wheezing or rales noted CV: Heart is regular with no gallop or murmur. GI: Abdomen is flat and soft with no palpable mass or visceromegaly. : There is no tenderness in patient's flanks bilaterally. Neuro exam: He has good strength in upper and lower extremities. He has normal eye movements. Psychiatric: He has normal affect. His thought process is appropriate to the situation. - Patient Status Disposition: Home Health Service Condition: Undetermined Functional capacity at discharge: uses cane/walker Overall status at discharge: patient is progressing back to baseline - Discharge Instructions Follow Up With: Estephania Lopes DO [Primary Care Provider] - - Diet and Activity Activity: resume usual activities as tolerated Diet: diabetic diet, low fat, low cholesterol, low salt diet
--- NOTE | 2018-12-23 06:27 | Electrocardiograph Report ---
[facility] Test Date: 2018-12-20 Pat Name: Iris Munson Department: EXAM6 Room: 3A21 Gender: F Tipple Engineer: : [id number] Requested By: Parth Alejandre Order Number: [id number] Reading MD: Duke Khan Measurements Intervals [place] Rate: 87 P: 58 MT: 255 QRS: -16 QRSD: 105 T: 64 QT: 379 QTc: 456 Interpretive Statements Sinus rhythm Prolonged MT interval Probable left ventricular hypertrophy Electronically Signed On 12-23-2018 6:25:39 EDT by Duke Khan
== END 2018-12-22 13:07 | disposition home health service (06) | DRG 193 ==
LOC: EMEROOARM 09:12 → 3ANU 09:12
PROVIDERS: ADMIT Internal Medicine Nephrology; ATTEND Internal Medicine Nephrology

== ENCOUNTER 2019-03-20 18:41 | Observation (INO) ==
--- NOTE | 2019-03-20 19:35 | Emergency Department Note ---
Disposition Clinical Impression: Confusion, Weakness, Acute kidney injury Disposition: Still a Patient Condition: Fair Referrals: Estephania Lopes DO [Primary Care Provider] - Forms: ED Satisfaction Letter Time of Disposition: 21:44 General Adult HPI - General Stated complaint: "UTI",weak, AMS Time Seen by Provider: 03/20/19 18:57 Source: EMS - History of Present Illness Pain Scale: 0 - Related Data Home Medications Medication Instructions Recorded Confirmed Alendronate Sodium [Fosamax] 35 mg PO MO 09/29/18 12/22/18 Atenolol [Tenormin] 50 mg PO BID 09/29/18 12/22/18 Calcium Carbonate/Vitamin D3 1 tab PO BID 09/29/18 12/22/18 [Calcium 500 + Vit D Caplet] Colesevelam HCl [Welchol] 1,875 mg PO BID 09/29/18 12/22/18 Cyanocobalamin (Vitamin B-12) 1,000 mcg SL 3XW 09/29/18 12/22/18 [Vitamin B-12] Docusate [Colace] 100 mg PO BID 09/29/18 12/22/18 Ergocalciferol (VITAMIN D2) 50,000 unit PO MO 09/29/18 12/22/18 [Vitamin D2] Furosemide [Lasix] 20 mg PO BID 09/29/18 12/09/18 Insulin ASPART [Novolog Flexpen] 0 - 15 units SQ TIDWM 09/29/18 12/22/18 Insulin Glargine,Hum.rec.anlog 45 unit SQ HS 09/29/18 12/22/18 [Lantus Solostar] Losartan Potassium [Cozaar] 100 mg PO DAILY 09/29/18 12/22/18 Magnesium Oxide [Magnesium] 400 mg PO BID 09/29/18 12/22/18 Memantine [Namenda] 5 mg PO BID 09/29/18 12/22/18 Multivit-Min/Iron Fum/Folic AC 1 tab PO DAILY 09/29/18 12/22/18 [Iyhll-Wnygbnz-Zhocqhac Tablet] [place]-3/Dha/Epa/Fish Oil [Fish Oil 1 cap PO BID 09/29/18 12/22/18 1,000 mg Softgel] Pregabalin [Lyrica] 100 mg PO BID 09/29/18 12/22/18 Quetiapine Fumarate [Seroquel] 12.5 - 25 mg PO BID PRN 09/29/18 12/22/18 Ropinirole HCl [Requip] 3 mg PO HS 09/29/18 12/22/18 HYDROcodone/Acet 7.5/325 mg [[place] 1 tab PO TID PRN 12/10/18 12/22/18 7.5-325 mg] Aspirin [Adult Aspirin Regimen] 81 mg PO DAILY 12/22/18 12/22/18 Furosemide [Lasix] 20 mg PO DAILY 12/22/18 Previous Rx's Medication Instructions Recorded Amoxicillin/Clavulanate [Augmentin] 875 mg PO BIDWM #20 tablet 12/22/18 Allergies Allergy/AdvReac Type Severity Reaction Status Date / Time pravastatin Allergy Anaphylaxis Verified 12/22/18 11:03 atorvastatin AdvReac LEG CRAMPS Verified 12/22/18 11:03 Past Medical History - Past Medical History Medical history: Reports: dementia, diabetes, hypertension, osteoporosis, renal disease Surgical history: Reports: cholecystectomy, orthopedic, other (Left shoulder) Psychiatric history: Reports: no psych history - Social History Smoking Status: Former smoker Smokeless Tobacco Status: No Alcohol use: Reports: none Drug use: Reports: none Physical Exam - General General appearance: alert, in no apparent distress Course Vital Signs Temperature 98.6 F 03/20/19 19:07 Pulse Rate 67 03/20/19 19:07 Respiratory Rate 14 03/20/19 19:07 Blood Pressure 143/89 03/20/19 19:07 O2 Sat by Pulse Oximetry 94 03/20/19 19:07 Temperature 98.6 F 03/20/19 19:07 Pulse Rate 67 03/20/19 19:07 Respiratory Rate 14 03/20/19 19:07 Blood Pressure 143/89 03/20/19 19:07 O2 Sat by Pulse Oximetry 98 03/20/19 20:45 Oxygen Delivery Oxygen Delivery Room Air Medical Decision Making - Lab Data Result diagrams: 03/20/19 19:35 03/20/19 19:35 Lab Results 03/20/19 03/20/19 03/20/19 Range/Units 19:25 19:35 19:35 WBC 7.7 (4.3-11.1) K/mcL RBC 3.88 (3.82-4.97) M/mcL Hgb 12.0 (11.5-15.4) g/dL Hct 36.8 (35.3-44.9) % MCV 94.8 (83.0-100.0) fL MCH 30.9 (28.0-33.3) pg MCHC 32.6 (31.6-35.5) g/dL RDW 14.0 (11.5-14.5) % Plt Count 179 (140-400) K/mcL MPV 10.8 (9.4-12.4) fL Immature Gran % 0.4 (0-4) % Seg Neutrophils % 59.2 % Lymphocytes % 28.8 % Monocytes % 7.6 % Eosinophils % 3.5 % Basophils % 0.5 % Neutrophils # 4.6 (1.6-8.9) K/mcL Lymphocytes # 2.2 (0.6-4.6) K/mcL Monocytes # 0.6 (0.0-1.3) K/mcL Eosinophils # 0.3 (0.0-0.6) K/mcL Basophils # 0.0 (0.0-0.2) K/mcL PT 11.0 (9.4-12.1) Seconds INR 1.0 APTT 28.1 (26.0-36.0) Seconds Sodium (136-145) mEq/L Potassium (3.5-5.1) mEq/L Chloride (98-107) mEq/L Carbon Dioxide (23-29) mEq/L BUN (8-23) mg/dL Creatinine (0.60-1.20) mg/dL Est GFR ( Amer) (> 60) Est GFR (Non-Af Amer) (> 60) BUN/Creatinine Ratio (6-26) Glucose (70-105) mg/dL POC Glucose 282 H (70-99) mg/dL Calculated Osmolality (280-300) Lactic Acid (0.5-2.2) mmol/L Calcium (8.6-10.3) mg/dL Phosphorus (2.7-4.5) mg/dL Magnesium (1.6-2.6) mg/dL Total Bilirubin (0.3-1.0) mg/dL Direct Bilirubin (0.0-0.2) mg/dL Indirect Bilirubin (0.0-1.2) mg/dL AST (13-39) Units/L ALT (7-52) Units/L Alkaline Phosphatase (34-104) Units/L Troponin I (< 0.04) ng/mL Serum Total Protein (6.4-8.9) g/dL Albumin (3.5-5.7) g/dL Globulin (2.4-3.5) g/dL Albumin/Globulin Ratio (1.1-2.2) Urine Color (Yellow) Urine Clarity (Clear) Urine pH (5.0-8.0) pH Units Ur Specific Admire (1.010-1.025) Urine Protein (Neg-Trace) mg/dL Urine Glucose (UA) (Normal) mg/dL Urine Ketones (Negative) mg/dL Urine Blood (Negative) Urine Nitrite (Negative) Urine Bilirubin (Negative) Urine Urobilinogen (Normal) mg/dL Ur Leukocyte Esterase (Negative) Urine Microscopic RBC (0-3) per hpf Urine Microscopic WBC (0-3) per hpf Ur Squamous Epith Cells (None-Few) per lpf Urine Bacteria (None-Few) per hpf Hyaline Casts (None-Few) per lpf Ur Culture Indicated? (NO) 03/20/19 03/20/19 03/20/19 Range/Units 19:35 19:35 20:38 WBC (4.3-11.1) K/mcL RBC (3.82-4.97) M/mcL Hgb (11.5-15.4) g/dL Hct (35.3-44.9) % MCV (83.0-100.0) fL MCH (28.0-33.3) pg MCHC (31.6-35.5) g/dL RDW (11.5-14.5) % Plt Count (140-400) K/mcL MPV (9.4-12.4) fL Immature Gran % (0-4) % Seg Neutrophils % % Lymphocytes % % Monocytes % % Eosinophils % % Basophils % % Neutrophils # (1.6-8.9) K/mcL Lymphocytes # (0.6-4.6) K/mcL Monocytes # (0.0-1.3) K/mcL Eosinophils # (0.0-0.6) K/mcL Basophils # (0.0-0.2) K/mcL PT (9.4-12.1) Seconds INR APTT (26.0-36.0) Seconds Sodium 140 (136-145) mEq/L Potassium 4.3 (3.5-5.1) mEq/L Chloride 103 (98-107) mEq/L Carbon Dioxide 29 (23-29) mEq/L BUN 30 H (8-23) mg/dL Creatinine 1.43 H (0.60-1.20) mg/dL Est GFR ( Amer) 42 L (> 60) Est GFR (Non-Af Amer) 35 L (> 60) BUN/Creatinine Ratio 21 (6-26) Glucose 272 H (70-105) mg/dL POC Glucose (70-99) mg/dL Calculated Osmolality 306 H (280-300) Lactic Acid 1.5 (0.5-2.2) mmol/L Calcium 9.7 (8.6-10.3) mg/dL Phosphorus 3.7 (2.7-4.5) mg/dL Magnesium 1.7 (1.6-2.6) mg/dL Total Bilirubin 0.3 (0.3-1.0) mg/dL Direct Bilirubin 0.1 (0.0-0.2) mg/dL Indirect Bilirubin 0.2 (0.0-1.2) mg/dL AST 14 (13-39) Units/L ALT 13 (7-52) Units/L Alkaline Phosphatase 57 (34-104) Units/L Troponin I < 0.03 (< 0.04) ng/mL Serum Total Protein 6.6 (6.4-8.9) g/dL Albumin 3.8 (3.5-5.7) g/dL Globulin 2.8 (2.4-3.5) g/dL Albumin/Globulin Ratio 1.4 (1.1-2.2) Urine Color Yellow (Yellow) Urine Clarity Clear (Clear) Urine pH 5.0 (5.0-8.0) pH Units Ur Specific [place] 1.021 (1.010-1.025) Urine Protein 30 H (Neg-Trace) mg/dL Urine Glucose (UA) Normal (Normal) mg/dL Urine Ketones Negative (Negative) mg/dL Urine Blood Negative (Negative) Urine Nitrite Negative (Negative) Urine Bilirubin Negative (Negative) Urine Urobilinogen Normal (Normal) mg/dL Ur Leukocyte Esterase Negative (Negative) Urine Microscopic RBC 3-5 H (0-3) per hpf Urine Microscopic WBC 0-3 (0-3) per hpf Ur Squamous Epith Cells Many H (None-Few) per lpf Urine Bacteria None Seen (None-Few) per hpf Hyaline Casts Moderate H (None-Few) per lpf Ur Culture Indicated? NO (NO) Attestation Statement - Attestation Attestation: I examined this patient and my medical decision-making was reviewed with the Resident Physician. I agree with the documented findings, disposition and treatment plan as described except to the extent set forth below. Patient to the ED with a chief complaint of confusion and weakness. Patient was with her daughter who takes care of her. She has Alzheimer's dementia. She is requiring more assistance to get out of the chair. She also seems more confused. Concern for UTI as she has had them in the past. On examination she is awake alert and interacts appropriately. Abdomen is soft. Lungs are clear. Plan. Septic workup. Her vital signs are stable and she is not tachycardic or febrile. CT head. EKG reviewed with the resident. Septic workup is does not have a UTI, but we will continue the Cipro. She does have an acute kidney injury likely some dehydration. She is given IV fluids. Family is concerned about taking her home as she is so weak. We will admit. Chest X-Ray 03/20/19 19:23 IMPRESSION: Probable small volume left pleural effusion with left basilar relaxation atelectasis versus pneumonitis. Calcific atherosclerotic disease aorta. Sequela from old granulomatous disease. D/ / Shane Rodriguez / Shane Rodriguez Interpreting Provider: Shane Rodriguez Head CT 03/20/19 19:25 IMPRESSION: No acute intracranial abnormality. Stable exam compared to recent prior study. D/ / Shane Rodriguez / Shane Rodriguez Interpreting Provider: Shane Rodriguez
[2019-03-20 19:52] LABS: Basophils % 0.5 %; Eosinophils # 0.3 K/mcL (0.0-0.6); Eosinophils % 3.5 %; Hematocrit 36.8 % (35.3-44.9); Immature Granulocytes % 0.4 % (0-4); Lymphocytes # 2.2 K/mcL (0.6-4.6); Lymphocytes % 28.8 %; Mean Corpuscular HGB Conc 32.6 g/dL (31.6-35.5); Mean Corpuscular Hemoglobin 30.9 pg (28.0-33.3); Mean Corpuscular Volume 94.8 fL (83.0-100.0); Mean Platelet Volume 10.8 fL (9.4-12.4); Monocytes # 0.6 K/mcL (0.0-1.3); Monocytes % 7.6 %; Neutrophils # 4.6 K/mcL (1.6-8.9); Platelet Count 179 K/mcL (140-400); Red Blood Count 3.88 M/mcL (3.82-4.97); Segmented Neutrophils % 59.2 %; White Blood Count 7.7 K/mcL (4.3-11.1)
[2019-03-20 20:02] LABS: Activated Partial Thrombo Time 28.1 Seconds (26.0-36.0)
--- NOTE | 2019-03-20 20:20 | Emergency Department Note ---
Disposition Clinical Impression: Confusion, Weakness, Acute kidney injury Disposition: Still a Patient Condition: Fair Time of Disposition: 21:48 General Adult HPI - General Chief complaint: ED Altered Mental Status Stated complaint: "UTI",weak, AMS Time Seen by Provider: 03/20/19 18:57 Source: EMS Nursing Notes Reviewed: Yes Vital Signs Reviewed: Yes - History of Present Illness HPI Narrative: 88-year-old female presents from home with family bedside for evaluation of weakness in infusion. Patient lives at home with her daughter who is primary metal expediter. Patient's son is also bedside who is the patient's secondary metal expediter to assist the daughter. At baseline, patient has Alzheimer's and ambulates with walker. Patient has increased confusion described as not recognizing her son. She has increased weakness described as requiring two- person full assist to transition out of chair onto the EMS cot. Patient's daughter is concerned as well as the patient is somnolent; she is falling asleep during conversation which is also new to her. Patient has a history of UTI and pneumonia which have also progressed towards sepsis. Patient is currently being treated for UTI with Cipro. Last dose was this evening just prior to arrival. PMH: Alzheimer's, insulin dependent diabetes mellitus, hypertension, peripheral neuropathy next ROS: Positive: Weakness, confusion Negative: Fever, chills, nausea, vomiting, chest pains, palpitations, dyspnea, diaphoresis, unusual back pain, changes in urination or bowel habits. No falls. Pain Scale: 0 - Related Data Home Medications Medication Instructions Recorded Confirmed Alendronate Sodium [Fosamax] 35 mg PO MO 09/29/18 03/20/19 Atenolol [Tenormin] 50 mg PO BID 09/29/18 03/20/19 Calcium Carbonate/Vitamin D3 1 tab PO BID 09/29/18 03/20/19 [Calcium 500 + Vit D Caplet] Colesevelam HCl [Welchol] 3 tab PO BID 09/29/18 03/20/19 Cyanocobalamin (Vitamin B-12) 1,000 mcg SL 3XW 09/29/18 03/20/19 [Vitamin B-12] Docusate [Colace] 100 mg PO BID 09/29/18 03/20/19 Furosemide [Lasix] 20 mg PO BID 09/29/18 03/20/19 Insulin ASPART [Novolog Flexpen] 10 - 20 units SQ TIDWM 09/29/18 03/20/19 Insulin Glargine,Hum.rec.anlog 42 unit SQ HS 09/29/18 03/20/19 [Lantus Solostar] Losartan Potassium [Cozaar] 100 mg PO DAILY 09/29/18 03/20/19 Magnesium Oxide [Magnesium] 400 mg PO ONCE 09/29/18 03/20/19 Memantine [Namenda] 5 mg PO BID 09/29/18 03/20/19 Multivit-Min/Iron Fum/Folic AC 1 tab PO DAILY 09/29/18 03/20/19 [Flqbh-Xledyrl-Vvknzbeh Tablet] [place]-3/Dha/Epa/Fish Oil [Fish Oil 1 cap PO BID 09/29/18 03/20/19 1,000 mg Softgel] Pregabalin [Lyrica] 100 mg PO BID 09/29/18 03/20/19 Quetiapine Fumarate [Seroquel] 12.5 - 25 mg PO BID PRN 09/29/18 03/20/19 Ropinirole HCl [Requip] 3 mg PO HS 09/29/18 03/20/19 HYDROcodone/Acet 7.5/325 mg [[place] 1 tab PO TID PRN 12/10/18 03/20/19 7.5-325 mg] Aspirin [Adult Aspirin Regimen] 81 mg PO DAILY 12/22/18 03/20/19 Furosemide [Lasix] 20 mg PO DAILY 12/22/18 03/20/19 Ciprofloxacin [Cipro] 500 mg PO BID 03/20/19 03/20/19 Clotrimazole/Betamethasone Dip 60 gm .ROUTE BID 03/20/19 03/20/19 [Clotrimazole-Betamethasone Lot] Allergies Allergy/AdvReac Type Severity Reaction Status Date / Time pravastatin Allergy Anaphylaxis Verified 12/22/18 11:03 atorvastatin AdvReac LEG CRAMPS Verified 12/22/18 11:03 All systems ED: reviewed and negative except as stated. Review of Systems: As Per HPI Past Medical History - Past Medical History Medical history: Reports: dementia, diabetes, hypertension, osteoporosis, renal disease Surgical history: Reports: cholecystectomy, orthopedic, other (Left shoulder) Psychiatric history: Reports: no psych history - Social History Smoking Status: Former smoker Smokeless Tobacco Status: No Alcohol use: Reports: none Drug use: Reports: none Physical Exam Vital Signs Reviewed General: Patient is alert, oriented to self and location([facility]). She is not located 2 months which is her baseline per daughter bedside. She is in n o acute distress. She will arouse to verbal stimuli but also sleep during conversation. Head: atraumatic, normocephalic Eye: normal appearance, PERRL, EOMI, no scleral icterus, no conjunctival inject ion ENT: mucous membranes moist, normal external ear exam Neck: normal inspection, trachea midline, full ROM Chest: normal inspection, symmetric chest rise Respiratory: Good respiratory effort. Bilateral breath sounds are clear without wheezing, crackles, or rhonchi. Cardiovascular: Regular rate and rhythm. No clicks, rubs, gallops, or murmors. Normal heart sounds. Lateral radial pulses 2/4 and equal. No pedal edema. Abdomen: Bowel sounds present normoactive. Abdomen is soft, nondistended. Mild suprapubic tenderness. No guarding or rebound. Musculoskeletal: Spontaneously moving all extremities. Skin: warm, dry, intact. Neuro: GCS 14 (E3, V5, M6). Sensation light touch intact and equal bilateral upper and lower extremity his. Strength 4/5 and equal in bilateral upper and lower extremity is. No surgery of speech. No facial asymmetry. Psych: Patient's affect is appropriate for situation. - General General appearance: alert, in no apparent distress Course Course Narrative: EKG dated 03/20/19 at 20:36 interpreted as sinus rhythm with a rate of 65. First-degree AV block with ME 269. QRS 109, QTC 453. Left axis. Nonspecific ST-T changes. Compared to previous EKG dated 12/20/2018 showing no acute ischemic changes or comparison; first degree AV block is present on comparison EKG. Serum hematology shows no leukocytosis or leukocytopenia. Patient has no anemia. Serum chemistry shows normal electrolytes. Patient does have elevated creatinine of 1.48 above her baseline of the 0.9 to 1-teens; she has acute kidney injury. She is corresponding elevation BUN inferring dehydration. Will provide gentle fluids. Next Urinalysis is not concerning for UTI. Patient is currently being treated for UTI with oral Cipro. Last dose was this evening. Most recent microbiology from 5 days ago showed Klebsiella pneumonia and the urine. CT head is unremarkable. X-ray chest is unremarkable. Radiology impression shows atelectasis versus pneumonitis; clinically suspect atelectasis. I discussed the above with the family. Patient is asleep but arousable to verbal and tactile stimuli. Patient's primary caregiver, her daughter, is not comfortable going home with the patient. She states patient was too weak to raise a cup of water to drink on her own. She was too weak to stand up to go the bathroom on her own. I discussed the above of the abdomen and hospitals, Dr. Hooper, who agrees to see the patient for continued evaluation monitoring for his confusion, weakness, acute kidney injury. Chest X-Ray 03/20/19 19:23 IMPRESSION: Probable small volume left pleural effusion with left basilar relaxation atelectasis versus pneumonitis. Calcific atherosclerotic disease aorta. Sequela from old granulomatous disease. D/ / Shane Rodriguez / Shane Rodriguez Interpreting Provider: Shane Rodriguez Head CT 03/20/19 19:25 IMPRESSION: No acute intracranial abnormality. Stable exam compared to recent prior study. D/ / Shane Rodriguez / Shane Rodriguez Interpreting Provider: Shane Rodriguez Vital Signs Temperature 98.6 F 03/20/19 19:07 Pulse Rate 67 03/20/19 19:07 Respiratory Rate 14 03/20/19 19:07 Blood Pressure 143/89 03/20/19 19:07 O2 Sat by Pulse Oximetry 94 03/20/19 19:07 Temperature 97.6 F 03/20/19 23:17 Pulse Rate 64 03/20/19 23:17 Respiratory Rate 16 03/20/19 23:17 Blood Pressure 149/56 03/20/19 23:17 O2 Sat by Pulse Oximetry 99 03/20/19 23:17 Oxygen Delivery Oxygen Delivery Nasal Cannula Medical Decision Making - Lab Data Result diagrams: 03/20/19 19:35 03/20/19 19:35 Lab Results 03/20/19 03/20/19 03/20/19 Range/Units 19:25 19:35 19:35 WBC 7.7 (4.3-11.1) K/mcL RBC 3.88 (3.82-4.97) M/mcL Hgb 12.0 (11.5-15.4) g/dL Hct 36.8 (35.3-44.9) % MCV 94.8 (83.0-100.0) fL MCH 30.9 (28.0-33.3) pg MCHC 32.6 (31.6-35.5) g/dL RDW 14.0 (11.5-14.5) % Plt Count 179 (140-400) K/mcL MPV 10.8 (9.4-12.4) fL Immature Gran % 0.4 (0-4) % Seg Neutrophils % 59.2 % Lymphocytes % 28.8 % Monocytes % 7.6 % Eosinophils % 3.5 % Basophils % 0.5 % Neutrophils # 4.6 (1.6-8.9) K/mcL Lymphocytes # 2.2 (0.6-4.6) K/mcL Monocytes # 0.6 (0.0-1.3) K/mcL Eosinophils # 0.3 (0.0-0.6) K/mcL Basophils # 0.0 (0.0-0.2) K/mcL PT 11.0 (9.4-12.1) Seconds INR 1.0 APTT 28.1 (26.0-36.0) Seconds Sodium (136-145) mEq/L Potassium (3.5-5.1) mEq/L Chloride (98-107) mEq/L Carbon Dioxide (23-29) mEq/L BUN (8-23) mg/dL Creatinine (0.60-1.20) mg/dL Est GFR ( Amer) (> 60) Est GFR (Non-Af Amer) (> 60) BUN/Creatinine Ratio (6-26) Glucose (70-105) mg/dL POC Glucose 282 H (70-99) mg/dL Calculated Osmolality (280-300) Lactic Acid (0.5-2.2) mmol/L Calcium (8.6-10.3) mg/dL Phosphorus (2.7-4.5) mg/dL Magnesium (1.6-2.6) mg/dL Total Bilirubin (0.3-1.0) mg/dL Direct Bilirubin (0.0-0.2) mg/dL Indirect Bilirubin (0.0-1.2) mg/dL AST (13-39) Units/L ALT (7-52) Units/L Alkaline Phosphatase (34-104) Units/L Troponin I (< 0.04) ng/mL Serum Total Protein (6.4-8.9) g/dL Albumin (3.5-5.7) g/dL Globulin (2.4-3.5) g/dL Albumin/Globulin Ratio (1.1-2.2) Urine Color (Yellow) Urine Clarity (Clear) Urine pH (5.0-8.0) pH Units Ur Specific [place] (1.010-1.025) Urine Protein (Neg-Trace) mg/dL Urine Glucose (UA) (Normal) mg/dL Urine Ketones (Negative) mg/dL Urine Blood (Negative) Urine Nitrite (Negative) Urine Bilirubin (Negative) Urine Urobilinogen (Normal) mg/dL Ur Leukocyte Esterase (Negative) Urine Microscopic RBC (0-3) per hpf Urine Microscopic WBC (0-3) per hpf Ur Squamous Epith Cells (None-Few) per lpf Urine Bacteria (None-Few) per hpf Hyaline Casts (None-Few) per lpf Ur Culture Indicated? (NO) 03/20/19 03/20/19 03/20/19 Range/Units 19:35 19:35 20:38 WBC (4.3-11.1) K/mcL RBC (3.82-4.97) M/mcL Hgb (11.5-15.4) g/dL Hct (35.3-44.9) % MCV (83.0-100.0) fL MCH (28.0-33.3) pg MCHC (31.6-35.5) g/dL RDW (11.5-14.5) % Plt Count (140-400) K/mcL MPV (9.4-12.4) fL Immature Gran % (0-4) % Seg Neutrophils % % Lymphocytes % % Monocytes % % Eosinophils % % Basophils % % Neutrophils # (1.6-8.9) K/mcL Lymphocytes # (0.6-4.6) K/mcL Monocytes # (0.0-1.3) K/mcL Eosinophils # (0.0-0.6) K/mcL Basophils # (0.0-0.2) K/mcL PT (9.4-12.1) Seconds INR APTT (26.0-36.0) Seconds Sodium 140 (136-145) mEq/L Potassium 4.3 (3.5-5.1) mEq/L Chloride 103 (98-107) mEq/L Carbon Dioxide 29 (23-29) mEq/L BUN 30 H (8-23) mg/dL Creatinine 1.43 H (0.60-1.20) mg/dL Est GFR ( Amer) 42 L (> 60) Est GFR (Non-Af Amer) 35 L (> 60) BUN/Creatinine Ratio 21 (6-26) Glucose 272 H (70-105) mg/dL POC Glucose (70-99) mg/dL Calculated Osmolality 306 H (280-300) Lactic Acid 1.5 (0.5-2.2) mmol/L Calcium 9.7 (8.6-10.3) mg/dL Phosphorus 3.7 (2.7-4.5) mg/dL Magnesium 1.7 (1.6-2.6) mg/dL Total Bilirubin 0.3 (0.3-1.0) mg/dL Direct Bilirubin 0.1 (0.0-0.2) mg/dL Indirect Bilirubin 0.2 (0.0-1.2) mg/dL AST 14 (13-39) Units/L ALT 13 (7-52) Units/L Alkaline Phosphatase 57 (34-104) Units/L Troponin I < 0.03 (< 0.04) ng/mL Serum Total Protein 6.6 (6.4-8.9) g/dL Albumin 3.8 (3.5-5.7) g/dL Globulin 2.8 (2.4-3.5) g/dL Albumin/Globulin Ratio 1.4 (1.1-2.2) Urine Color Yellow (Yellow) Urine Clarity Clear (Clear) Urine pH 5.0 (5.0-8.0) pH Units Ur Specific [place] 1.021 (1.010-1.025) Urine Protein 30 H (Neg-Trace) mg/dL Urine Glucose (UA) Normal (Normal) mg/dL Urine Ketones Negative (Negative) mg/dL Urine Blood Negative (Negative) Urine Nitrite Negative (Negative) Urine Bilirubin Negative (Negative) Urine Urobilinogen Normal (Normal) mg/dL Ur Leukocyte Esterase Negative (Negative) Urine Microscopic RBC 3-5 H (0-3) per hpf Urine Microscopic WBC 0-3 (0-3) per hpf Ur Squamous Epith Cells Many H (None-Few) per lpf Urine Bacteria None Seen (None-Few) per hpf Hyaline Casts Moderate H (None-Few) per lpf Ur Culture Indicated? NO (NO)
[2019-03-20 20:24] LABS: Alanine Aminotransferase 13 Units/L (7-52); Albumin 3.8 g/dL (3.5-5.7); Albumin/Globulin Ratio 1.4 (1.1-2.2); Alkaline Phosphatase 57 Units/L (34-104); Aspartate Amino Transferase 14 Units/L (13-39); BUN/Creatinine Ratio 21 (6-26); Bilirubin,Direct 0.1 mg/dL (0.0-0.2); Bilirubin,Indirect 0.2 mg/dL (0.0-1.2); Bilirubin,Total 0.3 mg/dL (0.3-1.0); Blood Urea Nitrogen 30 mg/dL (8-23); Calcium 9.7 mg/dL (8.6-10.3); Carbon Dioxide 29 mEq/L (23-29); Chloride 103 mEq/L (98-107); Globulin 2.8 g/dL (2.4-3.5); Glucose 272 mg/dL (70-105); Magnesium 1.7 mg/dL (1.6-2.6); Osmolality,Calculated 306 (280-300); Phosphorous 3.7 mg/dL (2.7-4.5); Potassium 4.3 mEq/L (3.5-5.1); Sodium 140 mEq/L (136-145); Total Protein 6.6 g/dL (6.4-8.9); Troponin I < 0.03 ng/mL (< 0.04); eGFR For African Americans 42 (> 60); eGFR For Non-African Americans 35 (> 60)
[2019-03-20] MEDS ORDERED: 0.9 % Sodium Chloride 1,000 ML IVC ONE ×2 (20:51→21:40)
[2019-03-20 20:54] LABS: Bilirubin,Urine Negative (Negative); Blood,Urine Negative (Negative); Clarity,Urine Clear (Clear); Color,Urine Yellow (Yellow); Glucose,Urine (UA) Normal (Normal); Ketones,Urine Negative (Negative); Leukocyte Esterase,Urine Negative (Negative); Nitrite,Urine Negative (Negative); Protein,Urine 30 mg/dL (Neg-Trace); Specific Gravity,Urine 1.021 (1.010-1.025); Urobilinogen,Urine Normal (Normal)
[2019-03-20 20:56] LABS: Bacteria,Urine None Seen per hpf (None-Few); Squamous Epithelial Cell,Urine Many per lpf (None-Few); WBC,Urine 0-3 per hpf (0-3)
[2019-03-20 21:04] LABS: Hyaline Casts,Urine Moderate per lpf (None-Few)
[2019-03-21] MEDS ORDERED: Naloxone 0.4 MG/ML INJ IVP PRN (05:14)
[2019-03-21] MEDS ORDERED: *HR* Dextrose 50 % in Water (Syg) 50 ML SYRINGE IVP PRN (05:19)
[2019-03-21] MEDS ORDERED: Dextrose Gel 15 GM/37.5 ML TUBE PO PRN ×2 (05:19)
[2019-03-21] MEDS ORDERED: D5% in Water 1,000 ML IVC PRN (05:19)
--- NOTE | 2019-03-21 05:22 | Internal Med History&Physical ---
Date of Encounter: 03/21/19 Time of Encounter: 04:42 Internal Medicine - H&P: HPI Chief complaint: UTI, weakness Admitted From: Emergency Dept Plans for Post Hospital Care: Home History of present illness: Ms. Munson is a 88 year old female Patient presented to the emergency department with weakness and increased confu mohinder. She has a recent history of urinary tract infection and was placed on ciprofloxacin a few days ago. She lives at home with her daughter normally who is her primary resident care assistant. Her son is at bedside now and reports that she has been more confused and having difficulty with coordination. He says that she has not had issues with walking before but now she has difficulty ambulating. She is also having difficulty feeding herself which is not normal for her. She has been more lethargic over the last few days as well. When they initially started treatment for her urinary tract infection she was improving but then she suddenly started to take a turn. Emergency department vital signs are within normal limits CBC unremarkable BMP creatinine elevated at 1.43, glucose 272. Lactic acid 1.5 Initial troponin undetectable Liver function tests unremarkable Urinalysis not indicative of infection however previous urine culture grew out Klebsiella pneumonia. Chest x-ray shows probable small volume left pleural effusion with left basilar atelectasis versus pneumonitis Head CT showed no acute intracranial abnormality EKG showed normal sinus rhythm, rate 65, QTC 453 ms. No ischemic changes. In the emergency department patient received a 1 L bolus of IV fluids, and she was admitted to the hospital for further management. Upon my evaluation, patient is resting comfortably in hospital bed in no acute distress. She responds to questions and follows commands. Her son indicates that she is also been more alert and less confused. She denies chest pain, abdominal pain, nausea, vomiting, diarrhea and constipation. She denies shortness of breath. Her only complaint is some mild back pain which she has at baseline. Her son who is at bedside states that he has had her up out of bed an d she still a little bit weak on her feet. She is DNR/DNI, though the son wanted to clarify with the DPOA who is the patient's daughter. Past Med Surg Social Fam HX - Past Medical History Medical history: dementia, diabetes, hypertension, osteoporosis, renal disease Additional medical history: neuropathy, spinal stenosis, alzheimers, stage 3 kidney dx, FREQ. UTI'S Psychiatric history: no psych history - Past Surgical History Surgical History: cholecystectomy Additional surgical history: Tubal ligation - Social History Smoking Status: Former smoker Smokeless Tobacco Status: No Alcohol use: none Drug use: none - Family History Sister Hx Family Cancer: Yes (lung) Hx Family Endocrine Disorder: Yes (DM) Mother Living Status: Hx Family Cardiac Disorders: Yes (CHF) Brother Family Member Ethnicity: Non- Living Status: Hx Family Cardiac Disorders: No Hx Family Respiratory Disorders: No Hx Family Cancer: Yes (cancer (prostate)) Hx Family GI Disorders: No Hx Family Endocrine Disorder: Yes (DM) Hx Family Neuromuscular Disorders: No Hx Family Neurologic Disorders: No Hx Family HEENT Disorders: No Hx Family Autoimmune Disorders: No Father Hx Family Cancer: Yes (Throat) Internal Medicine - H&P: Meds Alendronate Sodium [Fosamax] 35 mg PO MO 09/29/18 [History] Atenolol [Tenormin] 50 mg PO BID 09/29/18 [History] Calcium Carbonate/Vitamin D3 [Calcium 500 + Vit D Caplet] 1 tab PO BID 09/29/18 [History] Colesevelam HCl [Welchol] 3 tab PO BID 09/29/18 [History] Cyanocobalamin (Vitamin B-12) [Vitamin B-12] 1,000 mcg SL 3XW 09/29/18 [History] Docusate [Colace] 100 mg PO BID 09/29/18 [History] Furosemide [Lasix] 20 mg PO BID 09/29/18 [History] Insulin ASPART [Novolog Flexpen] 10 - 20 units SQ TIDWM 09/29/18 [History] Insulin Glargine,Hum.rec.anlog [Lantus Solostar] 42 unit SQ HS 09/29/18 [History] Losartan Potassium [Cozaar] 100 mg PO DAILY 09/29/18 [History] Magnesium Oxide [Magnesium] 400 mg PO ONCE 09/29/18 [History] Memantine [Namenda] 5 mg PO BID 09/29/18 [History] Multivit-Min/Iron Fum/Folic AC [Aoomh-Xzpkgll-Kgxqwpes Tablet] 1 tab PO DAILY 09/29/18 [History] [place]-3/Dha/Epa/Fish Oil [Fish Oil 1,000 mg Softgel] 1 cap PO BID 09/29/18 [History] Pregabalin [Lyrica] 100 mg PO BID 09/29/18 [History] Quetiapine Fumarate [Seroquel] 12.5 - 25 mg PO BID PRN 09/29/18 [History] Ropinirole HCl [Requip] 3 mg PO HS 09/29/18 [History] HYDROcodone/Acet 7.5/325 mg [[place] 7.5-325 mg] 1 tab PO TID PRN 12/10/18 [History] Aspirin [Adult Aspirin Regimen] 81 mg PO DAILY 12/22/18 [History] Furosemide [Lasix] 20 mg PO DAILY 12/22/18 [History] Ciprofloxacin [Cipro] 500 mg PO BID 03/20/19 [History] Clotrimazole/Betamethasone Dip [Clotrimazole-Betamethasone Lot] 60 gm .ROUTE BID 03/20/19 [History] Allergy/AdvReac Type Severity Reaction Status Date / Time pravastatin Allergy Anaphylaxis Verified 12/22/18 11:03 atorvastatin AdvReac LEG CRAMPS Verified 12/22/18 11:03 All Systems PM: A 10-system review of systems was performed and is negative for pertinent findings except as documented above in the HPI. - Constitutional Vitals: Temp Pulse Resp BP Pulse Ox 98.1 F 67 16 131/62 94 03/21/19 03:49 03/21/19 03:49 03/21/19 03:49 03/21/19 03:49 03/21/19 03:49 General appearance: Present: cooperative, A&O X 3, pleasant, no acute distress, answers questions appropriately Exam: - - Head Head exam: Present: normal inspection - Eye Eye exam: Present: EOMI, normal appearance Additional comments: Visually impaired - Respiratory Respiratory exam: Present: CTAB. Absent: rales, respiratory distress, rhonchi, wheezes - Cardiovascular Cardiovascular exam: Present: RRR. Absent: diastolic murmur, systolic murmur - GI/Abdominal GI/Abdominal exam: Present: normal bowel sounds, soft. Absent: tenderness - Back Exam Back exam: Present: CVA tenderness (L), tenderness - Neurological Exam Neurological exam: Present: no focal deficits, strengths equal and symetr throughout. Absent: motor sensory deficit, facial droop, speech deficit - Skin Skin exam: Present: dry, normal color, warm Internal Med - H&P Results - Labs CBC & Chem 7: 03/21/19 05:45 03/21/19 05:45 Labs: Short CBC 03/20/19 Range/Units 19:35 WBC 7.7 (4.3-11.1) K/mcL Hgb 12.0 (11.5-15.4) g/dL Hct 36.8 (35.3-44.9) % Plt Count 179 (140-400) K/mcL Neutrophils # 4.6 (1.6-8.9) K/mcL BMP 03/20/19 19:35 Sodium 140 Potassium 4.3 Chloride 103 Carbon Dioxide 29 BUN 30 H Creatinine 1.43 H Glucose 272 H Calcium 9.7 Cardiac Enzymes 03/20/19 Range/Units 19:35 Troponin I < 0.03 (< 0.04) ng/mL Liver Function 03/20/19 Range/Units 19:35 Total Bilirubin 0.3 (0.3-1.0) mg/dL Direct Bilirubin 0.1 (0.0-0.2) mg/dL AST 14 (13-39) Units/L ALT 13 (7-52) Units/L Alkaline Phosphatase 57 (34-104) Units/L Albumin 3.8 (3.5-5.7) g/dL Urine 03/20/19 Range/Units 20:38 Urine Color Yellow (Yellow) Urine Clarity Clear (Clear) Urine pH 5.0 (5.0-8.0) pH Units Ur Specific [place] 1.021 (1.010-1.025) Urine Protein 30 H (Neg-Trace) mg/dL Urine Glucose (UA) Normal (Normal) mg/dL - Impressions ITS Impressions Chest X-Ray 03/20/19 19:23 IMPRESSION: Probable small volume left pleural effusion with left basilar relaxation atelectasis versus pneumonitis. Calcific atherosclerotic disease aorta. Sequela from old granulomatous disease. D/ / Shane Rodriguez / Shane Rodriguez Interpreting Provider: Shane Rodriguez Head CT 03/20/19 19:25 IMPRESSION: No acute intracranial abnormality. Stable exam compared to recent prior study. D/ / Shane Rodriguez / Shane Rodriguez Interpreting Provider: Shane Rodriguez - Assessment and Plan (1) UTI (urinary tract infection) Current Visit: No Status: Acute Assessment and plan: Treatment initiated outpatient with ciprofloxacin, but patient status declined. Urine culture from the grew out Klebsiella pneumonia. Discontinue ciprofloxacin Start Zosyn Follow-up repeat urine cultures Monitor for worsening signs of infection Qualifiers: Urinary tract infection type: site unspecified Hematuria presence: without hematuria Qualified Code(s): N39.0 - Urinary tract infection, site not specified (2) SERENITY (acute kidney injury) Current Visit: Yes Status: Acute Assessment and plan: Likely prerenal, repeat creatinine from this morning is back to baseline after 1 L of IV fluids. Continue to monitor (3) Weakness Current Visit: Yes Status: Acute Assessment and plan: Son notes decreased strength with transfers. PT OT consult in the morning Follow-up recommendations (4) Altered mental status Current Visit: No Status: Acute Assessment and plan: Now improved likely secondary to UTI and possible dehydration. Continue to monitor Qualifiers: Qualified Code(s): R41.82 - Altered mental status, unspecified (5) Back pain Current Visit: No Status: Chronic Assessment and plan: Chronic back pain at baseline patient takes hydrocodone at home. Continue hydrocodone Qualifiers: Back pain location: low back pain Chronicity: chronic Back pain laterality: bilateral Sciatica presence: unspecified whether sciatica present Qualified Code(s): M54.5 - Low back pain; G89.29 - Other chronic pain (6) Diabetes mellitus Current Visit: No Status: Chronic Assessment and plan: Patient is an insulin dependent diabetic Monitor sugars ACHS Diabetic diet Low dose insulin sliding scale as needed Hold home meds. 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
[2019-03-21] MEDS ORDERED: Acetaminophen 325 MG TABLET PO PRN (05:51)
[2019-03-21 06:05] LABS: Hematocrit 34.3 % (35.3-44.9); Hemoglobin 10.9 g/dL (11.5-15.4); Mean Corpuscular HGB Conc 31.8 g/dL (31.6-35.5); Mean Corpuscular Hemoglobin 29.9 pg (28.0-33.3); Mean Platelet Volume 10.7 fL (9.4-12.4); Platelet Count 153 K/mcL (140-400); Red Blood Count 3.65 M/mcL (3.82-4.97); Red Cell Distribution Width 13.9 % (11.5-14.5); White Blood Count 6.4 K/mcL (4.3-11.1)
[2019-03-21] MEDS: *HR* HYDROcodone/Acet 5/325 mg TABLET PO PRN ×2 (06:15→20:59)
[2019-03-21 06:27] LABS: Calcium 9.1 mg/dL (8.6-10.3); Potassium 4.5 mEq/L (3.5-5.1)
[2019-03-21] MEDS: Piperacillin/Tazobactam 3.375 GM in 0.9 % Sodium Chloride Mini Bag 100 ML IVPB SCH ×2 (08:45→17:19)
[2019-03-21] MEDS: Insulin LISPRO 300 UNITS/3 ML VIAL SQ SCH ×3 (08:49→17:19)
--- NOTE | 2019-03-21 12:28 | Internal Med Progress Note ---
Hospitalist Progress Note - Encounter Date of Encounter: 03/21/19 Time of Encounter: 09:00 - Subjective Interval History: Ms. Munson is a 88 year old female with known PMH of advanced dementia, HTN, and DM2 pt was brought into the ER by family stating that patient has been having progressively worsening confusion/altered mental status. She different had UTI with Klebsiella and started on ciprofloxacin. As per family patient also has some issues with physical activity and ambulation lately. She was admitted in the hospital and started her on empirical antibiotic Zosyn. Patient today's more alert, awake and oriented to self.. She is demented and seems to be back to her baseline mentation rodriguez. - Exam Vitals: Temp Pulse Resp BP Pulse Ox 97.8 F 62 18 163/59 95 03/21/19 11:30 03/21/19 11:30 03/21/19 11:30 03/21/19 11:30 03/21/19 11:30 Exam: Gen: Alert, awake, Oriented to self only.. demented Chest: Diminished breath sounds B/L, No wheezing, No crackles, No rales Heart: S1S2+ RRR No murmurs Abd: Soft, NT, BS +, No organomegaly Ext: No edema, pulses are palpable, No calf tenderness Neuro : Demented.. no focal neuro deficits Skin: No rash. - Assessment and Plan (1) Altered mental status Current Visit: No Status: Acute Assessment and Plan: Acute toxic / metabolic encephaloapthy with UTI and Dehydration improving continue IV hydration and empirical antibiotic therapy (2) UTI (urinary tract infection) Current Visit: No Status: Acute Assessment and Plan: Improving Urine cx- P Recent urine cx grew Klebsiella d/c Zosyn and switched to Rocephin (3) SERENITY (acute kidney injury) Current Visit: Yes Status: Acute Assessment and Plan: Mostly due to dehydration resolved with IV hydration (4) Back pain Current Visit: No Status: Chronic Assessment and Plan: Chronic back pain at baseline patient takes hydrocodone at home. Continue hydrocodone (5) DVT prophylaxis Current Visit: No Status: Acute Assessment and Plan: Subcutaneous heparin (6) Diabetes mellitus Current Visit: No Status: Chronic Assessment and Plan: Recent HbA1C 7.8 ADA diet on ISS (7) Weakness Current Visit: Yes Status: Acute Assessment and Plan: PT / OT eval - Time Spent with Patient Total time spent is greater than 50% in coordination of care (as documented) at patient's floor/unit and/or counseling patient: Internal Medicine: Result - Labs CBC & Chem 7: 03/21/19 05:45 03/21/19 05:45 Labs: Short CBC 03/20/19 03/21/19 Range/Units 19:35 05:45 WBC 7.7 6.4 (4.3-11.1) K/mcL Hgb 12.0 10.9 L (11.5-15.4) g/dL Hct 36.8 34.3 L (35.3-44.9) % Plt Count 179 153 (140-400) K/mcL Neutrophils # 4.6 (1.6-8.9) K/mcL BMP 03/20/19 03/21/19 19:35 05:45 Sodium 140 141 Potassium 4.3 4.5 Chloride 103 108 H Carbon Dioxide 29 26 BUN 30 H 26 H Creatinine 1.43 H 1.09 Glucose 272 H 269 H Calcium 9.7 9.1 Cardiac Enzymes 03/20/19 Range/Units 19:35 Troponin I < 0.03 (< 0.04) ng/mL Liver Function 03/20/19 Range/Units 19:35 Total Bilirubin 0.3 (0.3-1.0) mg/dL Direct Bilirubin 0.1 (0.0-0.2) mg/dL AST 14 (13-39) Units/L ALT 13 (7-52) Units/L Alkaline Phosphatase 57 (34-104) Units/L Albumin 3.8 (3.5-5.7) g/dL Urine 03/20/19 Range/Units 20:38 Urine Color Yellow (Yellow) Urine Clarity Clear (Clear) Urine pH 5.0 (5.0-8.0) pH Units Ur Specific [place] 1.021 (1.010-1.025) Urine Protein 30 H (Neg-Trace) mg/dL Urine Glucose (UA) Normal (Normal) mg/dL - ABG Interpretation ABG results: PT/INR, D-dimer PT 11.0 Seconds (9.4-12.1) 03/20/19 19:35 - Impressions Impressions Chest X-Ray 03/20/19 19:23 IMPRESSION: Probable small volume left pleural effusion with left basilar relaxation atelectasis versus pneumonitis. Calcific atherosclerotic disease aorta. Sequela from old granulomatous disease. D/ / Shane Rodriguez / Shane Rodriguez Interpreting Provider: Shane Rodriguez Head CT 03/20/19 19:25 IMPRESSION: No acute intracranial abnormality. Stable exam compared to recent prior study. D/ / Shane Rodriguez / Shane Rodriguez Interpreting Provider: Shane Rodriguez Consult Discharge Plan - Plan Referrals: Estephania Lopes DO [Primary Care Provider] - (1) Altered mental status Qualifiers: Altered mental status type: delirium Qualified Code(s): R41.0 - Disorientation, unspecified (2) UTI (urinary tract infection) Qualifiers: Urinary tract infection type: site unspecified Hematuria presence: without hematuria Qualified Code(s): N39.0 - Urinary tract infection, site not specified (4) Back pain Qualifiers: Back pain location: low back pain Chronicity: chronic Back pain laterality: bilateral Sciatica presence: unspecified whether sciatica present Qualified Code(s): M54.5 - Low back pain; G89.29 - Other chronic pain (6) Diabetes mellitus Qualifiers: Diabetes mellitus type: type 2 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
[2019-03-21] MEDS: *HR* Heparin 5,000 UNIT/ML VIAL SQ SCH (17:20)
[2019-03-21] MEDS ORDERED: Insulin LISPRO 300 UNITS/3 ML VIAL SQ SCH (21:00)
[2019-03-21] MEDS ORDERED: rOPINIRole 1 MG TABLET PO ONE (21:33)
--- NOTE | 2019-03-22 00:24 | Electrocardiograph Report ---
[place] [facility] Effect Test Date: 2019-03-20 Pat Name: Iris Munson Department: [id number] Room: 3B22 Gender: F Any Commodity [employer]er: : [id number] Requested By: Darrell Groves Order Number: [id number] Reading MD: Estephania Lopes Measurements Intervals [place] Rate: 65 P: 28 CO: 269 QRS: -15 QRSD: 109 T: 55 QT: 435 QTc: 453 Interpretive Statements Sinus rhythm Prolonged CO interval Probable left ventricular hypertrophy Electronically Signed On 03-22-2019 0:22:44 EDT by Estephania Lopes
[2019-03-22] MEDS: *HR* HYDROcodone/Acet 5/325 mg TABLET PO PRN ×2 (04:03→09:16)
[2019-03-22] MEDS: *HR* Heparin 5,000 UNIT/ML VIAL SQ SCH (05:36)
[2019-03-22] MEDS: Insulin LISPRO 300 UNITS/3 ML VIAL SQ SCH (09:01)
[2019-03-22] MEDS: Piperacillin/Tazobactam 3.375 GM in 0.9 % Sodium Chloride Mini Bag 100 ML IVPB SCH ×2 (09:16)
--- NOTE | 2019-03-22 09:45 | Discharge Summary ---
- NOTES TO OUTPATIENT PROVIDER Notes to Outpatient Provider: f/u with PCP in one week. Orders not resulted at time of discharge: Pending orders 03/20/19 20:48 Culture,Blood [BC] Stat Date of Encounter: 03/22/19 Time of Encounter: 09:42 - Discharge Diagnosis (1) Altered mental status Priority: Primary Status: Acute Qualifiers: Altered mental status type: delirium Qualified Code(s): R41.0 - Disorientation, unspecified (2) UTI (urinary tract infection) Priority: Primary Status: Acute Qualifiers: Urinary tract infection type: site unspecified Hematuria presence: without hematuria Qualified Code(s): N39.0 - Urinary tract infection, site not specified (3) SERENITY (acute kidney injury) Priority: Primary Status: Acute (4) Back pain Priority: Secondary Status: Chronic Qualifiers: Back pain location: low back pain Chronicity: chronic Back pain laterality: bilateral Sciatica presence: unspecified whether sciatica present Qualified Code(s): M54.5 - Low back pain; G89.29 - Other chronic pain (5) DVT prophylaxis Priority: Secondary Status: Acute (6) Diabetes mellitus Priority: Secondary Status: Chronic Qualifiers: Diabetes mellitus type: type 2 Diabetes mellitus rn long term care insulin use: with rn long term care use Diabetes mellitus complication status: with hyperglycemia Qualified Code(s): E11.65 - Type 2 diabetes mellitus with hyperglycemia; 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 Munson is a 88 year old female with known PMH of advanced dementia, HTN, and DM2 pt was brought into the ER by family stating that patient has been having progressively worsening confusion/altered mental status. She different had UTI with Klebsiella and started on ciprofloxacin. As per family patient also has some issues with physical activity and ambulation lately. She was admitted in the hospital and started her on empirical antibiotic Zosyn. Her UA was benign however with abx pt symptoms started improving slowly. Today she is more alert, awake and oriented to self. Her Urine cx from 03/15/19 grew Klebsiella. So will d/c her home with PO Omnicef for 5 more days. - Time Spent with Patient Total time spent providing and/or coordinating discharge services: - Discharge Medications Prescriptions: New Cefdinir [Omnicef] 300 mg PO BID #8 capsule Continued Memantine [Namenda] 5 mg PO BID Multivit-Min/Iron Fum/Folic AC [Jvfcr-Jfzvslu-Qzkpaphx Tablet] 1 tab PO DAILY Magnesium Oxide [Magnesium] 400 mg PO ONCE Pregabalin [Lyrica] 100 mg PO BID Losartan Potassium [Cozaar] 100 mg PO DAILY Alendronate Sodium [Fosamax] 35 mg PO MO Insulin Glargine,Hum.rec.anlog [Lantus Solostar] 45 unit SQ HS [place]-3/Dha/Epa/Fish Oil [Fish Oil 1,000 mg Softgel] 1 cap PO BID Furosemide [Lasix] 20 mg PO BID Docusate [Colace] 100 mg PO BID Calcium Carbonate/Vitamin D3 [Calcium 500 + Vit D Caplet] 1 tab PO BID Atenolol [Tenormin] 50 mg PO BID Insulin ASPART [Novolog Flexpen] 10 - 20 units SQ TIDWM Cyanocobalamin (Vitamin B-12) [Vitamin B-12] 1,000 mcg SL 3XW Quetiapine Fumarate [Seroquel] 12.5 - 25 mg PO BID PRN PRN Reason: Agitation Ropinirole HCl [Requip] 3 mg PO HS Colesevelam HCl [Welchol] 3 tab PO BID HYDROcodone/Acet 7.5/325 mg [[place] 7.5-325 mg] 1 tab PO TID PRN PRN Reason: Pain Aspirin [Adult Aspirin Regimen] 81 mg PO DAILY Clotrimazole/Betamethasone Dip [Clotrimazole-Betamethasone Lot] 60 gm .ROUTE BID Discontinued Ciprofloxacin [Cipro] 500 mg PO BID Home Medications: Alendronate Sodium [Fosamax] 35 mg PO MO 09/29/18 [History] Atenolol [Tenormin] 50 mg PO BID 09/29/18 [History] Calcium Carbonate/Vitamin D3 [Calcium 500 + Vit D Caplet] 1 tab PO BID 09/29/18 [History] Colesevelam HCl [Welchol] 3 tab PO BID 09/29/18 [History] Cyanocobalamin (Vitamin B-12) [Vitamin B-12] 1,000 mcg SL 3XW 09/29/18 [History] Docusate [Colace] 100 mg PO BID 09/29/18 [History] Furosemide [Lasix] 20 mg PO BID 09/29/18 [History] Insulin ASPART [Novolog Flexpen] 10 - 20 units SQ TIDWM 09/29/18 [History] Insulin Glargine,Hum.rec.anlog [Lantus Solostar] 45 unit SQ HS 09/29/18 [History] Losartan Potassium [Cozaar] 100 mg PO DAILY 09/29/18 [History] Magnesium Oxide [Magnesium] 400 mg PO ONCE 09/29/18 [History] Memantine [Namenda] 5 mg PO BID 09/29/18 [History] Multivit-Min/Iron Fum/Folic AC [Zbpxb-Rqbjpwt-Nbsueuot Tablet] 1 tab PO DAILY 09/29/18 [History] [place]-3/Dha/Epa/Fish Oil [Fish Oil 1,000 mg Softgel] 1 cap PO BID 09/29/18 [History] Pregabalin [Lyrica] 100 mg PO BID 09/29/18 [History] Quetiapine Fumarate [Seroquel] 12.5 - 25 mg PO BID PRN 09/29/18 [History] Ropinirole HCl [Requip] 3 mg PO HS 09/29/18 [History] HYDROcodone/Acet 7.5/325 mg [R[place]her[place] 7.5-325 mg] 1 tab PO TID PRN 12/10/18 [History] Aspirin [Adult Aspirin Regimen] 81 mg PO DAILY 12/22/18 [History] Clotrimazole/Betamethasone Dip [Clotrimazole-Betamethasone Lot] 60 gm .ROUTE BID 03/20/19 [History] Cefdinir [Omnicef] 300 mg PO BID #8 capsule 03/22/19 [Rx] Allergies/Adverse Reactions: Allergy/AdvReac Type Severity Reaction Status Date / Time pravastatin Allergy Anaphylaxis Verified 03/21/19 15:10 atorvastatin AdvReac LEG CRAMPS Verified 03/21/19 15:10 Date of admission: 03/20/19 21:57 Primary care physician: Estephania Lopes DO Consults: 03/21/19 05:18 Consult to Occupational Therapy [CONS] Routine Comment: Evaluate, develop and implement POC Reason for Consult: Weakness, loss of coordination. Likely secondary to UTI Does patient have active BEDREST order?: No Is patient medically & hemodynamically stable?: Yes Patient assessed for mobility or mobilized this visit?: No Consult to Physical Therapy [CONS] Routine Comment: Evaluate, develop and implement POC Reason for Consult: Weakness, loss of coordination. Likely secondary to UTI Does patient have active BEDREST order?: No Is patient medically & hemodynamically stable?: Yes Patient assessed for mobility or mobilized this visit?: No - Constitutional Vitals: Temp Pulse Resp BP Pulse Ox 98.3 F 65 17 178/70 99 03/22/19 07:53 03/22/19 07:53 03/22/19 07:53 03/22/19 07:53 03/22/19 07:53 General appearance: Present: cooperative, A&O X 3, pleasant, no acute distress, answers questions appropriately Exam: Gen: Alert, awake, Oriented to self only.. demented Chest: Diminished breath sounds B/L, No wheezing, No crackles, No rales Heart: S1S2+ RRR No murmurs Abd: Soft, NT, BS +, No organomegaly Ext: No edema, pulses are palpable, No calf tenderness Neuro : Demented.. no focal neuro deficits Skin: No rash. - Patient Status Disposition: Home Health Service Condition: Good Overall status at discharge: patient is back to baseline - Discharge Instructions Follow Up With: Kemar Dean DO [Partnered Physician] - 04/27/19 2:00 pm Estephania Lopes DO [Primary Care Provider] - 03/29/19 10:35 am () Morris Gilmore MD [Non-Partnered Physician] - 04/12/19 8:40 am - Diet and Activity Activity: increase activity as tolerated Diet: low salt diet
--- NOTE | 2019-03-22 09:56 | Physician Discharge Referral ---
Home Health/Hosp Referral Info Transfer to: Home Health Provider in Charge Post Discharge: PCP - Diagnosis (1) Altered mental status Status: Acute (2) UTI (urinary tract infection) Status: Acute (3) SERENITY (acute kidney injury) Status: Acute (4) Back pain Status: Chronic (5) DVT prophylaxis Status: Acute (6) Diabetes mellitus Status: Chronic (7) Weakness Status: Acute - Respiratory Orders Smoking Cessation: Smoking cessation has been advised. For more information, call the [place] Tobacco Quit Line at 4-778-IIIL-NOW. - Services Needed Following services are medically necessary services: Nursing, Physical Therapy, Occupational Therapy - Transfer Medications Prescriptions: Cefdinir [Omnicef] 300 mg PO BID #8 capsule Home Medications: Alendronate Sodium [Fosamax] 35 mg PO MO 09/29/18 [History] Atenolol [Tenormin] 50 mg PO BID 09/29/18 [History] Calcium Carbonate/Vitamin D3 [Calcium 500 + Vit D Caplet] 1 tab PO BID 09/29/18 [History] Colesevelam HCl [Welchol] 3 tab PO BID 09/29/18 [History] Cyanocobalamin (Vitamin B-12) [Vitamin B-12] 1,000 mcg SL 3XW 09/29/18 [History] Docusate [Colace] 100 mg PO BID 09/29/18 [History] Furosemide [Lasix] 20 mg PO BID 09/29/18 [History] Insulin ASPART [Novolog Flexpen] 10 - 20 units SQ TIDWM 09/29/18 [History] Insulin Glargine,Hum.rec.anlog [Lantus Solostar] 45 unit SQ HS 09/29/18 [History] Losartan Potassium [Cozaar] 100 mg PO DAILY 09/29/18 [History] Magnesium Oxide [Magnesium] 400 mg PO ONCE 09/29/18 [History] Memantine [Namenda] 5 mg PO BID 09/29/18 [History] Multivit-Min/Iron Fum/Folic AC [Ixcww-Tdlqmyi-Bilpqbdc Tablet] 1 tab PO DAILY 09/29/18 [History] [place]-3/Dha/Epa/Fish Oil [Fish Oil 1,000 mg Softgel] 1 cap PO BID 09/29/18 [History] Pregabalin [Lyrica] 100 mg PO BID 09/29/18 [History] Quetiapine Fumarate [Seroquel] 12.5 - 25 mg PO BID PRN 09/29/18 [History] Ropinirole HCl [Requip] 3 mg PO HS 09/29/18 [History] HYDROcodone/Acet 7.5/325 mg [[place] 7.5-325 mg] 1 tab PO TID PRN 12/10/18 [History] Aspirin [Adult Aspirin Regimen] 81 mg PO DAILY 12/22/18 [History] Clotrimazole/Betamethasone Dip [Clotrimazole-Betamethasone Lot] 60 gm .ROUTE BID 03/20/19 [History] Cefdinir [Omnicef] 300 mg PO BID #8 capsule 03/22/19 [Rx] Allergies/Adverse Reactions: Allergy/AdvReac Type Severity Reaction Status Date / Time pravastatin Allergy Anaphylaxis Verified 03/21/19 15:10 atorvastatin AdvReac LEG CRAMPS Verified 03/21/19 15:10 Certification: Further, I certify that my clinical findings support that this patient is homebound (i.e. absences from home require considerable and taxing effort and are for medical reasons or cheondoism services or infrequently or short duration when for other reasons) because: Homebound Reason: Patient requires assistance of a person or device to safely leave home Attestation: My signature below is to certify that this patient is under my care and that I, or nurse practitioner, or a physician's offset press assistant working with me, has a [id number] encounter with this patient.
[2019-03-22 11:53] VITALS: BP 179/65
[2019-03-22] MEDS ORDERED: rOPINIRole 1 MG TABLET PO ONE (21:14)
== END 2019-03-22 12:04 | disposition home health service (06) ==
LOC: 3BNU 18:41 → EMEROOARM 18:41 → 3BNU 23:00
PROVIDERS: ADMIT Family Medicine; ATTEND Family Medicine